=== PATIENT | female | born 1945 | race Caucasian/White ===

== ENCOUNTER → 2016-07-13 | Outpatient (CLI) | payer MEDICARE, OTHER ==
--- NOTE | 2016-07-13 14:33 | CR ---
EXAMINATION: Two-view chest (PA and Lateral views). HISTORY: Pain. FINDINGS: The trachea is midline. The cardiomediastinal silhouette is within normal limits. No pulmonary infil trates, effusions or pneumothorax. Mild chronic interstitial prominence. Degenerative changes are noted within the shoulders bilaterally. IMPRESSION: No acute cardiopulmonary process.
--- NOTE | 2016-07-13 16:58 | CR ---
EXAMINATION: Pelvis HISTORY: Pain COMPARISON: None TECHNIQUE: AP view FINDINGS: There is no acute osseous abnormality or fracture identified. SI joints are symmetric with mild anterior osteophytes. Bone mineralization appears normal to mildly osteopenic. Prominent osteo phytes are noted along the superior rims of the hips bilaterally with likely minimal joint space marly rowing. Postsurgical changes are noted within the lower lumbar spine. IMPRESSION: Degenerative changes without acute findings.
== END ==
LOC: MW.DI 13:28
PROVIDERS: ATTEND Emergency Medicine
DX: R10.2 Pelvic and perineal pain (principal); R07.9 Chest pain, unspecified
CPT/HCPCS: 71020; 72170; G0463

== ENCOUNTER → 2016-08-08 | Outpatient (CLI) | payer MEDICARE, OTHER | LOC: MW.CHENT 08:00 | PROVIDERS: ATTEND Otolaryngology | DX: H93.19 Tinnitus, unspecified ear (principal); H90.5 Unspecified sensorineural hearing loss | CPT/HCPCS: 99204 ==

== ENCOUNTER → 2016-08-23 | Outpatient (CLI) | payer MEDICARE, OTHER | LOC: MW.CHFP 10:23 | PROVIDERS: ATTEND Emergency Medicine | DX: N39.0 Urinary tract infection, site not specified (principal); R73.03 Prediabetes; I10 Essential (primary) hypertension | CPT/HCPCS: 81001; 87086; G0463 ==

== ENCOUNTER → 2016-09-18 | Outpatient (CLI) | payer MEDICARE, OTHER ==
--- NOTE | 2016-09-19 09:52 | CR ---
EXAMINATION: Left humerus HISTORY: Pain COMPARISON: None TECHNIQUE: 2 views FINDINGS/IMPRESSION: Advanced osteoarthritic changes are noted within the left shoulder. No fracture or acute osseous abnormality. Bone mineralization is otherwise normal.
== END | disposition home or self-care (01) ==
LOC: MW.CHFP 15:14
PROVIDERS: ATTEND Physician Assistant
DX: M79.622 Pain in left upper arm (principal); M19.012 Primary osteoarthritis, left shoulder
CPT/HCPCS: 73060-26-LT; 73060-LT; 99214

== ENCOUNTER 2016-11-30 08:18 | Day surgery (SDC) | payer MEDICARE, OTHER ==
[~2016-11-30 08:18] MED LIST: Lactated Ringers 1,000 ML IV SCH
[2016-11-30] MEDS ORDERED: Propofol 200 MG/20 ML SDV ONE ×5 (09:02→10:39)
[2016-11-30] MEDS ORDERED: Lidocaine 2% 5 ML SDV ONE (09:02)
[2016-11-30] MEDS ORDERED: fentaNYL 100 MCG/2 ML SDV ONE (09:03)
[2016-11-30] MEDS ORDERED: Midazolam 1 MG/ML 2 ML SDV ONE (09:03)
--- NOTE | 2016-11-30 09:18 | PCM.PREANE ---
Preanesthetic Assessment - Anesthesia/Transfusion/Family Hx Anesthesia History: Prior Anesthesia Without Reaction Other Type of Anesthesia Reaction Comment: Denies any known problem in pst, G- Daughter w leukemia had problems Family History of Anesthesia Reaction: Yes Intubation History: Unknown - Review of Systems General: No Symptoms Pulmonary: No Symptoms Cardiovascular: No Symptoms Gastrointestinal: No Symptoms Neurological: No Symptoms Other: Reports: None - Physical Assessment O2 Sat by Pulse Oximetry: 96 Respiratory Rate: 16 Vital Signs: Last Vital Signs Temp 36.7 C 11/30/16 08:52 Pulse 99 11/30/16 08:52 Resp 16 11/30/16 08:52 BP 138/60 11/30/16 08:52 Pulse Ox 96 11/30/16 08:52 Height: 1.73 m Weight: 87.543 kg ASA Class: 3 Mental Status: Alert & Oriented x3 Airway Class: Mallampati = 2 Dentition: Reports: Partial (fixed upper), [place](s) (multiple upper and lower), Implants (x1 upper right) Thyro-Mental Finger Breadths: 3 Mouth Opening Finger Breadths: 3 ROM/Head Extension: Full Lungs: Clear to Auscultation, Normal Respiratory Effort Cardiovascular: Regular Rate, Regular Rhythm - Allergies Allergies/Adverse Reactions: Allergies Allergy/AdvReac Type Severity Reaction Status Date / Time duloxetine Allergy Dizziness Verified 11/28/16 08:20 hydrochlorothiazide Allergy lowers Verified 11/28/16 14:25 [From Maxzide] potassium meclizine Allergy Other Verified 02/09/15 14:21 metformin Allergy Renal Verified 11/28/16 08:20 Failure Sulfa (Sulfonamide Allergy Hives Verified 02/09/15 14:21 Antibiotics) Thiazides Allergy lowers Verified 11/28/16 14:26 potassium triamterene [From Maxzide] Allergy Other Verified 02/09/15 14:21 Adhesive tape Allergy skin turns Uncoded 11/28/16 14:26 brown meclizine Allergy palpatation Uncoded 11/28/16 14:27 s - Blood Blood Available: No - Anesthesia Plan Pre-Op Medication Ordered: None - Acknowledgements Anesthesia Type Planned: MAC Pt an Appropriate Candidate for the Planned Anesthesia: Yes Alternatives and Risks of Anesthesia Discussed w Pt/Guardian: Yes Pt/Guardian Understands and Agrees with Anesthesia Plan: Yes PreAnesthesia Questionnaire HEENT History: Reports: Other (See Below) Other HEENT History: wears glasses Cardiovascular History: Reports: Heart Murmur, High Cholesterol, [place] Other Cardiovascular History: "had [place] but didnt know I had it, showed on EKG", MVP, bifascicular block with PRWP, h/o palpitations (not recently) Gastrointestinal History: Reports: Colon Polyp, Other (See Below) Other Gastrointestinal History: hx rectal cancer Genitourinary History: Reports: Chronic Renal Insuffiency ACCOUNT COORDINATOR History: Reports: Musculoskeletal History: Reports: Arthritis, Neck Pain, Chronic, Osteoarthritis , Osteoporosis, RA, Other (See Below) (chronic pain syndrome) Neurological History: Reports: Migraines, Other (See Below) (peripheral neuropathy) Psychiatric History: Reports: Anxiety, Depression Endocrine/Metabolic History: Reports: Hypothyroidism, Other (See Below) ( borderline diabetes) Hematologic History: Reports: Other (See Below) Other Hematologic History: "I bleed easily lately" Oncologic (Cancer) History: Reports: Other (See Below) Other Oncologic History: rectal cancer Dermatologic History: Reports: Psoriasis - Past Surgical History Head Surgeries/Procedures: Reports: None HEENT Surgical History: Reports: Tonsillectomy, Other (See Below) Other HEENT Surgeries/Procedures: lashell blepharoplasty GI Surgical History: Reports: Cholecystectomy, Colonoscopy, EGD, Other (See Below) (hemorrhoidectomy, radiation and chemo for anal cancer '03) Other Female Surgeries/Procedures: diagnostic cysto Neurological Surgical History: Reports: Lumbar Spine Other Neurological Surgeries/Procedures: back surgery Musculoskeletal Surgical History: Reports: Knee Replacement, Shoulder Surgery Other Musculoskeletal Surgeries/Procedures:: lashell knee replacement, lashell thumb surgery - SUBSTANCE USE Smoking Status *Q: Never Smoker Second Hand Smoke Exposure: No Days Per Week of Alcohol Use: 0 Number of Drinks Per Day: 0 Total Drinks Per Week: 0 Recreational Drug Use History: No - HOME MEDS Home Medications: Home Meds Furosemide [Lasix] 40 mg PO DAILY 02/02/14 [History] Potassium 20 meq PO DAILY 02/02/14 [History] Pravastatin [Pravachol] 20 mg PO DAILY 02/02/14 [History] Spironolactone [Aldactone] 25 mg PO DAILY 02/02/14 [History] traMADol [Ultram ER] 50 mg PO ASDIRECTED PRN 02/02/14 [History] InFLIXimab [Remicade] 100 mg IV ASDIRECTED 03/04/14 [History] Krill/Om-3/DHA/EPA/Phospho/Ast [Krill Oil 1,000 mg Softgel] 1,000 mg PO BID [History] Lutein/Minerals/Vit A,C & E [Ocuvite] 1 tab PO DAILY 03/04/14 [History] Multivitamin [Multi Vitamin Daily] 1 tab PO DAILY 03/04/14 [History] traZODone HCl [Trazodone HCl] 100 mg PO BEDTIME PRN 03/04/14 [History] Aspirin 81 mg PO DAILY 02/09/15 [History] Cholecalciferol (Vitamin D3) [Vitamin D3] 1,000 units PO DAILY 11/28/16 [History ] Emollient Combination No.10 [Pedro Cream] 1 applic TOP ASDIRECTED 11/28/16 [ History] Emollient Combination No.10 [Biafine] 1 applic TOP ASDIRECTED 11/28/16 [History] Levothyroxine Sodium [Synthroid] 112 mcg PO DAILY 11/28/16 [History] Lidocaine/Prilocaine [Lidocaine-Prilocaine Cream] 1 applic TOP ASDIRECTED PRN [History] Magnesium 200 mg PO DAILY 11/28/16 [History] Omeprazole 20 mg PO DAILY 11/28/16 [History] Ondansetron [Zofran Odt] 8 mg SL ASDIRECTED PRN 11/28/16 [History] Sertraline HCl 100 mg PO DAILY 11/28/16 [History] buPROPion HCl [Wellbutrin Xl] 150 mg PO DAILY 11/28/16 [History] - CURRENT (IN HOUSE) MEDS Current Meds: Current Medications Lactated Ringer's (Ringers, Lactated) 1,000 mls @ 125 mls/hr IV ASDIRECTED ROSLYN Last Admin: 11/30/16 08:46 Dose: 125 mls/hr Discontinued Medications Fentanyl (Sublimaze) Confirm Administered Dose 100 mcg .ROUTE .STK-MED ONE Stop: 11/30/16 09:04 Lidocaine (Xylocaine-Mpf 2%) Confirm Administered Dose 5 ml .ROUTE .STK-MED ONE Stop: 11/30/16 09:03 Midazolam HCl (Versed 1 Mg/Ml) Confirm Administered Dose 2 mg .ROUTE .STK-MED ONE Stop: 11/30/16 09:04 Propofol (Diprivan 20 Ml) Confirm Administered Dose 200 mg .ROUTE .STK-MED ONE Stop: 11/30/16 09:03
--- NOTE | 2016-11-30 11:05 | PCM.OPNOTE ---
- General Post-Op/Procedure Note Date of Surgery/Procedure: 11/30/16 Operative Procedure(s): Colonoscopy with cold rectal polypectomy and cecal biopsies Pre Op Diagnosis: Change in bowel habits. Rectal bleeding. Remote history of squamous cell carcinoma of the anus, treated with radiation therapy. Post-Op Diagnosis: Nonspecific colitis of the cecum. Proctitis. Anesthesia Technique: MAC (ASA III) Primary Surgeon: Ivan Dyer Condition: Good Free Text/Narrative:: Dictation [id number] CPT CODE 17159
[2016-11-30] MEDS ORDERED: Lactated Ringers 1,000 ML IV SCH (11:15)
[2016-11-30 11:27] VITALS: BP 96/48
--- NOTE | 2016-11-30 16:19 | OR ---
SURGEON: Ivan Dyer M.D. DATE OF PROCEDURE: 11/30/2016 OPERATION PERFORMED: Colonoscopy with cecal biopsies and cold rectal polypectomy. ANESTHESIA: MAC. ASA CLASSIFICATION: III. PREOPERATIVE DIAGNOSES: 1. Change in bowel habits. 2. Rectal bleeding. 3. History of squamous cell carcinoma of the anus, treated remotely. POSTOPERATIVE DIAGNOSES: 1. Nonspecific colitis in the cecum. 2. Rectal polyp. 3. Proctitis. DESCRIPTION OF PROCEDURE: The patient was taken to the endoscopy room and positioned on the endoscopy table in the left lateral decubitus position. Time-out was called for appropriate identification of the patient and procedure. Monitored anesthesia care was provided. The colonoscope was inserted into the rectum and advanced with great difficulty to the cecum. Cecum was identified by internal landmarks and external pressure. There was some blood present in the cecum and proximal ascending colon. Biopsies of this area were obtained. The colonoscope was retroflexed to visualize the ascending colon from below, then straightened, and slowly withdrawn. The remainder of the ascending colon, hepatic flexure, transverse colon, splenic flexure, descending colon, and sigmoid colon showed no tumors, polyps, diverticula, angiodysplasia, or evidence of inflammatory bowel disease. One polyp was encountered in the proximal rectum and removed with the cold biopsy forceps. The distal rectum does show significant inflammatory changes consistent with her history of radiation treatment. I did not see any tumor masses. Despite multiple maneuvers, we were never able to retroflex the colonoscope in the rectum. The colonoscope was then removed with the patient having tolerated the procedure well. It should be noted that prior to insertion of the colonoscope at beginning of the procedure, digital rectal examination was done and no masses were noted in the rectum. The patient tolerated the procedure well and was taken to recovery room in stable condition. HALEY / JARED /[id number]
== END 2016-11-30 11:44 | disposition home or self-care (01) ==
LOC: MW.SDS 08:18
PROVIDERS: ATTEND Surgery
PROC: 0DBH8ZX Excision of Cecum, Via Natural or Artificial Opening Endoscopic, Diagnostic (ICD-10-PCS; principal; 2016-11-30)
PROC: 0DBP8ZX Excision of Rectum, Via Natural or Artificial Opening Endoscopic, Diagnostic (ICD-10-PCS; 2016-11-30)
DX: Z12.11 Encounter for screening for malignant neoplasm of colon (principal); D12.8 Benign neoplasm of rectum; Z85.048 Personal history of other malignant neoplasm of rectum, rectosigmoid junction, and anus; R19.4 Change in bowel habit; K92.1 Melena; K62.89 Other specified diseases of anus and rectum; K52.9 Noninfective gastroenteritis and colitis, unspecified; Z86.010 Personal history of colon polyps; I12.9 Hypertensive chronic kidney disease with stage 1 through stage 4 chronic kidney disease, or unspecified chronic kidney disease; N18.9 Chronic kidney disease, unspecified; R73.03 Prediabetes; M54.2 Cervicalgia; F51.04 Psychophysiologic insomnia; G89.4 Chronic pain syndrome; F32.9 Major depressive disorder, single episode, unspecified; R26.81 Unsteadiness on feet; Z98.1 Arthrodesis status; E78.00 Pure hypercholesterolemia, unspecified; I95.9 Hypotension, unspecified; E03.9 Hypothyroidism, unspecified; M51.36 Other intervertebral disc degeneration, lumbar region; M48.06 Spinal stenosis, lumbar region; I34.1 Nonrheumatic mitral (valve) prolapse; R42 Dizziness and giddiness; M16.12 Unilateral primary osteoarthritis, left hip; G62.9 Polyneuropathy, unspecified; L40.50 Arthropathic psoriasis, unspecified; M06.9 Rheumatoid arthritis, unspecified; G47.9 Sleep disorder, unspecified; H93.19 Tinnitus, unspecified ear; Z79.82 Long term (current) use of aspirin; Z79.899 Other long term (current) drug therapy; Z88.2 Allergy status to sulfonamides; Z88.8 Allergy status to other drugs, medicaments and biological substances; Z91.048 Other nonmedicinal substance allergy status; Z98.84 Bariatric surgery status
CPT/HCPCS: 45380; J2250; J3010; J7120; 00810; 88305; J2704

== ENCOUNTER 2018-02-12 18:12 | Observation (INO) | payer MEDICARE, OTHER ==
[2018-02-12] MEDS ORDERED: Ondansetron 4 MG/2 ML SDV IVPUSH ONE ×2 (18:18→19:01)
--- NOTE | 2018-02-12 18:20 | EDM.PDOC ---
<Alvin Ceja - Last Filed: 02/12/18 22:26> ED HPI GENERAL MEDICAL PROBLEM - General Stated Complaint: VOMITING AND LOTS OF GAS Time Seen by Provider: 02/12/18 18:17 Source of Information: Reports: Patient History Limitations: Reports: No Limitations - History of Present Illness INITIAL COMMENTS - FREE TEXT/NARRATIVE: Dr. Ceja taking our patient care at 2030. I then thoroughly briefed on the patient and have reviewed all pertinent labs and radiologic findings. I personally examined the patient and agree with the above. Patient does have leukocytosis as well as a confirmed 9 mm obstructing calculus in the proximal right ureter with moderate hydronephrosis. I did order blood cultures as well as lactate and started the patient on Rocephin as well as gentamicin. Urinalysis is still pending. Urinalysis positive for acute cystitis. As above patient is on antibiotics. I did call Dr. Brunner, urologist and advised of the patient. He is in route to see the patient. Patient admitted observation Dr. Brunner - Related Data Allergies Allergy/AdvReac Type Severity Reaction Status Date / Time duloxetine Allergy Dizziness Verified 02/13/18 07:49 hydrochlorothiazide Allergy lowers Verified 02/13/18 07:49 [From Maxzide] potassium meclizine Allergy Other Verified 02/12/18 18:40 metformin Allergy Renal Verified 02/13/18 07:49 Failure Sulfa (Sulfonamide Allergy Hives Verified 02/13/18 07:49 Antibiotics) Thiazides Allergy lowers Verified 02/13/18 07:49 potassium triamterene [From Maxzide] Allergy Other Verified 02/13/18 07:49 Adhesive tape Allergy skin turns Uncoded 11/28/16 14:26 brown meclizine Allergy palpatation Uncoded 02/12/18 18:40 s Home Meds: Home Meds Furosemide [Lasix] 40 mg PO DAILY 02/02/14 [History] Potassium 20 meq PO DAILY 02/02/14 [History] Pravastatin [Pravachol] 20 mg PO DAILY 02/02/14 [History] Spironolactone [Aldactone] 25 mg PO DAILY 02/02/14 [History] traMADol [Ultram ER] 50 mg PO ASDIRECTED PRN 02/02/14 [History] Krill/Om-3/DHA/EPA/Phospho/Ast [Krill Oil 1,000 mg Softgel] 1,000 mg PO BID [History] traZODone HCl [Trazodone HCl] 100 mg PO BEDTIME PRN 03/04/14 [History] Aspirin 81 mg PO DAILY 02/09/15 [History] Levothyroxine Sodium [Synthroid] 112 mcg PO DAILY 11/28/16 [History] Magnesium 100 mg PO DAILY 11/28/16 [History] Omeprazole 20 mg PO DAILY 11/28/16 [History] Sertraline HCl 100 mg PO DAILY 11/28/16 [History] buPROPion HCl [Wellbutrin Xl] 150 mg PO DAILY 11/28/16 [History] Lactobacillus Acidophilus [Probiotic] 1 cap PO DAILY 02/12/18 [History] Multivit-Min/FA/Lycopene/Lut [Centrum Silver Tablet] 1 each PO DAILY 02/12/18 [ History] Vit A/Vit C/Vit E/Zinc/Copper [Preservision] 2 each PO DAILY 02/12/18 [History] oxyCODONE 5 tab PO ASDIRECTED PRN 02/12/18 [History] ED ROS GENERAL - Review of Systems Review Of Systems: ROS reveals no pertinent complaints other than HPI. ED EXAM, GI/ABD - Physical Exam Exam: See Below Course - Vital Signs Last Recorded V/S: Last Vital Signs Temp 98.6 F 02/14/18 08:00 Pulse 73 02/14/18 08:00 Resp 14 02/14/18 08:00 BP 99/56 L 02/14/18 08:00 Pulse Ox 96 02/14/18 08:00 - Orders/Labs/Meds Labs: Laboratory Tests 02/12/18 02/12/18 02/12/18 Range/Units 18:30 18:30 18:30 WBC 14.05 H (4.0-11.0) K/uL RBC 4.94 (4.30-5.90) M/uL Hgb 14.9 (12.0-16.0) g/dL Hct 43.0 (36.0-46.0) % MCV 87.0 (80.0-98.0) fL MCH 30.2 (27.0-32.0) pg MCHC 34.7 (31.0-37.0) g/dL RDW Std Deviation 45.9 (28.0-62.0) fl RDW Coeff of Kelley 14 (11.0-15.0) % Plt Count 112 L (150-400) K/uL MPV 11.70 (7.40-12.00) fL Neut % (Auto) 91.1 H (48.0-80.0) % Lymph % (Auto) 5.5 L (16.0-40.0) % Harvey % (Auto) 2.7 (0.0-15.0) % Eos % (Auto) 0.6 (0.0-7.0) % Baso % (Auto) 0.1 (0.0-1.5) % Neut # (Auto) 12.8 H (1.4-5.7) K/uL Lymph # (Auto) 0.8 (0.6-2.4) K/uL Harvey # (Auto) 0.4 (0.0-0.8) K/uL Eos # (Auto) 0.1 (0.0-0.7) K/uL Baso # (Auto) 0.0 (0.0-0.1) K/uL Nucleated RBC % 0.0 /100WBC Nucleated RBCs # 0 K/uL Lactate (0.20-2.00) mmol/L Sodium 138 (136-145) mmol/L Potassium 3.9 (3.5-5.1) mmol/L Chloride 102 (98-107) mmol/L Carbon Dioxide 30.8 (21.0-32.0) mmol/L BUN 22 H (7.0-18.0) mg/dL Creatinine 1.5 H (0.6-1.0) mg/dL Est Cr Clr Drug Dosing 34.70 mL/min Estimated GFR (MDRD) 34.2 ml/min Glucose 192 H (74-106) mg/dL Calcium 9.8 (8.5-10.1) mg/dL Total Bilirubin 0.8 (0.2-1.0) mg/dL AST 27 (15-37) IU/L ALT 26 (14-63) IU/L Alkaline Phosphatase 134 H (46-116) U/L Total Protein 8.3 H (6.4-8.2) g/dL Albumin 3.9 (3.4-5.0) g/dL Globulin 4.4 H (2.0-3.5) g/dL Albumin/Globulin Ratio 0.9 L (1.3-2.8) Amylase 38 (25-115) U/L Lipase 198 (73-393) U/L Urine Color Urine Appearance Urine pH (5.0-8.0) Ur Specific Levasy (1.001-1.035) Urine Protein (NEGATIVE) mg/dL Urine Glucose (UA) (NEGATIVE) mg/dL Urine Ketones (NEGATIVE) mg/dL Urine Occult Blood (NEGATIVE) Urine Nitrite (NEGATIVE) Urine Bilirubin (NEGATIVE) Urine Urobilinogen (<2.0) EU/dL Ur Leukocyte Esterase (NEGATIVE) Urine RBC (0-2/HPF) Urine WBC (0-5/HPF) Ur Epithelial Cells (NONE-FEW) Urine Bacteria (NEGATIVE) Urine Mucus (NONE-MOD) 02/12/18 02/12/18 Range/Units 20:40 21:10 WBC (4.0-11.0) K/uL RBC (4.30-5.90) M/uL Hgb (12.0-16.0) g/dL Hct (36.0-46.0) % MCV (80.0-98.0) fL MCH (27.0-32.0) pg MCHC (31.0-37.0) g/dL RDW Std Deviation (28.0-62.0) fl RDW Coeff of Kelley (11.0-15.0) % Plt Count (150-400) K/uL MPV (7.40-12.00) fL Neut % (Auto) (48.0-80.0) % Lymph % (Auto) (16.0-40.0) % Harvey % (Auto) (0.0-15.0) % Eos % (Auto) (0.0-7.0) % Baso % (Auto) (0.0-1.5) % Neut # (Auto) (1.4-5.7) K/uL Lymph # (Auto) (0.6-2.4) K/uL Harvey # (Auto) (0.0-0.8) K/uL Eos # (Auto) (0.0-0.7) K/uL Baso # (Auto) (0.0-0.1) K/uL Nucleated RBC % /100WBC Nucleated RBCs # K/uL Lactate 2.0 (0.20-2.00) mmol/L Sodium (136-145) mmol/L Potassium (3.5-5.1) mmol/L Chloride (98-107) mmol/L Carbon Dioxide (21.0-32.0) mmol/L BUN (7.0-18.0) mg/dL Creatinine (0.6-1.0) mg/dL Est Cr Clr Drug Dosing mL/min Estimated GFR (MDRD) ml/min Glucose (74-106) mg/dL Calcium (8.5-10.1) mg/dL Total Bilirubin (0.2-1.0) mg/dL AST (15-37) IU/L ALT (14-63) IU/L Alkaline Phosphatase (46-116) U/L Total Protein (6.4-8.2) g/dL Albumin (3.4-5.0) g/dL Globulin (2.0-3.5) g/dL Albumin/Globulin Ratio (1.3-2.8) Amylase (25-115) U/L Lipase (73-393) U/L Urine Color YELLOW Urine Appearance CLEAR Urine pH 7.5 (5.0-8.0) Ur Specific Levasy 1.015 (1.001-1.035) Urine Protein NEGATIVE (NEGATIVE) mg/dL Urine Glucose (UA) NEGATIVE (NEGATIVE) mg/dL Urine Ketones NEGATIVE (NEGATIVE) mg/dL Urine Occult Blood SMALL H (NEGATIVE) Urine Nitrite POSITIVE H (NEGATIVE) Urine Bilirubin NEGATIVE (NEGATIVE) Urine Urobilinogen 1.0 (<2.0) EU/dL Ur Leukocyte Esterase MODERATE (NEGATIVE) Urine RBC 0-2 (0-2/HPF) Urine WBC 4-8 (0-5/HPF) Ur Epithelial Cells RARE (NONE-FEW) Urine Bacteria 2+ H (NEGATIVE) Urine Mucus LIGHT (NONE-MOD) Meds: Medications Discontinued Medications Generic Name Dose Route Start Last Admin Trade Name Freq PRN Reason Stop Dose Admin Hydrocodone Bitart/Acetaminophen 1 tab 02/12/18 22:25 02/13/18 21:42 Rio 325-5 Mg PO 1 tab Q4H PRN Administration Pain Bupropion HCl 150 mg 02/13/18 09:00 02/14/18 08:30 Wellbutrin Xl PO 150 mg DAILY ROSLYN Administration Cholecalciferol 1,000 units 02/13/18 09:00 02/14/18 08:30 Vitamin D3 PO 1,000 units DAILY ROSLYN Administration Dexamethasone Confirm 02/13/18 07:18 Dexamethasone Administered 02/13/18 07:19 Dose 20 mg .ROUTE .STK-MED ONE Fentanyl Confirm 02/13/18 07:18 Sublimaze Administered 02/13/18 07:19 Dose 100 mcg .ROUTE .STK-MED ONE Glycopyrrolate Confirm 02/13/18 08:58 Robinul Administered 02/13/18 08:59 Dose 0.2 mg .ROUTE .STK-MED ONE Hydromorphone HCl 1 mg 02/12/18 20:44 02/12/18 20:54 Dilaudid IVPUSH 02/12/18 20:45 1 mg ONETIME ONE Administration Sodium Chloride 1,000 mls @ 999 mls/hr 02/12/18 18:25 02/12/18 18:57 Normal Saline IV 02/12/18 19:25 200 mls/hr STAT ONE Administration Ceftriaxone Sodium/Dextrose 1 50 mls @ 100 mls/hr 02/12/18 20:19 02/12/18 21: 21 gm/ Premix IV 02/12/18 20:48 100 mls/hr ONETIME ONE Administration Gentamicin Sulfate 360 mg/ 109 mls @ 218 mls/hr 02/12/18 21:00 02/12/18 22:09 Sodium Chloride IV 02/12/18 21:29 218 mls/hr ONETIME ONE Administration Lactated Ringer's 1,000 mls @ 100 mls/hr 02/12/18 22:30 02/14/18 02:39 Ringers, Lactated IV 100 mls/hr ASDIRECTED ROSLYN Administration Ciprofloxacin/Dextrose 400 mg/ 200 mls @ 200 mls/hr 02/12/18 23:00 02/13/18 23:28 Premix IV 200 mls/hr Q12H ROSLYN Administration Ciprofloxacin/Dextrose 400 mg/ 200 mls @ 200 mls/hr 02/12/18 22:43 02/13/18 10:00 Premix IV 02/12/18 23:42 Not Given ONCALL ONE Lidocaine HCl Confirm 02/13/18 07:18 Xylocaine-Mpf 1% Administered 02/13/18 07:19 Dose 5 mls @ as directed .ROUTE .STK-MED ONE Ciprofloxacin/Dextrose Confirm 02/13/18 08:30 Cipro In D5w 400 Mg/200 Ml Administered 02/13/18 08:31 Dose 200 mls @ as directed .ROUTE .STK-MED ONE Tobramycin 80 mg/ Dextrose/ 52 mls @ 104 mls/hr 02/14/18 21:00 Water IV Q24H ROSLYN Influenza Virus Vaccine 1 each 02/12/18 23:45 Pharmacy To Dose - Influenza Vaccine IM 02/12/18 23:46 ONETIME ONE Iopamidol Confirm 02/13/18 07:33 Isovue-200 (41%) Administered 02/13/18 07:34 Dose 50 ml .ROUTE .STK-MED ONE Levothyroxine Sodium 112 mcg 02/13/18 08:00 02/14/18 06:35 Levothyroxine PO 112 mcg ACBREAKFAST ROSLYN Administration Midazolam HCl Confirm 02/13/18 07:17 Versed 1 Mg/Ml Administered 02/13/18 07:18 Dose 2 mg .ROUTE .STK-MED ONE Morphine Sulfate 2 mg 02/12/18 19:13 02/12/18 19:28 Morphine IVPUSH 02/12/18 19:14 2 mg ONETIME ONE Administration Neostigmine Methylsulfate Confirm 02/13/18 08:58 Neostigmine Administered 02/13/18 08:59 Dose 5 mg .ROUTE .STK-MED ONE Ondansetron HCl 4 mg 02/12/18 18:18 02/12/18 18:36 Zofran IVPUSH 02/12/18 18:19 4 mg ONETIME ONE Administration Ondansetron HCl 4 mg 02/12/18 19:01 02/12/18 19:09 Zofran IVPUSH 02/12/18 19:02 4 mg ONETIME ONE Administration Ondansetron HCl 4 mg 02/12/18 22:25 Zofran PO Q4H PRN Nausea/Vomiting Ondansetron HCl Confirm 02/13/18 07:18 Zofran Administered 02/13/18 07:19 Dose 4 mg .ROUTE .STK-MED ONE Petrolatum 1 gm 02/12/18 22:45 Aquaphor With Natural Healing TOP ASDIRECTED PRN DRY SKIN Phenylephrine HCl Confirm 02/13/18 08:30 Phenylephrine In Ns 100 Mcg/Ml Administered 02/13/18 08:31 Dose 1 mg .ROUTE .STK-MED ONE Potassium Chloride 20 meq 02/13/18 09:00 02/14/18 08:29 Klor-Con M20 PO 20 meq DAILY ROLSYN Administration Pravastatin Sodium 20 mg 02/13/18 09:00 02/14/18 08:32 Pravachol PO 20 mg DAILY ROSLYN Administration Promethazine HCl 25 mg 02/12/18 19:43 02/12/18 19:48 Phenergan IM 02/12/18 19:44 25 mg ONETIME ONE Administration Propofol Confirm 02/13/18 07:21 Diprivan 20 Ml Administered 02/13/18 07:22 Dose 200 mg .ROUTE .STK-MED ONE Sertraline HCl 100 mg 02/13/18 09:00 02/14/18 08:29 Zoloft PO 100 mg DAILY ROSLYN Administration Spironolactone 25 mg 02/13/18 09:00 02/14/18 08:30 Aldactone PO 25 mg DAILY ROSLYN Administration Departure - Departure Time of Disposition: 22:27 Disposition: Admitted As Inpatient 67 Condition: Fair Clinical Impression: Nephrolithiasis, Acute on chronic renal insufficiency, Flank pain - Discharge Information <Alfred Hameed E - Last Filed: 02/14/18 20:04> ED HPI GENERAL MEDICAL PROBLEM - General Source of Information: Reports: Patient History Limitations: Reports: No Limitations - History of Present Illness INITIAL COMMENTS - FREE TEXT/NARRATIVE: HISTORY AND PHYSICAL: History of present illness: Patient is a 72-year-old female who presents to the emergency room today with complaints of nausea, vomiting and bilateral flank pain for the past 24 hours. She states she feels dehydrated and is concerned she may have "renal failure". She states she has had previous problems with her kidneys and had been admitted for this in the past, although this did not require dialysis. She denies any fever, chills, chest pain, shortness of breath or cough. Denies any abdominal pain, diarrhea, constipation or dysuria. Past medical history of heart murmur, chronic renal insufficiency, osteoarthritis, type 2 diabetes, hypothyroidism and rheumatoid arthritis. Primary care provider is Dr. White Review of systems: As per history of present illness and below otherwise all systems reviewed and negative. Past medical history: As per history of present illness and as reviewed below otherwise noncontributory. Surgical history: As per history of present illness and as reviewed below otherwise noncontributory. Social history: No reported history of drug or alcohol abuse. Family history: As per history of present illness and as reviewed below otherwise noncontributory. Physical exam: General: Well-developed and well-nourished 72-year-old female. Alert and oriented. Nontoxic appearing and in no acute distress. HEENT: Atraumatic, normocephalic, pupils equal and reactive bilaterally, negative for conjunctival pallor or scleral icterus, mucous membranes moist, throat clear, neck supple, nontender, trachea midline. No drooling or trismus noted. No meningeal signs Lungs: Clear to auscultation, breath sounds equal bilaterally, chest nontender. Heart: S1S2, regular rate and rhythm without overt murmur Abdomen: Soft, nondistended, nontender. Negative for masses or hepatosplenomegaly. Bilateral costovertebral tenderness. Pelvis: Stable nontender. Genitourinary: Deferred. Rectal: Deferred. Skin: Intact, warm, dry. No lesions or rashes noted. Extremities: Atraumatic, negative for cords or calf pain. Neurovascular unremarkable. Neuro: Awake, alert, oriented. Cranial nerves II through XII unremarkable. Cerebellum unremarkable. Motor and sensory unremarkable throughout. Exam nonfocal. Notes: Patient continues to complain of nausea after receiving the IV Zofran. Pain is "11/10" to bilateral flank area. New meds ordered. Elevated BUN and Creatinine. Waiting for CT results. Patient states nausea is not any better, will give Phenergan IM. CT shows a 9 mm obstructing stone to the right proximal ureter with moderate hydronephrosis. Small nonobstructing stone inferior pole of the right kidney. This information was shared with the patient. I'm still waiting for urinalysis. She states she will attempt to use the restroom or is willing to do a straight catheter sample. Dr Ceja has agreed to assume care of this patient at 2200. Diagnostics: CBC, CMP, UA, Amylase, Lipase, Abd/Pelvis CT without contrast Therapeutics: IV fluids, Zofran, Morphine Impression: Kidney Stone Definitive disposition and diagnosis as appropriate pending reevaluation and review of above. lower back pain Pain Score (Numeric/FACES): 9 Past Medical History HEENT History: Reports: Other (See Below) Other HEENT History: wears glasses Cardiovascular History: Reports: Heart Murmur, High Cholesterol, [place] Other Cardiovascular History: "had [place] but didnt know I had it, showed on EKG", MVP, bifascicular block with PRWP, h/o palpitations (not recently) Gastrointestinal History: Reports: Colon Polyp, Other (See Below) Other Gastrointestinal History: hx rectal cancer Genitourinary History: Reports: Chronic Renal Insuffiency [employer] History: Reports: Musculoskeletal History: Reports: Arthritis, Neck Pain, Chronic, Osteoarthritis , Osteoporosis, RA, Other (See Below) (chronic pain syndrome) Neurological History: Reports: Migraines, Other (See Below) (peripheral neuropathy) Psychiatric History: Reports: Anxiety, Depression Endocrine/Metabolic History: Reports: Hypothyroidism, Other (See Below) ( borderline diabetes) Hematologic History: Reports: Other (See Below) Other Hematologic History: "I bleed easily lately" Oncologic (Cancer) History: Reports: Other (See Below) Other Oncologic History: rectal cancer Dermatologic History: Reports: Psoriasis - Past Surgical History Head Surgeries/Procedures: Reports: None HEENT Surgical History: Reports: Tonsillectomy, Other (See Below) Other HEENT Surgeries/Procedures: lashell blepharoplasty GI Surgical History: Reports: Cholecystectomy, Colonoscopy, EGD, Other (See Below) (hemorrhoidectomy, radiation and chemo for anal cancer '03) Other Female Surgeries/Procedures: diagnostic cysto Neurological Surgical History: Reports: Lumbar Spine Other Neurological Surgeries/Procedures: back surgery Musculoskeletal Surgical History: Reports: Knee Replacement, Shoulder Surgery Other Musculoskeletal Surgeries/Procedures:: lashell knee replacement, lashell thumb surgery Course - Vital Signs Last Recorded V/S: Last Vital Signs Temp 98.6 F 02/14/18 08:00 Pulse 73 02/14/18 08:00 Resp 14 02/14/18 08:00 BP 99/56 L 02/14/18 08:00 Pulse Ox 96 02/14/18 08:00 - Orders/Labs/Meds Labs: Laboratory Tests 02/12/18 02/12/18 02/12/18 Range/Units 18:30 18:30 18:30 WBC 14.05 H (4.0-11.0) K/uL RBC 4.94 (4.30-5.90) M/uL Hgb 14.9 (12.0-16.0) g/dL Hct 43.0 (36.0-46.0) % MCV 87.0 (80.0-98.0) fL MCH 30.2 (27.0-32.0) pg MCHC 34.7 (31.0-37.0) g/dL RDW Std Deviation 45.9 (28.0-62.0) fl RDW Coeff of Kelley 14 (11.0-15.0) % Plt Count 112 L (150-400) K/uL MPV 11.70 (7.40-12.00) fL Neut % (Auto) 91.1 H (48.0-80.0) % Lymph % (Auto) 5.5 L (16.0-40.0) % Harvey % (Auto) 2.7 (0.0-15.0) % Eos % (Auto) 0.6 (0.0-7.0) % Baso % (Auto) 0.1 (0.0-1.5) % Neut # (Auto) 12.8 H (1.4-5.7) K/uL Lymph # (Auto) 0.8 (0.6-2.4) K/uL Harvey # (Auto) 0.4 (0.0-0.8) K/uL Eos # (Auto) 0.1 (0.0-0.7) K/uL Baso # (Auto) 0.0 (0.0-0.1) K/uL Nucleated RBC % 0.0 /100WBC Nucleated RBCs # 0 K/uL Lactate (0.20-2.00) mmol/L Sodium 138 (136-145) mmol/L Potassium 3.9 (3.5-5.1) mmol/L Chloride 102 (98-107) mmol/L Carbon Dioxide 30.8 (21.0-32.0) mmol/L BUN 22 H (7.0-18.0) mg/dL Creatinine 1.5 H (0.6-1.0) mg/dL Est Cr Clr Drug Dosing 34.70 mL/min Estimated GFR (MDRD) 34.2 ml/min Glucose 192 H (74-106) mg/dL Calcium 9.8 (8.5-10.1) mg/dL Total Bilirubin 0.8 (0.2-1.0) mg/dL AST 27 (15-37) IU/L ALT 26 (14-63) IU/L Alkaline Phosphatase 134 H (46-116) U/L Total Protein 8.3 H (6.4-8.2) g/dL Albumin 3.9 (3.4-5.0) g/dL Globulin 4.4 H (2.0-3.5) g/dL Albumin/Globulin Ratio 0.9 L (1.3-2.8) Amylase 38 (25-115) U/L Lipase 198 (73-393) U/L Urine Color Urine Appearance Urine pH (5.0-8.0) Ur Specific Levasy (1.001-1.035) Urine Protein (NEGATIVE) mg/dL Urine Glucose (UA) (NEGATIVE) mg/dL Urine Ketones (NEGATIVE) mg/dL Urine Occult Blood (NEGATIVE) Urine Nitrite (NEGATIVE) Urine Bilirubin (NEGATIVE) Urine Urobilinogen (<2.0) EU/dL Ur Leukocyte Esterase (NEGATIVE) Urine RBC (0-2/HPF) Urine WBC (0-5/HPF) Ur Epithelial Cells (NONE-FEW) Urine Bacteria (NEGATIVE) Urine Mucus (NONE-MOD) 02/12/18 02/12/18 Range/Units 20:40 21:10 WBC (4.0-11.0) K/uL RBC (4.30-5.90) M/uL Hgb (12.0-16.0) g/dL Hct (36.0-46.0) % MCV (80.0-98.0) fL MCH (27.0-32.0) pg MCHC (31.0-37.0) g/dL RDW Std Deviation (28.0-62.0) fl RDW Coeff of Kelley (11.0-15.0) % Plt Count (150-400) K/uL MPV (7.40-12.00) fL Neut % (Auto) (48.0-80.0) % Lymph % (Auto) (16.0-40.0) % Harvey % (Auto) (0.0-15.0) % Eos % (Auto) (0.0-7.0) % Baso % (Auto) (0.0-1.5) % Neut # (Auto) (1.4-5.7) K/uL Lymph # (Auto) (0.6-2.4) K/uL Harvey # (Auto) (0.0-0.8) K/uL Eos # (Auto) (0.0-0.7) K/uL Baso # (Auto) (0.0-0.1) K/uL Nucleated RBC % /100WBC Nucleated RBCs # K/uL Lactate 2.0 (0.20-2.00) mmol/L Sodium (136-145) mmol/L Potassium (3.5-5.1) mmol/L Chloride (98-107) mmol/L Carbon Dioxide (21.0-32.0) mmol/L BUN (7.0-18.0) mg/dL Creatinine (0.6-1.0) mg/dL Est Cr Clr Drug Dosing mL/min Estimated GFR (MDRD) ml/min Glucose (74-106) mg/dL Calcium (8.5-10.1) mg/dL Total Bilirubin (0.2-1.0) mg/dL AST (15-37) IU/L ALT (14-63) IU/L Alkaline Phosphatase (46-116) U/L Total Protein (6.4-8.2) g/dL Albumin (3.4-5.0) g/dL Globulin (2.0-3.5) g/dL Albumin/Globulin Ratio (1.3-2.8) Amylase (25-115) U/L Lipase (73-393) U/L Urine Color YELLOW Urine Appearance CLEAR Urine pH 7.5 (5.0-8.0) Ur Specific Levasy 1.015 (1.001-1.035) Urine Protein NEGATIVE (NEGATIVE) mg/dL Urine Glucose (UA) NEGATIVE (NEGATIVE) mg/dL Urine Ketones NEGATIVE (NEGATIVE) mg/dL Urine Occult Blood SMALL H (NEGATIVE) Urine Nitrite POSITIVE H (NEGATIVE) Urine Bilirubin NEGATIVE (NEGATIVE) Urine Urobilinogen 1.0 (<2.0) EU/dL Ur Leukocyte Esterase MODERATE (NEGATIVE) Urine RBC 0-2 (0-2/HPF) Urine WBC 4-8 (0-5/HPF) Ur Epithelial Cells RARE (NONE-FEW) Urine Bacteria 2+ H (NEGATIVE) Urine Mucus LIGHT (NONE-MOD)
[2018-02-12] MEDS ORDERED: Sodium Chloride 0.9% 1,000 ML IV ONE (18:25)
[2018-02-12] MEDS ORDERED: Morphine 2 MG/ML Syringe IVPUSH ONE (19:13)
[2018-02-12] MEDS ORDERED: Promethazine 25 MG/ML SDV IM ONE (19:43)
[2018-02-12] MEDS ORDERED: cefTRIAXone 1 GM in Premix Bag 1 BAG IV ONE (20:19)
[2018-02-12] MEDS ORDERED: HYDROmorphone 1 MG/ML Syringe IVPUSH ONE (20:44)
[2018-02-12] MEDS ORDERED: Gentamicin 360 MG in Sodium Chloride 0.9% 100 ML IV ONE (21:00)
[2018-02-12] MEDS ORDERED: Ondansetron 4 MG Tab PO PRN (22:25)
[2018-02-12] MEDS ORDERED: Ciprofloxacin in D5W 400 MG in Premix Bag 1 BAG IV ONE ×2 (22:43)
[2018-02-12] MEDS ORDERED: Petrolatum,White Ointment 50 GM Tube TOP PRN (22:45)
[2018-02-12] MEDS: Lactated Ringers 1,000 ML IV SCH (23:35)
[2018-02-12] MEDS: Ciprofloxacin in D5W 400 MG in Premix Bag 1 BAG IV SCH ×2 (23:40)
--- NOTE | 2018-02-13 03:10 | CONS ---
DATE OF CONSULTATION: DATE OF : 1945 PRIMARY CARE PHYSICIAN: None PCP HISTORY OF PRESENT ILLNESS: A 72-year-old, who presented to the emergency room with significant right-sided flank pain. She has had bilateral hip pains. She also had multiple other complaints. She had a UA that was positive for nitrite, 4 to 8 white blood cells per high power field. She had a CT scan that showed a 7 mm right upper ureteral stone with obstruction. Her white blood count was elevated at 14,000. Serum creatinine is 1.5 with a creatinine clearance of about 37. PAST MEDICAL HISTORY: Medical history is lengthy and significant includes: 1. Depression. 2. Hypothyroidism. 3. Restless legs syndrome. MEDICATIONS: List of medications is reviewed and is rather lengthy, it is all listed. PAST SURGICAL HISTORY: 1. Gallbladder. 2. Bilateral knee replacement. 3. Back fusion. PHYSICAL EXAMINATION: GENERAL: She is alert, somewhat sleepy. I suspect either from the medication or the pain medicine. HEART: Normal sinus rhythm. LUNGS: Clear. ABDOMEN: Mild tenderness over the right CVA. Abdomen is soft otherwise. There is a right upper quadrant scar from cholecystectomy. EXTREMITIES: Restless legs. No edema. DIAGNOSIS: A 7 mm obstructive right upper ureteral stone. PLAN: Cystoscopy, IV antibiotics, and double-J stent placement in the morning. ADINA COLEMAN /[id number]
[2018-02-13] MEDS: Acetaminophen/HYDROcodone 325-5 MG Tab PO PRN ×3 (03:34→21:42)
[2018-02-13] MEDS ORDERED: Midazolam 1 MG/ML 2 ML SDV ONE (07:17)
[2018-02-13] MEDS ORDERED: Ondansetron 4 MG/2 ML SDV ONE (07:18)
[2018-02-13] MEDS ORDERED: fentaNYL 100 MCG/2 ML SDV ONE (07:18)
[2018-02-13] MEDS ORDERED: Dexamethasone 4 MG/ML 5 ML MDV ONE (07:18)
[2018-02-13] MEDS ORDERED: Propofol 200 MG/20 ML SDV ONE (07:21)
[2018-02-13] MEDS ORDERED: Iopamidol 408 MG/ML 50 ML SDV ONE (07:33)
--- NOTE | 2018-02-13 08:05 | PCM.PREANE ---
Preanesthetic Assessment - Anesthesia/Transfusion/Family Hx Anesthesia History: Prior Anesthesia Without Reaction Other Type of Anesthesia Reaction Comment: Denies any known problem in pst, G- Daughter w leukemia had problems Family History of Anesthesia Reaction: No Transfusion History: No Prior Transfusion(s) Intubation History: Unknown - Review of Systems General: No Symptoms Pulmonary: No Symptoms Cardiovascular: No Symptoms Gastrointestinal: Abdominal Pain Neurological: Numbness, Paresthesia Other: Reports: Diabetes, Thyroid Problems, Depression, Anxiety - Physical Assessment NPO Status Date: 02/12/18 O2 Sat by Pulse Oximetry: 96 Respiratory Rate: 20 Vital Signs: Last Vital Signs Temp 37.1 C 02/13/18 04:00 Pulse 100 02/13/18 04:00 Resp 20 02/13/18 04:00 BP 98/56 L 02/13/18 04:00 Pulse Ox 96 02/13/18 04:00 Height: 1.73 m Weight: 81.374 kg ASA Class: 3 Mental Status: Alert & Oriented x3 Airway Class: Mallampati = 2 Dentition: Reports: Normal Dentition ROM/Head Extension: Full Lungs: Clear to Auscultation, Normal Respiratory Effort Cardiovascular: Regular Rate, Regular Rhythm - Lab Values: Laboratory Last Values WBC 14.05 K/uL (4.0-11.0) H 02/12/18 18:30 RBC 4.94 M/uL (4.30-5.90) 02/12/18 18:30 Hgb 14.9 g/dL (12.0-16.0) 02/12/18 18:30 Hct 43.0 % (36.0-46.0) 02/12/18 18:30 MCV 87.0 fL (80.0-98.0) 02/12/18 18:30 MCH 30.2 pg (27.0-32.0) 02/12/18 18:30 MCHC 34.7 g/dL (31.0-37.0) 02/12/18 18:30 RDW Std Deviation 45.9 fl (28.0-62.0) 02/12/18 18:30 RDW Coeff of Kelley 14 % (11.0-15.0) 02/12/18 18:30 Plt Count 112 K/uL (150-400) L 02/12/18 18:30 MPV 11.70 fL (7.40-12.00) 02/12/18 18:30 Neut % (Auto) 91.1 % (48.0-80.0) H 02/12/18 18:30 Lymph % (Auto) 5.5 % (16.0-40.0) L 02/12/18 18:30 Alfalfa % (Auto) 2.7 % (0.0-15.0) 02/12/18 18:30 Eos % (Auto) 0.6 % (0.0-7.0) 02/12/18 18:30 Baso % (Auto) 0.1 % (0.0-1.5) 02/12/18 18:30 Neut # (Auto) 12.8 K/uL (1.4-5.7) H 02/12/18 18:30 Lymph # (Auto) 0.8 K/uL (0.6-2.4) 02/12/18 18:30 Alfalfa # (Auto) 0.4 K/uL (0.0-0.8) 02/12/18 18:30 Eos # (Auto) 0.1 K/uL (0.0-0.7) 02/12/18 18:30 Baso # (Auto) 0.0 K/uL (0.0-0.1) 02/12/18 18:30 Nucleated RBC % 0.0 /100WBC 02/12/18 18:30 Nucleated RBCs # 0 K/uL 02/12/18 18:30 Lactate 2.0 mmol/L (0.20-2.00) 02/12/18 20:40 Sodium 138 mmol/L (136-145) 02/12/18 18:30 Potassium 3.9 mmol/L (3.5-5.1) 02/12/18 18:30 Chloride 102 mmol/L (98-107) 02/12/18 18:30 Carbon Dioxide 30.8 mmol/L (21.0-32.0) 02/12/18 18:30 BUN 22 mg/dL (7.0-18.0) H 02/12/18 18:30 Creatinine 1.5 mg/dL (0.6-1.0) H 02/12/18 18:30 Est Cr Clr Drug Dosing 34.70 mL/min 02/12/18 18:30 Estimated GFR (MDRD) 34.2 ml/min 02/12/18 18:30 Glucose 192 mg/dL (74-106) H 02/12/18 18:30 Calcium 9.8 mg/dL (8.5-10.1) 02/12/18 18:30 Total Bilirubin 0.8 mg/dL (0.2-1.0) 02/12/18 18:30 AST 27 IU/L (15-37) 02/12/18 18:30 ALT 26 IU/L (14-63) 02/12/18 18:30 Alkaline Phosphatase 134 U/L (46-116) H 02/12/18 18:30 Total Protein 8.3 g/dL (6.4-8.2) H 02/12/18 18:30 Albumin 3.9 g/dL (3.4-5.0) 02/12/18 18:30 Globulin 4.4 g/dL (2.0-3.5) H 02/12/18 18:30 Albumin/Globulin Ratio 0.9 (1.3-2.8) L 02/12/18 18:30 Amylase 38 U/L (25-115) 02/12/18 18:30 Lipase 198 U/L (73-393) 02/12/18 18:30 Urine Color YELLOW 02/12/18 21:10 Urine Appearance CLEAR 02/12/18 21:10 Urine pH 7.5 (5.0-8.0) 02/12/18 21:10 Ur Specific [place] 1.015 (1.001-1.035) 02/12/18 21:10 Urine Protein NEGATIVE mg/dL (NEGATIVE) 02/12/18 21:10 Urine Glucose (UA) NEGATIVE mg/dL (NEGATIVE) 02/12/18 21:10 Urine Ketones NEGATIVE mg/dL (NEGATIVE) 02/12/18 21:10 Urine Occult Blood SMALL (NEGATIVE) H 02/12/18 21:10 Urine Nitrite POSITIVE (NEGATIVE) H 02/12/18 21:10 Urine Bilirubin NEGATIVE (NEGATIVE) 02/12/18 21:10 Urine Urobilinogen 1.0 EU/dL (<2.0) 02/12/18 21:10 Ur Leukocyte Esterase MODERATE (NEGATIVE) 02/12/18 21:10 Urine RBC 0-2 (0-2/HPF) 02/12/18 21:10 Urine WBC 4-8 (0-5/HPF) 02/12/18 21:10 Ur Epithelial Cells RARE (NONE-FEW) 02/12/18 21:10 Urine Bacteria 2+ (NEGATIVE) H 02/12/18 21:10 Urine Mucus LIGHT (NONE-MOD) 02/12/18 21:10 - Allergies Allergies/Adverse Reactions: Allergies Allergy/AdvReac Type Severity Reaction Status Date / Time duloxetine Allergy Dizziness Verified 02/13/18 07:49 hydrochlorothiazide Allergy lowers Verified 02/13/18 07:49 [From Maxzide] potassium meclizine Allergy Other Verified 02/12/18 18:40 metformin Allergy Renal Verified 02/13/18 07:49 Failure Sulfa (Sulfonamide Allergy Hives Verified 02/13/18 07:49 Antibiotics) Thiazides Allergy lowers Verified 02/13/18 07:49 potassium triamterene [From Maxzide] Allergy Other Verified 02/13/18 07:49 Adhesive tape Allergy skin turns Uncoded 11/28/16 14:26 brown meclizine Allergy palpatation Uncoded 02/12/18 18:40 s - Anesthesia Plan Pre-Op Medication Ordered: None - Acknowledgements Anesthesia Type Planned: General Anesthesia Pt an Appropriate Candidate for the Planned Anesthesia: Yes Alternatives and Risks of Anesthesia Discussed w Pt/Guardian: Yes Pt/Guardian Understands and Agrees with Anesthesia Plan: Yes Additional Comments: PMH: CKD3 (creat 1.5, CCR-34), anxiety, depression, Psoriatic arthritis and ostroarthritis, DM2, thyroid replacement, GERD, peripheral neuropathy-BLE, 9mm stone in R proximal ureter. PLAN: GET PreAnesthesia Questionnaire HEENT History: Reports: Other (See Below) Other HEENT History: wears glasses Cardiovascular History: Reports: Heart Murmur, High Cholesterol, OK Other Cardiovascular History: "had OK but didnt know I had it, showed on EKG", MVP, bifascicular block with PRWP, h/o palpitations (not recently) Respiratory History: Reports: None Gastrointestinal History: Reports: Colon Polyp, Other (See Below) Other Gastrointestinal History: hx rectal cancer Genitourinary History: Reports: Chronic Renal Insuffiency HEEL PADDER History: Reports: Musculoskeletal History: Reports: Arthritis, Neck Pain, Chronic, Osteoarthritis , Osteoporosis, RA Neurological History: Reports: Migraines, Other (See Below) Psychiatric History: Reports: Anxiety, Depression Endocrine/Metabolic History: Reports: Diabetes, Type II, Hypothyroidism Hematologic History: Reports: Other (See Below) Other Hematologic History: "I bleed easily lately" Oncologic (Cancer) History: Reports: Other (See Below) Other Oncologic History: rectal cancer Dermatologic History: Reports: Psoriasis - Infectious Disease History Infectious Disease History: Reports: Chicken Pox, Measles, Mumps - Past Surgical History Head Surgeries/Procedures: Reports: None HEENT Surgical History: Reports: Tonsillectomy, Other (See Below) Other HEENT Surgeries/Procedures: lashell blepharoplasty GI Surgical History: Reports: Cholecystectomy, Colonoscopy, EGD Other Female Surgeries/Procedures: diagnostic cysto Neurological Surgical History: Reports: Lumbar Spine Other Neurological Surgeries/Procedures: back surgery Musculoskeletal Surgical History: Reports: Knee Replacement, Shoulder Surgery Other Musculoskeletal Surgeries/Procedures:: lashell knee replacement, lashell thumb surgery - SUBSTANCE USE Smoking Status *Q: Never Smoker Second Hand Smoke Exposure: No Recreational Drug Use History: No - HOME MEDS Home Medications: Home Meds Furosemide [Lasix] 40 mg PO DAILY 02/02/14 [History] Potassium 20 meq PO DAILY 02/02/14 [History] Pravastatin [Pravachol] 20 mg PO DAILY 02/02/14 [History] Spironolactone [Aldactone] 25 mg PO DAILY 02/02/14 [History] traMADol [Ultram ER] 50 mg PO ASDIRECTED PRN 02/02/14 [History] Krill/Om-3/DHA/EPA/Phospho/Ast [Krill Oil 1,000 mg Softgel] 1,000 mg PO BID [History] traZODone HCl [Trazodone HCl] 100 mg PO BEDTIME PRN 03/04/14 [History] Aspirin 81 mg PO DAILY 02/09/15 [History] Levothyroxine Sodium [Synthroid] 112 mcg PO DAILY 11/28/16 [History] Magnesium 100 mg PO DAILY 11/28/16 [History] Omeprazole 20 mg PO DAILY 11/28/16 [History] Sertraline HCl 100 mg PO DAILY 11/28/16 [History] buPROPion HCl [Wellbutrin Xl] 150 mg PO DAILY 11/28/16 [History] Lactobacillus Acidophilus [Probiotic] 1 cap PO DAILY 02/12/18 [History] Multivit-Min/FA/Lycopene/Lut [Centrum Silver Tablet] 1 each PO DAILY 02/12/18 [ History] Vit A/Vit C/Vit E/Zinc/Copper [Preservision] 2 each PO DAILY 02/12/18 [History] oxyCODONE 5 tab PO ASDIRECTED PRN 02/12/18 [History] - CURRENT (IN HOUSE) MEDS Current Meds: Current Medications Hydrocodone Bitart/Acetaminophen ([place] 325-5 Mg) 1 tab PO Q4H PRN PRN Reason: Pain Last Admin: 02/13/18 03:34 Dose: 1 tab Bupropion HCl (Wellbutrin Xl) 150 mg PO DAILY [facility] Cholecalciferol (Vitamin D3) 1,000 units PO DAILY [facility] Gentamicin Sulfate (Pharmacy To Dose - Gentamicin) 1 dose .XX ASDIRECTED [facility] Lactated Ringer's (Ringers, Lactated) 1,000 mls @ 100 mls/hr IV ASDIRECTED ROSLYN Last Admin: 02/12/18 23:35 Dose: 100 mls/hr Ciprofloxacin/Dextrose 400 mg/ (Premix) 200 mls @ 200 mls/hr IV Q12H ROSLYN Last Admin: 02/12/18 23:40 Dose: 200 mls/hr Levothyroxine Sodium (Levothyroxine) 112 mcg PO ACBREAKFAST [facility] Ondansetron HCl (Zofran) 4 mg PO Q4H PRN PRN Reason: Nausea/Vomiting Petrolatum (Aquaphor With Natural Healing) 1 gm TOP ASDIRECTED PRN PRN Reason: DRY SKIN Potassium Chloride (Klor-Con M20) 20 meq PO DAILY [facility] Pravastatin Sodium (Pravachol) 20 mg PO DAILY [facility] Sertraline HCl (Zoloft) 100 mg PO DAILY [facility] Spironolactone (Aldactone) 25 mg PO DAILY [facility] Discontinued Medications Dexamethasone (Dexamethasone) Confirm Administered Dose 20 mg .ROUTE .STK-MED ONE Stop: 02/13/18 07:19 Fentanyl (Sublimaze) Confirm Administered Dose 100 mcg .ROUTE .STK-MED ONE Stop: 02/13/18 07:19 Hydromorphone HCl (Dilaudid) 1 mg IVPUSH ONETIME ONE Stop: 02/12/18 20:45 Last Admin: 02/12/18 20:54 Dose: 1 mg Sodium Chloride (Normal Saline) 1,000 mls @ 999 mls/hr IV STAT ONE Stop: 02/12/18 19:25 Last Admin: 02/12/18 18:57 Dose: 200 mls/hr Ceftriaxone Sodium/Dextrose 1 (gm/ Premix) 50 mls @ 100 mls/hr IV ONETIME ONE Stop: 02/12/18 20:48 Last Admin: 02/12/18 21:21 Dose: 100 mls/hr Gentamicin Sulfate 360 mg/ (Sodium Chloride) 109 mls @ 218 mls/hr IV ONETIME ONE Stop: 02/12/18 21:29 Last Admin: 02/12/18 22:09 Dose: 218 mls/hr Ciprofloxacin/Dextrose 400 mg/ (Premix) 200 mls @ 200 mls/hr IV ONCALL ONE Stop: 02/12/18 23:42 Lidocaine HCl (Xylocaine-Mpf 1%) Confirm Administered Dose 5 mls @ as directed .ROUTE .STK-MED ONE Stop: 02/13/18 07:19 Influenza Virus Vaccine (Pharmacy To Dose - Influenza Vaccine) 1 each IM ONETIME ONE Stop: 02/12/18 23:46 Iopamidol (Isovue-200 (41%)) Confirm Administered Dose 50 ml .ROUTE .STK-MED ONE Stop: 02/13/18 07:34 Midazolam HCl (Versed 1 Mg/Ml) Confirm Administered Dose 2 mg .ROUTE .STK-MED ONE Stop: 02/13/18 07:18 Morphine Sulfate (Morphine) 2 mg IVPUSH ONETIME ONE Stop: 02/12/18 19:14 Last Admin: 02/12/18 19:28 Dose: 2 mg Ondansetron HCl (Zofran) 4 mg IVPUSH ONETIME ONE Stop: 02/12/18 18:19 Last Admin: 02/12/18 18:36 Dose: 4 mg Ondansetron HCl (Zofran) 4 mg IVPUSH ONETIME ONE Stop: 02/12/18 19:02 Last Admin: 02/12/18 19:09 Dose: 4 mg Ondansetron HCl (Zofran) Confirm Administered Dose 4 mg .ROUTE .STK-MED ONE Stop: 02/13/18 07:19 Promethazine HCl (Phenergan) 25 mg IM ONETIME ONE Stop: 02/12/18 19:44 Last Admin: 02/12/18 19:48 Dose: 25 mg Propofol (Diprivan 20 Ml) Confirm Administered Dose 200 mg .ROUTE .K-MED ONE Stop: 02/13/18 07:22
[2018-02-13] MEDS: Levothyroxine 112 MCG Tab PO SCH (08:10)
[2018-02-13] MEDS: Spironolactone 25 MG Tab PO SCH (08:10)
[2018-02-13] MEDS: buPROPion 150 MG Tab.ER PO SCH (08:11)
[2018-02-13] MEDS: Potassium Chloride 20 MEQ Tab.ER PO SCH (08:11)
[2018-02-13] MEDS: Cholecalciferol (Vitamin D3) 1,000 Unit Tab PO SCH (08:11)
[2018-02-13] MEDS: Sertraline 100 MG Tab PO SCH (08:11)
[2018-02-13] MEDS: Pravastatin 40 MG Tab PO SCH (08:11)
[2018-02-13] MEDS ORDERED: Phenylephrine/Normal Saline 100 MCG/ML 10 ML Syringe ONE (08:30)
[2018-02-13] MEDS ORDERED: Ciprofloxacin in D5W 200 ML ONE (08:30)
[2018-02-13] MEDS ORDERED: Neostigmine Methylsulfate 1 MG/ML 5 ML Syringe ONE (08:58)
[2018-02-13] MEDS ORDERED: Glycopyrrolate 0.2 MG/ML SDV ONE (08:58)
--- NOTE | 2018-02-13 09:47 | OR ---
SURGEON: Refugio Brunner M.D. DATE OF PROCEDURE: 02/13/2018 PREOPERATIVE DIAGNOSES: 1. A 7 mm right upper ureteral stone with obstruction. 2. Urinary tract infection. POSTOPERATIVE DIAGNOSES: 1. A 7 mm right upper ureteral stone with obstruction. 2. Urinary tract infection. OPERATION PERFORMED: Cystoscopy and double-J stent placement. DESCRIPTION OF PROCEDURE: The patient was given general anesthesia, placed in dorsolithotomy position, prepped and draped in sterile drapes. Cystourethroscopy was done. Showed a picture most consistent with acute bacterial cystitis. The right ureteral orifice was cannulated with a guidewire all the way up to the stone. Could not pass by the stone alongside the guidewire. A Glidewire was then advanced, which went around the stone all the way into the renal pelvis. The guidewire was then advanced into the renal pelvis. The Glidewire was removed, and a 6-Nepali 26 cm double-J stent was advanced over the guidewire. The material that came in was purulent, and it was with a hydronephrotic drip. The bladder was emptied, and the patient was moved to recovery room in good condition. ADINA / JARED /[id number]
--- NOTE | 2018-02-13 10:17 | PCM.POSTAN ---
POST ANESTHESIA ASSESSMENT - MENTAL STATUS Mental Status: Alert, Oriented - RESPIRATORY Respiratory Status: Respiratory Rate WNL, Airway Patent, O2 Saturation Stable - CARDIOVASCULAR CV Status: Pulse Rate WNL, Blood Pressure Stable - GASTROINTESTINAL GI Status: No Symptoms - POST OP HYDRATION Hydration Status: Adequate & Stable
--- NOTE | 2018-02-13 10:48 | CT ---
EXAM DATE: 02/12/18 PATIENT'S AGE: 72 Patient: SUSY BIRD Facility: [place], [place] Site . Site : 1945 Study: CT Abdomen/Pelvis w/o cont. [id number] 7:21:37 PM Ordering Physician: Doctor Lopez Final Report: INDICATION: Bilateral flank pain, nausea and vomiting TECHNIQUE: CT abdomen and pelvis without contrast. COMPARISON: None FINDINGS: Lower chest: Unremarkable. Liver: Unremarkable. Spleen: Unremarkable. Pancreas: Unremarkable. Gallbladder and bile ducts: The gallbladder is absent. Kidneys: 9 millimeter obstructing calculus proximal right ureter with moderate hydronephrosis. Small nonobstructing calculi inferior pole right kidney. Left renal atrophy with punctate nonobstructing renal calculi. Adrenal glands: Unremarkable. GI tract: Unremarkable. Appendix is normal. Vascular structures: Unremarkable. Lymph nodes: Unremarkable. Miscellaneous: Prevertebral soft tissue thickening. No free air or significant free fluid. Pelvic Organs: Unremarkable. Bones: Posterior spinal fixation hardware L2-L3. IMPRESSION: 9 millimeter obstructing calculus proximal right ureter with moderate hydronephrosis. Small nonobstructing calculi inferior pole right kidney. Left renal atrophy with punctate nonobstructing renal calculi. Dictated by Jermaine Wen MD @ 02/12/2018 7:39:56 PM Please note that all CT scans at this facility use dose modulation, iterative reconstruction, and/or weight-based dosing when appropriate to reduce radiation dose to as low as reasonably achievable. Dictated by: Jermaine Wen MD @ 02/12/2018 19:40:00 (Electronic Signature) Report Signed by Proxy. [facility]ERN[facility]
[2018-02-13] MEDS: Ciprofloxacin in D5W 400 MG in Premix Bag 1 BAG IV SCH ×4 (10:50→23:28)
--- NOTE | 2018-02-13 13:05 | CR ---
EXAMINATION: Right ureteroscopy HISTORY: Stent placement COMPARISON: CT dated 02/12/2018 TECHNIQUE: 2 views FINDINGS/IMPRESSION: Selection of the right renal collecting system is noted with subsequent stent pl acement.
[2018-02-13] MEDS: Lactated Ringers 1,000 ML IV SCH (16:01)
[2018-02-14] MEDS: Lactated Ringers 1,000 ML IV SCH (02:39)
[2018-02-14] MEDS: Levothyroxine 112 MCG Tab PO SCH (06:35)
[2018-02-14 08:03] VITALS: BP 99/56
[2018-02-14] MEDS: Sertraline 100 MG Tab PO SCH (08:29)
[2018-02-14] MEDS: Potassium Chloride 20 MEQ Tab.ER PO SCH (08:29)
[2018-02-14] MEDS: buPROPion 150 MG Tab.ER PO SCH (08:30)
[2018-02-14] MEDS: Spironolactone 25 MG Tab PO SCH (08:30)
[2018-02-14] MEDS: Cholecalciferol (Vitamin D3) 1,000 Unit Tab PO SCH (08:30)
[2018-02-14] MEDS: Pravastatin 40 MG Tab PO SCH (08:32)
--- NOTE | 2018-02-14 10:39 | DISCH ---
DATE OF DISCHARGE: PRIMARY CARE PHYSICIAN: Ronnie PCP HOSPITAL COURSE: The patient is 72 years old. She was seen through the emergency room with sudden onset of right flank pain. UA was strongly suggestive of UTI. She was given Rocephin through the ER and that was maintained for another dose 24 hours later. She also was given tobramycin. She was then maintained on Cipro 400 mg IV q.12 hours. She was taken to the operating room the same day she presented, and cystoscopy with double-J stent placement were done. The picture was most consistent with acute bacterial cystitis in the bladder, and there was a hydronephrotic drip of purulent material out of the renal pelvis. Over the next 2 days, she did well, remained stable, and was sent home on Cipro 500 twice daily for the next 7 days. PLAN: I will see her in 1 week and arrange for her to have ESWL. ADINA COLEMAN /[id number]
[2018-02-14] MEDS ORDERED: WATER IV SCH ×2 (21:00)
[2018-02-14] MEDS ORDERED: DEXTROSE 5% IV SCH ×2 (21:00)
[2018-02-14] MEDS ORDERED: TOBRAMYCIN IV SCH ×2 (21:00)
== END 2018-02-14 11:00 | disposition home or self-care (01) ==
LOC: MW.ED 18:12 → MW.MS 22:24
PROVIDERS: ADMIT Urology; ATTEND Urology
DX: N13.2 Hydronephrosis with renal and ureteral calculous obstruction (principal); N30.00 Acute cystitis without hematuria; B96.20 Unspecified Escherichia coli [E. coli] as the cause of diseases classified elsewhere; N18.3 Chronic kidney disease, stage 3 (moderate); E11.42 Type 2 diabetes mellitus with diabetic polyneuropathy; E03.9 Hypothyroidism, unspecified; E78.00 Pure hypercholesterolemia, unspecified; F32.9 Major depressive disorder, single episode, unspecified; F41.9 Anxiety disorder, unspecified; L40.50 Arthropathic psoriasis, unspecified; K21.9 Gastro-esophageal reflux disease without esophagitis; G25.81 Restless legs syndrome; Z79.82 Long term (current) use of aspirin; Z79.899 Other long term (current) drug therapy; Z88.2 Allergy status to sulfonamides; Z88.8 Allergy status to other drugs, medicaments and biological substances; Z91.048 Other nonmedicinal substance allergy status
CPT/HCPCS: 36415; 52332; 74176; 76000; 80053; 80170; 81001; 82150; 82962; 83605; 83690; 85025; 87040; 87077; 87186; 93005; 96361; 96365; 96367; 96372; 96375; 96376; 99285; A9270; C1769; C2625; J0696; J0744; J1100; J1170; J1580; J2250; J2270; J2370; J2405; J2550; J2704; J3010; J3490; J7030; J7040; J7120; Q9966

== ENCOUNTER 2019-05-04 22:57 | Emergency (ER) | payer MEDICARE, OTHER ==
[2019-05-05] MEDS ORDERED: Ketorolac 15 MG/ML SDV IVPUSH PRN (00:15)
[2019-05-05] MEDS ORDERED: Ketorolac 30 MG/ML SDV IM ONE (00:16)
[2019-05-05 02:49] LABS: POTASSIUM,K 4.2 mmol/L (3.5-5.1)
[2019-05-05 03:32] VITALS: BP 141/75; PULSE 83
--- NOTE | 2019-05-05 03:43 | EDM.PDOC ---
ED HPI GENERAL MEDICAL PROBLEM - General Chief Complaint: Lower Extremity Injury/Pain Stated Complaint: LEFT LEG BLOOD CLOTH Time Seen by Provider: 05/05/19 00:14 Source of Information: Reports: Patient History Limitations: Reports: No Limitations - History of Present Illness Onset: Gradual Duration: Day(s):, Getting Worse Location: Reports: Neck, Chest, Back, Upper Extremity, Left, Upper Extremity, Right, Lower Extremity, Left Quality: Reports: Ache Severity: Moderate Improves with: Reports: None Worsens with: Reports: None Context: Reports: Activity Associated Symptoms: Reports: No Other Symptoms 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 Left Lower Leg Pain Score (Numeric/FACES): 10 - Related Data Allergies Allergy/AdvReac Type Severity Reaction Status Date / Time duloxetine Allergy Dizziness Verified 05/04/19 23:15 hydrochlorothiazide Allergy lowers Verified 05/04/19 23:15 [From Maxzide] potassium metformin Allergy Renal Verified 05/04/19 23:15 Failure Sulfa (Sulfonamide Allergy Hives Verified 05/04/19 23:15 Antibiotics) Thiazides Allergy lowers Verified 05/04/19 23:15 potassium triamterene [From Maxzide] Allergy Other Verified 05/04/19 23:15 Adhesive tape Allergy skin turns Uncoded 05/04/19 23:15 brown meclizine Allergy palpatation Uncoded 05/04/19 23:15 s Home Meds: Home Meds Furosemide [Lasix] 20 mg PO BID 02/02/14 [History] Potassium 10 meq PO BID 02/02/14 [History] Pravastatin [Pravachol] 20 mg PO DAILY 02/02/14 [History] Spironolactone [Aldactone] 25 mg PO DAILY 02/02/14 [History] traMADol [Ultram ER] 50 mg PO BID 02/02/14 [History] Krill/Om-3/DHA/EPA/Phospho/Ast [Krill Oil 1,000 mg Softgel] 1,000 mg PO BID [History] traZODone HCl [Trazodone HCl] 100 mg PO BEDTIME PRN 03/04/14 [History] Aspirin 81 mg PO DAILY 02/09/15 [History] Levothyroxine Sodium [Synthroid] 112 mcg PO QAM 11/28/16 [History] Omeprazole 20 mg PO ASDIRECTED PRN 11/28/16 [History] Sertraline HCl 100 mg PO QAM 11/28/16 [History] buPROPion HCl [Wellbutrin Xl] 150 mg PO DAILY 11/28/16 [History] Lactobacillus Acidophilus [Probiotic] 1 cap PO DAILY 02/12/18 [History] Multivit-Min/FA/Lycopen/Lutein [Centrum Silver Tablet] 1 each PO DAILY 02/12/18 [History] Vit A/Vit C/Vit E/Zinc/Copper [Preservision] 2 each PO DAILY 02/12/18 [History] Past Medical History HEENT History: Reports: Cataract, Other (See Below) Other HEENT History: wears glasses, has upper permanent dental bridge Cardiovascular History: Reports: Arrhythmia, High Cholesterol, [place], Other (See Below) Other Cardiovascular History: states has hx of palpitations and "leaky valve" Respiratory History: Reports: None Gastrointestinal History: Reports: Other (See Below) Other Gastrointestinal History: states had had a cough for 2 years- taking Omeprazole- but "it's not helping. 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: Musculoskeletal History: Reports: Osteoarthritis, Osteoporosis, RA, Other (See Below) Other Musculoskeletal History: hx of Psoriatic arthritis Neurological History: Reports: Concussion, Migraines Other Neuro History: no migraines recently Psychiatric History: Reports: Depression Endocrine/Metabolic History: Reports: Hypothyroidism, Other (See Below) Other Endocrine/Metabolic History: last Hgb A1c was 7.0 Hematologic History: Reports: Other (See Below) Other Hematologic History: "I bleed easily lately" Oncologic (Cancer) History: Reports: Other (See Below) Other Oncologic History: Colorectal Dermatologic History: Reports: Psoriasis, Other (See Below) Other Dermatologic History: has psoriasis on buttocks since radiation therapy - Infectious Disease History Infectious Disease History: Reports: Chicken Pox, Measles, Mumps - Past Surgical History Head Surgeries/Procedures: Reports: None HEENT Surgical History: Reports: Cataract Surgery, Tonsillectomy Other HEENT Surgeries/Procedures: lashell blepharoplasty GI Surgical History: Reports: Cholecystectomy, Colonoscopy Female Surgical History: Reports: Other (See Below) Other Female Surgeries/Procedures: removal of hemorrhagic ovarian cyst Neurological Surgical History: Reports: Other (See Below) Other Neurological Surgeries/Procedures: had a "cage" put in her back Musculoskeletal Surgical History: Reports: Knee Replacement, Shoulder Surgery, Other (See Below) Other Musculoskeletal Surgeries/Procedures:: bilateral TKA, hx of right RTCR, hc of removal of bilateral great toenails Other Oncologic Surgeries/Procedures: had Chemo and radiation therapy Social & Family History - Family History Family Medical History: Noncontributory - Tobacco Use Smoking Status *Q: Never Smoker Second Hand Smoke Exposure: No - Caffeine Use Caffeine Use: Reports: Coffee - Recreational Drug Use Recreational Drug Use: No Review of Systems - Review of Systems Review Of Systems: See Below Constitutional: Reports: No Symptoms Eyes: Reports: No Symptoms Ears: Reports: No Symptoms Nose: Reports: No Symptoms Mouth/Throat: Reports: No Symptoms Respiratory: Reports: No Symptoms Cardiovascular: Reports: No Symptoms GI/Abdominal: Reports: No Symptoms Genitourinary: Reports: No Symptoms Musculoskeletal: Reports: Neck Pain, Shoulder Pain, Arm Pain, Leg Pain, Foot Pain, Joint Pain, Muscle Stiffness Skin: Reports: No Symptoms Neurological: Reports: No Symptoms Psychiatric: Reports: No Symptoms ED EXAM, GENERAL - Physical Exam Exam: See Below Exam Limited By: No Limitations General Appearance: Alert, WD/WN, No Apparent Distress Eye Exam: Bilateral Eye: PERRL Ears: Normal External Exam, Normal Canal, Hearing Grossly Normal, Normal TMs, Hearing Loss Ear Exam: Bilateral Ear: Auricle Normal, Canal Normal Nose: Normal Inspection, Normal Mucosa Throat/Mouth: Normal Inspection, Normal Lips, Normal Teeth, Normal Gums, Normal Oropharynx, Normal Voice, No Airway Compromise Head: Atraumatic, Normocephalic Neck: Normal Inspection, Supple, Non-Tender, Full Range of Motion Respiratory/Chest: No Respiratory Distress, Lungs Clear, Normal Breath Sounds, No Accessory Muscle Use, Chest Non-Tender Cardiovascular: Normal Peripheral Pulses, Regular Rate, Rhythm, No Edema, No JVD , No Murmur, No Rub GI/Abdominal: Normal Bowel Sounds, Soft, Non-Tender, No Organomegaly (Female) Exam: Deferred. No: Normal External Exam Rectal (Female) Exam: Deferred Back Exam: CVA Tenderness (L), Decreased Range of Motion, Paraspinal Tenderness , Vertebral Tenderness Extremities: Normal Inspection, Normal Range of Motion, No Pedal Edema, Leg Pain Neurological: Alert, Oriented, CN II-XII Intact, Normal Cognition Psychiatric: Normal Affect, Normal Mood Skin Exam: Warm, Dry, Intact Course - Vital Signs Last Recorded V/S: Last Vital Signs Temp 96.8 F 05/05/19 03:31 Pulse 83 05/05/19 03:31 Resp 14 05/05/19 03:31 BP 141/75 H 05/05/19 03:31 Pulse Ox 93 L 05/05/19 03:31 - Orders/Labs/Meds Orders: Active Orders 24 hr Category Date Time Status CULTURE URINE [RM] Stat Lab 05/05/19 00:45 Received Labs: Laboratory Tests 05/05/19 05/05/19 05/05/19 Range/Units 00:45 02:25 02:25 WBC 6.86 (4.0-11.0) K/uL RBC 5.09 (4.30-5.90) M/uL Hgb 15.2 (12.0-16.0) g/dL Hct 43.2 (36.0-46.0) % MCV 84.9 (80.0-98.0) fL MCH 29.9 (27.0-32.0) pg MCHC 35.2 (31.0-37.0) g/dL RDW Std Deviation 43.1 (28.0-62.0) fl RDW Coeff of Kelley 14 (11.0-15.0) % Plt Count 114 L (150-400) K/uL MPV 12.50 H (7.40-12.00) fL Neut % (Auto) 44.2 L (48.0-80.0) % Lymph % (Auto) 41.0 H (16.0-40.0) % [place] % (Auto) 10.3 (0.0-15.0) % Eos % (Auto) 3.9 (0.0-7.0) % Baso % (Auto) 0.6 (0.0-1.5) % Neut # (Auto) 3.0 (1.4-5.7) K/uL Lymph # (Auto) 2.8 H (0.6-2.4) K/uL [place] # (Auto) 0.7 (0.0-0.8) K/uL Eos # (Auto) 0.3 (0.0-0.7) K/uL Baso # (Auto) 0.0 (0.0-0.1) K/uL Sodium 139 (136-145) mmol/L Potassium 4.2 (3.5-5.1) mmol/L Chloride 99 (98-107) mmol/L Carbon Dioxide 32.0 (21.0-32.0) mmol/L BUN 19 H (7.0-18.0) mg/dL Creatinine 1.3 H (0.6-1.0) mg/dL Est Cr Clr Drug Dosing 39.46 mL/min Estimated GFR (MDRD) 40.3 ml/min Glucose 157 H (74-106) mg/dL Calcium 9.2 (8.5-10.1) mg/dL Total Bilirubin 0.6 (0.2-1.0) mg/dL AST 40 H (15-37) IU/L ALT 41 (14-63) IU/L Alkaline Phosphatase 149 H (46-116) U/L Total Protein 8.2 (6.4-8.2) g/dL Albumin 3.5 (3.4-5.0) g/dL Globulin 4.7 H (2.6-4.0) g/dL Albumin/Globulin Ratio 0.7 L (0.9-1.6) Urine Color YELLOW Urine Appearance SLT CLOUDY Urine pH 6.5 (5.0-8.0) Ur Specific [place] 1.010 (1.001-1.035) Urine Protein NEGATIVE (NEGATIVE) mg/dL Urine Glucose (UA) NEGATIVE (NEGATIVE) mg/dL Urine Ketones NEGATIVE (NEGATIVE) mg/dL Urine Occult Blood TRACE-INTACT H (NEGATIVE) Urine Nitrite NEGATIVE (NEGATIVE) Urine Bilirubin NEGATIVE (NEGATIVE) Urine Urobilinogen 0.2 (<2.0) EU/dL Ur Leukocyte Esterase TRACE H (NEGATIVE) Urine RBC 0-2 (0-2/HPF) Urine WBC 1-4 (0-5/HPF) Ur Epithelial Cells RARE (NONE-FEW) Urine Bacteria RARE (NEGATIVE) Meds: Medications Discontinued Medications Generic Name Dose Route Start Last Admin Trade Name Freq PRN Reason Stop Dose Admin Ketorolac Tromethamine 30 mg 05/05/19 00:16 05/05/19 01:04 Toradol IM 05/05/19 00:17 30 mg ONETIME ONE Administration Departure - Departure Time of Disposition: 03:42 Disposition: Home, Self-Care 01 Condition: Good Clinical Impression: Osteoarth NOS-other site - Discharge Information Referrals: Joey White MD [Primary Care Provider] - Additional Instructions: The following information is given to patients seen in the emergency department who are being discharged to home. This information is to outline your options for follow-up care. We provide all patients seen in our emergency department with a follow-up referral. The need for follow-up, as well as the timing and circumstances, are variable depending upon the specifics of your emergency department visit. If you don't have a primary care physician on staff, we will provide you with a referral. We always advise you to contact your personal physician following an emergency department visit to inform them of the circumstance of the visit and for follow-up with them and/or the need for any referrals to a consulting specialist. The emergency department will also refer you to a specialist when appropriate. This referral assures that you have the opportunity for followup care with a specialist. All of these measure are taken in an effort to provide you with optimal care, which includes your followup. Under all circumstances we always encourage you to contact your private physician who remains a resource for coordinating your care. When calling for followup care, please make the office aware that this follow-up is from your recent emergency room visit. If for any reason you are refused follow-up, please contact the [facility] emergency department at and ask to speak to the emergency department charge nurse. Sepsis Event Note - Evaluation Sepsis Screening Result: No Definite Risk - Focused Exam Vital Signs: Vital Signs Temp Pulse Resp BP Pulse Ox 05/05/19 03:31 96.8 F 83 14 141/75 H 93 L 05/04/19 23:11 98.5 F 96 20 152/88 H 93 L Date Exam was Performed: 05/05/19 Time Exam was Performed: 03:39 - My Orders Last 24 Hours: My Active Orders 05/05/19 00:45 CULTURE URINE [RM] Stat - Assessment/Plan Last 24 Hours: My Active Orders 05/05/19 00:45 CULTURE URINE [RM] Stat
== END 2019-05-05 03:50 | disposition home or self-care (01) ==
LOC: MW.ED 22:57
DX: M19.90 Unspecified osteoarthritis, unspecified site (principal); M79.662 Pain in left lower leg; F32.9 Major depressive disorder, single episode, unspecified; I25.2 Old myocardial infarction; E78.00 Pure hypercholesterolemia, unspecified; E03.9 Hypothyroidism, unspecified; Z79.82 Long term (current) use of aspirin; Z79.890 Hormone replacement therapy; Z79.899 Other long term (current) drug therapy; Z88.2 Allergy status to sulfonamides; Z88.8 Allergy status to other drugs, medicaments and biological substances; Z91.048 Other nonmedicinal substance allergy status
CPT/HCPCS: 36415; 80053; 81001; 85025; 87086; 96372; 99283; J1885

== ENCOUNTER 2020-12-23 06:50 | Day surgery (SDC) | payer MEDICARE, OTHER ==
[~2020-12-23 06:50] MED LIST changes: +Sodium Chloride 0.9% 10 ML SDV IV PRN; +Sodium Chloride 0.9% 10 ML Syringe FLUSH PRN; +Sodium Chloride 0.9% 2.5 ML Syringe FLUSH PRN
[2020-12-23] MEDS ORDERED: propofoL 50 ML ONE (07:08)
[2020-12-23] MEDS ORDERED: fentaNYL 100 MCG/2 ML SDV ONE (07:17)
--- NOTE | 2020-12-23 07:37 | PCM.PREANE ---
Preanesthetic Assessment - Procedure Proposed Procedure: Colonoscopy - Anesthesia/Transfusion/Family Hx Anesthesia History: Prior Anesthesia Without Reaction Other Type of Anesthesia Reaction Comment: Denies any known problem in pst, G- Daughter w leukemia had problems Transfusion History: No Prior Transfusion(s) Intubation History: Unknown - Review of Systems General: No Symptoms Pulmonary: No Symptoms Cardiovascular: No Symptoms (h/o Q wave AK) Gastrointestinal: No Symptoms (h/o Polyps) Neurological: Difficulty Walking (Weakness on L side without h/o stroke) Other: Reports: Diabetes (NIDDM, takes trulicity), Liver Problems (fatty), Thyroid Problems (hypo) - Physical Assessment NPO Status Date: 12/21/20 NPO Status Time: 16:00 Vital Signs: Last Vital Signs Temp 96.4 F L 12/23/20 07:00 Pulse 91 12/23/20 07:00 Resp 16 12/23/20 07:00 BP 128/73 12/23/20 07:00 Pulse Ox 94 L 12/23/20 07:00 Height: 5 ft 8 in Weight: 90.718 kg ASA Class: 3 Mental Status: Alert & Oriented x3 Dentition: Reports: Implants Thyro-Mental Finger Breadths: 3 Mouth Opening Finger Breadths: 3 ROM/Head Extension: Full Lungs: Clear to Auscultation, Normal Respiratory Effort Cardiovascular: Regular Rate, Regular Rhythm - Allergies Allergies/Adverse Reactions: Allergies Allergy/AdvReac Type Severity Reaction Status Date / Time bupropion Allergy Tremors Verified 12/17/20 15:30 duloxetine Allergy Dizziness Verified 12/17/20 15:30 gabapentin Allergy Other Verified 12/17/20 15:30 hydrochlorothiazide Allergy lowers Verified 05/04/19 23:15 [From Maxzide] potassium metformin Allergy Renal Verified 12/17/20 15:30 Failure metoprolol Allergy Other Verified 12/17/20 15:30 Sulfa (Sulfonamide Allergy Hives Verified 12/17/20 15:30 Antibiotics) Thiazides Allergy lowers Verified 12/17/20 15:30 potassium triamterene [From Maxzide] Allergy Other Verified 12/17/20 15:30 meclizine Allergy palpatation Uncoded 12/17/20 15:30 s - Acknowledgements Anesthesia Type Planned: General Anesthesia Pt an Appropriate Candidate for the Planned Anesthesia: Yes Alternatives and Risks of Anesthesia Discussed w Pt/Guardian: Yes Pt/Guardian Understands and Agrees with Anesthesia Plan: Yes PreAnesthesia Questionnaire HEENT History: Reports: Cataract, Other (See Below) Other HEENT History: wears glasses Cardiovascular History: Reports: Arrhythmia, High Cholesterol, AK, Other (See Below) Other Cardiovascular History: was told she had a previous AK per EKG- no symptoms, was told by 2 Doctors she had a Mitral Valve Prolapse and by 2 Doctors that she did not, was hypertensive before chemotherapy- not since Respiratory History: Reports: None Gastrointestinal History: Reports: Colon Polyp, GERD Genitourinary History: Reports: Renal Calculus, UTI, Recurrent, Other (See Below) Other Genitourinary History: left renal atrophy, 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: Musculoskeletal History: Reports: Osteoarthritis, Osteoporosis, RA, Other (See Below) Other Musculoskeletal History: hx of Psoriatic arthritis, currently has open areas on buttocks from sitting Neurological History: Reports: Concussion, Migraines, Neuropathy, Peripheral Other Neuro History: no migraines recently, states left leg is " to the knee" Psychiatric History: Reports: Depression Endocrine/Metabolic History: Reports: Diabetes, Type II, Hypothyroidism Hematologic History: Reports: None Immunologic History: Reports: None Oncologic (Cancer) History: Reports: Other (See Below) Other Oncologic History: Colorectal Dermatologic History: Reports: Psoriasis, Other (See Below) Other Dermatologic History: open areas on buttocks - Infectious Disease History Infectious Disease History: Reports: Chicken Pox, Measles, Mumps - Past Surgical History Head Surgeries/Procedures: Reports: None HEENT Surgical History: Reports: Cataract Surgery, Oral Surgery, Tonsillectomy Other HEENT Surgeries/Procedures: lashell blepharoplasty, has 6 dental implants Cardiovascular Surgical History: Reports: None Respiratory Surgical History: Reports: None GI Surgical History: Reports: Cholecystectomy, Colonoscopy, EGD Female Surgical History: Reports: D&C, Other (See Below) Other Female Surgeries/Procedures: removal of hemorrhagic ovarian cyst Endocrine Surgical History: Reports: None Neurological Surgical History: Reports: Lumbar Spine, Other (See Below) Other Neurological Surgeries/Procedures: had a "cage" put in her back Musculoskeletal Surgical History: Reports: Knee Replacement, Shoulder Surgery, Other (See Below) Other Musculoskeletal Surgeries/Procedures:: bilateral TKA, hx of right RTCR, hc of removal of bilateral great toenails, hx of tendon transfer both thumbs Other Oncologic Surgeries/Procedures: had Chemo and radiation therapy - SUBSTANCE USE Tobacco Use Status *Q: Never Tobacco User Recreational Drug Use History: No - HOME MEDS Home Medications: Home Meds Furosemide [Lasix] 40 mg PO QPM 02/02/14 [History] Potassium 20 meq PO BID 02/02/14 [History] Spironolactone [Aldactone] 25 mg PO QAM 02/02/14 [History] traZODone HCl [Trazodone HCl] 100 mg PO BEDTIME PRN 03/04/14 [History] Levothyroxine Sodium [Synthroid] 112 mcg PO BEDTIME 11/28/16 [History] Sertraline HCl 100 mg PO QPM 11/28/16 [History] Alendronate [Fosamax] 70 mg PO WEEKLY 12/17/20 [History] Diclofenac Sodium [Voltaren Arthritis Pain] 2 - 4 gm TOP QID PRN 12/17/20 [History] Dulaglutide [Trulicity] 0.75 mg SQ WEEKLY 12/17/20 [History] Emollient Combination No.10 [Pedro Cream] 1 dose TOP ASDIRECTED PRN 12/17/20 [History] Hydrocodone/Acetaminophen [HYDROcodone-Acetaminophen 5-325 MG] 1 tab PO ASDIRECTED PRN 12/17/20 [History] InFLIXimab-DYYB [Inflectra] 100 mg IV WEEKLY 12/17/20 [History] Lidocaine 2.5%, Prilocaine 2.5 1 dose TOP TID PRN 12/17/20 [History] Mirabegron [Myrbetriq] 25 mg PO QAM 12/17/20 [History] Nystatin 1 dose TOP BID PRN 12/17/20 [History] Ondansetron [Zofran Odt] 8 mg SL ASDIRECTED PRN 12/17/20 [History] atorvaSTATin Calcium [Atorvastatin Calcium] 10 mg PO QAM 12/17/20 [History] - CURRENT (IN HOUSE) MEDS Current Meds: Current Medications Lactated Ringer's (Ringers, Lactated) 1,000 mls @ 125 mls/hr IV ASDIRECTED ROSLYN Last Admin: 12/23/20 07:28 Dose: 125 mls/hr Documented by: Sodium Chloride (Sodium Chloride 0.9% 10 Ml Syringe) 10 ml FLUSH ASDIRECTED PRN PRN Reason: Keep Vein Open Sodium Chloride (Sodium Chloride 0.9% 2.5 Ml Syringe) 2.5 ml FLUSH ASDIRECTED PRN PRN Reason: Keep Vein Open Sodium Chloride (Sodium Chloride 0.9% 10 Ml Syringe) 10 ml FLUSH ASDIRECTED PRN PRN Reason: Keep Vein Open Sodium Chloride (Sodium Chloride 0.9% 2.5 Ml Syringe) 2.5 ml FLUSH ASDIRECTED PRN PRN Reason: Keep Vein Open Sodium Chloride (Sodium Chloride 0.9% 10 Ml Sdv) 10 ml IV ASDIRECTED PRN PRN Reason: IV Use Discontinued Medications Fentanyl (Fentanyl 100 Mcg/2 Ml Sdv) Confirm Administered Dose 100 mcg .ROUTE .STK-MED ONE Stop: 12/23/20 07:18 Propofol (Diprivan 50 Ml) Confirm Administered Dose 50 mls @ as directed .ROUTE .STK-MED ONE Stop: 12/23/20 07:09 Lidocaine HCl (Lidocaine 1% 5 Ml Sdv) Confirm Administered Dose 5 ml .ROUTE .STK-MED ONE Stop: 12/23/20 07:18
[2020-12-23] MEDS ORDERED: Propofol 200 MG/20 ML SDV ONE (08:46)
--- NOTE | 2020-12-23 09:04 | PCM.POSTAN ---
POST ANESTHESIA ASSESSMENT - MENTAL STATUS Mental Status: Somnolent - VITAL SIGNS Vital Signs: Last Vital Signs Temp 96.4 F L 12/23/20 07:00 Pulse 91 12/23/20 07:00 Resp 16 12/23/20 07:00 BP 128/73 12/23/20 07:00 Pulse Ox 94 L 12/23/20 07:00 - RESPIRATORY Respiratory Status: Respiratory Rate WNL, Airway Patent, O2 Saturation Stable - CARDIOVASCULAR CV Status: Pulse Rate WNL, Blood Pressure Stable - GASTROINTESTINAL GI Status: No Symptoms - PAIN Free Text/Narrative:: resting comfortably - POST OP HYDRATION Hydration Status: Adequate & Stable
--- NOTE | 2020-12-23 09:11 | PCM.OPNOTE ---
- General Post-Op/Procedure Note Date of Surgery/Procedure: 12/23/20 Operative Procedure(s): Screening colonoscopy Findings: Random biopsies of cecum, ascending, transverse, sigmoid colon, rectum. Transverse colon polyp Pre Op Diagnosis: History of anal cancer, Family history of colon cancer Post-Op Diagnosis: Transverse colon polyp Anesthesia Technique: MAC Primary Surgeon: Radha Main Condition: Good
[2020-12-23 09:30] VITALS: BP 126/58; PULSE 78
--- NOTE | 2020-12-23 09:33 | PCM48HPAN ---
Post Anesthesia Note - EVALUATION WITHIN 48HRS OF ANESTHETIC Vital Signs in Normal Range: Yes Patient Participated in Evaluation: Yes Respiratory Function Stable: Yes Airway Patent: Yes Cardiovascular Function Stable: Yes Hydration Status Stable: Yes Pain Control Satisfactory: Yes Nausea and Vomiting Control Satisfactory: Yes Mental Status Recovered: Yes Vital Signs: Last Vital Signs Temp 97.3 F 12/23/20 09:23 Pulse 78 12/23/20 09:23 Resp 14 12/23/20 09:23 BP 126/58 L 12/23/20 09:23 Pulse Ox 95 12/23/20 09:23 - COMMENTS/OBSERVATIONS Free Text/Narrative:: Pt doing well post-op. VSS. No apparent anesthetic complications. Dr. Howie Taylor
--- NOTE | 2020-12-23 20:12 | OR ---
SURGEON: RADHA MAIN MD DATE OF PROCEDURE: 12/23/2020 PREOPERATIVE DIAGNOSES: 1. Family history of colon cancer. 2. Personal history of anal cancer. POSTOPERATIVE DIAGNOSES: 1. Transverse colon polyp. 2. Excoriated perianal skin. PROCEDURES PERFORMED: Diagnostic colonoscopy with polypectomy and biopsies. PRIMARY SURGEON: Radha Main MD ANESTHESIA: MAC. INSTRUMENT USED: Olympus colonoscope. EXTENT OF THE EXAMINATION: To the cecum. PREPARATION: Good. LIMITATIONS: None. INDICATIONS: The patient is a 75-year-old female, who presents for a repeat colonoscopy. She has a history of anal cancer and has a very strong family history of colon cancer. I explained the need for a diagnostic colonoscopy. We did discuss the procedure, the expected perioperative course, and the risks. She verbalized understanding and wishes to proceed. PROCEDURE IN DETAIL: The patient was brought in the endoscopy suite and placed in the left lateral decubitus position. A time-out was completed, verifying the patient's name, age, date of , allergies, and procedure to be performed. Monitored anesthesia care was induced, and continuous oxygen was provided via a face mask throughout the procedure. After adequate sedation was achieved, a digital rectal exam was performed. The patient had excoriated red skin around the gluteal crease as well as on the anoderm. She does have a history of radiation. There appeared to be some inflammation as well within the anal canal. A well- lubricated colonoscope was inserted in the rectum and advanced under direct visualization carefully to the cecum. The cecum was identified by both visual and anatomic landmarks. A photograph was taken of the cecal cap; however, I was unable to retroflex the scope within the cecum due to looping of the scope more proximally. The scope was then fully withdrawn while examining the color, texture, anatomy, and integrity of the mucosa from the cecum to the anal canal. To rule out any signs of underlying colitis, random biopsies were taken of the cecum, ascending colon, transverse colon, and sigmoid colon and in the rectum. There was some bleeding noted at the transverse colon biopsy. A small amount of pressure was placed over this using the scope, and the bleeding stopped. I carefully inspected the area before moving forward and ensured that hemostasis had been achieved over the course of several minutes. The patient had a small transverse colon polyp in the distal transverse colon. This was removed in a piecemeal fashion using a cold biopsy forceps. It was then sent to Pathology labeled as transverse colon polyp. The scope was brought into the rectum, and I attempted to retroflex it within the rectum, but the rectum itself was stiff and nonmobile. To avoid any damage to the surrounding structures, I made no further attempts at retroflexing the scope. Multiple photographs were taken as I slowly removed the scope from the rectum through the anal canal. Again, the hemorrhoidal tissue appeared irritated, but there was no evidence of acute bleeding or any abnormal-appearing tissue. The scope was removed and the procedure terminated. The cecum to anus time was 7 minutes. The patient tolerated the procedure well and was transferred to the PACU in stable condition. ENDOSCOPIC DIAGNOSES: 1. Transverse colon polyp. 2. Excoriated perianal skin. RECOMMENDATIONS: At the end of the case, a barrier cream was applied to the excoriated-appearing tissues on the gluteal fold and anoderm. I visited with the patient in the postoperative area. I encouraged her to use this cream b.i.d. We will follow up with the patient in clinic in 2 weeks. BRUNO COLEMAN /[id number]
== END 2020-12-23 10:05 | disposition home or self-care (01) ==
LOC: MW.SDS 06:50
PROVIDERS: ATTEND Surgery
DX: Z12.11 Encounter for screening for malignant neoplasm of colon (principal); C21.0 Malignant neoplasm of anus, unspecified; F51.04 Psychophysiologic insomnia; G89.29 Other chronic pain; I12.9 Hypertensive chronic kidney disease with stage 1 through stage 4 chronic kidney disease, or unspecified chronic kidney disease; E78.00 Pure hypercholesterolemia, unspecified; E03.9 Hypothyroidism, unspecified; N18.9 Chronic kidney disease, unspecified; G62.9 Polyneuropathy, unspecified; M06.9 Rheumatoid arthritis, unspecified; E11.42 Type 2 diabetes mellitus with diabetic polyneuropathy; E11.22 Type 2 diabetes mellitus with diabetic chronic kidney disease; Z88.8 Allergy status to other drugs, medicaments and biological substances; Z88.2 Allergy status to sulfonamides; Z79.899 Other long term (current) drug therapy; Z79.890 Hormone replacement therapy; Z90.49 Acquired absence of other specified parts of digestive tract; Z98.890 Other specified postprocedural states
CPT/HCPCS: 45380; J2704; J3010; J7120; 00811; 99100

== ENCOUNTER 2021-03-17 13:04 | Emergency (ER) | payer MEDICARE, OTHER ==
[2021-03-17] MEDS ORDERED: Sodium Chloride 0.9% 2.5 ML Syringe FLUSH PRN (13:51)
[2021-03-17] MEDS ORDERED: Sodium Chloride 0.9% 10 ML Syringe FLUSH PRN (13:51)
--- NOTE | 2021-03-17 13:54 | EDM.PDOC ---
ED HPI GENERAL MEDICAL PROBLEM - General Chief Complaint: Abdominal Pain Stated Complaint: RT STOMACH PAIN Time Seen by Provider: 03/17/21 13:29 - History of Present Illness INITIAL COMMENTS - FREE TEXT/NARRATIVE: History of present illness: [] Patient's been sick since 13 March. She has a cough. She coughs up phlegm. She chokes on liquids it comes up as though it is reflux from her stomach during the night. One time she was choking and her had trouble waking her up. Along with a cough comes a pleuritic pain in the right flank and right lower chest wall. It is worse when she moves and breathes. Patient is weak. She has a headache. She has muscle aches. She had a temperature of 100.4 yesterday. She feels fevers. She is vaccinated for COVID-19, pneumococcus, varicella. This patient was seen and evaluated during the 2019 SARS-CoV-2 novel coronavirus pandemic period. Community viral transmission is ongoing at time of this encounter and the emergency department is operating under pandemic response procedures. Review of systems: As per history of present illness and below otherwise all systems reviewed and negative. Past medical history: As per history of present illness and as reviewed below otherwise noncontributory. Surgical history: As per history of present illness and as reviewed below otherwise noncontributory. Social history: No reported history of drug or alcohol abuse. Family history: As per history of present illness and as reviewed below otherwise noncontributory. Physical exam: Constitutional - well developed, well-nourished and in no acute distress HEENT - normocephalic, no evidence of trauma - external nose and mouth normal - no mass in neck and no JVD - mucosae moist EYES - full EOM, PERRL, no icterus - no evidence of inflammation, injection, or drainage Respiratory - no respiratory distress, equal bilateral expansion, lungs diminished breath sounds throughout without any isolated rales. Cardiovascular - Regular Rhythm with S1 and S2 appreciated and no murmur, gallop or rub. GI - abdomen soft without distension or organomegaly - normal bowel sounds - no guard or rebound Musculoskeletal no gross deformity of long bones or joints - no tenderness, swelling or edema Neurologic - Alert and oriented times four - CN II-XII grossly intact - motor sensory and coordination symmetrically normal Psychiatric - appropriate mood and affect with normal thought content Hematologic - No petechiae or purpura - mucosa appropriate color and sclera not pale - normal nail bed color and refill Integument - no rash or evidence of trauma - normal turgor Diagnostics: [] Therapeutics: [] Impression: [] Plan: [] Definitive disposition and diagnosis as appropriate pending reevaluation and review of above. right flank Pain Score (Numeric/FACES): 11 - Related Data Allergies Allergy/AdvReac Type Severity Reaction Status Date / Time bupropion Allergy Tremors Verified 12/17/20 15:30 duloxetine Allergy Dizziness Verified 12/17/20 15:30 gabapentin Allergy Other Verified 12/17/20 15:30 hydrochlorothiazide Allergy lowers Verified 05/04/19 23:15 [From Maxzide] potassium metformin Allergy Renal Verified 12/17/20 15:30 Failure metoprolol Allergy Other Verified 12/17/20 15:30 Sulfa (Sulfonamide Allergy Hives Verified 12/17/20 15:30 Antibiotics) Thiazides Allergy lowers Verified 12/17/20 15:30 potassium triamterene [From Maxzide] Allergy Other Verified 12/17/20 15:30 meclizine Allergy palpatation Uncoded 12/17/20 15:30 s Home Meds: Home Meds Furosemide [Lasix] 40 mg PO QPM 02/02/14 [History] Potassium 20 meq PO BID 02/02/14 [History] Spironolactone [Aldactone] 25 mg PO QAM 02/02/14 [History] traZODone HCl [Trazodone HCl] 100 mg PO BEDTIME PRN 03/04/14 [History] Levothyroxine Sodium [Synthroid] 112 mcg PO BEDTIME 11/28/16 [History] Sertraline HCl 100 mg PO QPM 11/28/16 [History] Alendronate [Fosamax] 70 mg PO WEEKLY 12/17/20 [History] Diclofenac Sodium [Voltaren Arthritis Pain] 2 - 4 gm TOP QID PRN 12/17/20 [History] Dulaglutide [Trulicity] 0.75 mg SQ WEEKLY 12/17/20 [History] Emollient Combination No.10 [Pedro Cream] 1 dose TOP ASDIRECTED PRN 12/17/20 [History] Hydrocodone/Acetaminophen [HYDROcodone-Acetaminophen 5-325 MG] 1 tab PO ASDIRECTED PRN 12/17/20 [History] InFLIXimab-DYYB [Inflectra] 100 mg IV WEEKLY 12/17/20 [History] Lidocaine 2.5%, Prilocaine 2.5 1 dose TOP TID PRN 12/17/20 [History] Mirabegron [Myrbetriq] 25 mg PO QAM 12/17/20 [History] Nystatin 1 dose TOP BID PRN 12/17/20 [History] Ondansetron [Zofran Odt] 8 mg SL ASDIRECTED PRN 12/17/20 [History] atorvaSTATin Calcium [Atorvastatin Calcium] 10 mg PO QAM 12/17/20 [History] Past Medical History HEENT History: Reports: Cataract, Other (See Below) Other HEENT History: wears glasses Cardiovascular History: Reports: Arrhythmia, High Cholesterol, GA, Other (See Below) Other Cardiovascular History: was told she had a previous GA per EKG- no symptoms, was told by 2 Doctors she had a Mitral Valve Prolapse and by 2 Doctors that she did not, was hypertensive before chemotherapy- not since Respiratory History: Reports: None Gastrointestinal History: Reports: Colon Polyp, GERD Genitourinary History: Reports: Renal Calculus, UTI, Recurrent, Other (See Below) Other Genitourinary History: left renal atrophy, 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 MEDICAL SCRIBE History: Reports: Musculoskeletal History: Reports: Osteoarthritis, Osteoporosis, RA, Other (See Below) Other Musculoskeletal History: hx of Psoriatic arthritis, currently has open areas on buttocks from sitting Neurological History: Reports: Concussion, Migraines, Neuropathy, Peripheral Other Neuro History: no migraines recently, states left leg is " to the knee" Psychiatric History: Reports: Depression Endocrine/Metabolic History: Reports: Diabetes, Type II, Hypothyroidism Hematologic History: Reports: None Immunologic History: Reports: None Oncologic (Cancer) History: Reports: Other (See Below) Other Oncologic History: Colorectal Dermatologic History: Reports: Psoriasis, Other (See Below) Other Dermatologic History: open areas on buttocks - Infectious Disease History Infectious Disease History: Reports: Chicken Pox, Measles, Mumps - Past Surgical History Head Surgeries/Procedures: Reports: None HEENT Surgical History: Reports: Cataract Surgery, Oral Surgery, Tonsillectomy Other HEENT Surgeries/Procedures: lashell blepharoplasty, has 6 dental implants Cardiovascular Surgical History: Reports: None Respiratory Surgical History: Reports: None GI Surgical History: Reports: Cholecystectomy, Colonoscopy, EGD Female Surgical History: Reports: D&C, Other (See Below) Other Female Surgeries/Procedures: removal of hemorrhagic ovarian cyst Endocrine Surgical History: Reports: None Neurological Surgical History: Reports: Lumbar Spine, Other (See Below) Other Neurological Surgeries/Procedures: had a "cage" put in her back Musculoskeletal Surgical History: Reports: Knee Replacement, Shoulder Surgery, Other (See Below) Other Musculoskeletal Surgeries/Procedures:: bilateral TKA, hx of right RTCR, hc of removal of bilateral great toenails, hx of tendon transfer both thumbs Other Oncologic Surgeries/Procedures: had Chemo and radiation therapy Social & Family History - Family History Family Medical History: No Pertinent Family History - Tobacco Use Tobacco Use Status *Q: Never Tobacco User - Caffeine Use Caffeine Use: Reports: Coffee, Tea - Recreational Drug Use Recreational Drug Use: No ED ROS GENERAL - Review of Systems Review Of Systems: Comprehensive ROS is negative, except as noted in HPI. ED EXAM, GENERAL - Physical Exam Exam: See Below Free Text/Narrative:: My physical exam is in the HPI #1 Interpretation EKG Interpretation Comments: EKG done 03/17/2021 at 2:02 PM shows a sinus rhythm heart rate is 79 TX is 317 QRS duration 473 QRS axis -77 there is a borderline prolonged TX interval probable left ventricular hypertrophy and right bundle branch block and left anterior fascicular block. Compared to 02/12/2018 these blocks and repolarization that go along with it were not new. Impression no acute injury Course - Vital Signs Last Recorded V/S: Last Vital Signs Temp 36.9 C 03/17/21 13:17 Pulse 92 03/17/21 16:31 Resp 17 03/17/21 16:31 BP 126/69 03/17/21 16:31 Pulse Ox 93 L 03/17/21 16:31 - Orders/Labs/Meds Orders: Active Orders 24 hr Category Date Time Status Sodium Chloride 0.9% [Saline Flush] Med 03/17/21 13:51 Active 10 ml FLUSH ASDIRECTED PRN Sodium Chloride 0.9% [Saline Flush] Med 03/17/21 13:51 Active 2.5 ml FLUSH ASDIRECTED PRN Saline Lock Insert [OM.PC] Stat Oth 03/17/21 13:51 Ordered Medication Orders Sodium Chloride (Sodium Chloride 0.9% 10 Ml Syringe) 10 ml FLUSH ASDIRECTED PRN PRN Reason: Keep Vein Open Last Admin: 03/17/21 14:10 Dose: 10 ml Documented by: RAJINDER Sodium Chloride (Sodium Chloride 0.9% 2.5 Ml Syringe) 2.5 ml FLUSH ASDIRECTED PRN PRN Reason: Keep Vein Open Last Admin: 03/17/21 14:09 Dose: 2.5 ml Documented by: RAJIDNER Labs: Laboratory Tests 03/17/21 03/17/21 03/17/21 Range/Units 13:27 13:27 13:27 WBC 4.09 (4.0-11.0) K/uL RBC 4.84 (4.30-5.90) M/uL Hgb 14.0 (12.0-16.0) g/dL Hct 41.6 (36.0-46.0) % MCV 86.0 (80.0-98.0) fL MCH 28.9 (27.0-32.0) pg MCHC 33.7 (31.0-37.0) g/dL RDW Std Deviation 48.7 (28.0-62.0) fl RDW Coeff of Kelley 15 (11.0-15.0) % Plt Count 89 L (150-400) K/uL MPV 11.90 (7.40-12.00) fL Neut % (Auto) 28.4 L (48.0-80.0) % Lymph % (Auto) 52.3 H (16.0-40.0) % Chaffee % (Auto) 15.2 H (0.0-15.0) % Eos % (Auto) 3.9 (0.0-7.0) % Baso % (Auto) 0.2 (0.0-1.5) % Neut # (Auto) 1.2 L (1.4-5.7) K/uL Lymph # (Auto) 2.1 (0.6-2.4) K/uL [place]fee # (Auto) 0.6 (0.0-0.8) K/uL Eos # (Auto) 0.2 (0.0-0.7) K/uL Baso # (Auto) 0.0 (0.0-0.1) K/uL Nucleated RBC % 0.0 /100WBC Nucleated RBCs # 0 K/uL D-Dimer, Quantitative 0.98 H (0.0-0.50) mg/L FEU Sodium 136 (136-145) mmol/L Potassium 3.5 (3.5-5.1) mmol/L Chloride 99 (98-107) mmol/L Carbon Dioxide 33.8 H (21.0-32.0) mmol/L BUN 13 (7.0-18.0) mg/dL Creatinine 1.2 H (0.6-1.0) mg/dL Est Cr Clr Drug Dosing 41.49 mL/min Estimated GFR (MDRD) 43.9 ml/min Glucose 148 H (74-106) mg/dL Calcium 8.6 (8.5-10.1) mg/dL Total Bilirubin 0.4 (0.2-1.0) mg/dL AST 57 H (15-37) IU/L ALT 37 (14-63) IU/L Alkaline Phosphatase 111 (46-116) U/L Troponin I < 0.050 (0.000-0.056) ng/mL Total Protein 8.0 (6.4-8.2) g/dL Albumin 2.9 L (3.4-5.0) g/dL Globulin 5.1 H (2.6-4.0) g/dL Albumin/Globulin Ratio 0.6 L (0.9-1.6) Lipase 161 (73-393) U/L Urine Color Urine Appearance Urine pH (5.0-8.0) Ur Specific Griffin (1.001-1.035) Urine Protein (NEGATIVE) mg/dL Urine Glucose (UA) (NEGATIVE) mg/dL Urine Ketones (NEGATIVE) mg/dL Urine Occult Blood (NEGATIVE) Urine Nitrite (NEGATIVE) Urine Bilirubin (NEGATIVE) Urine Urobilinogen (<2.0) EU/dL Ur Leukocyte Esterase (NEGATIVE) Urine RBC (0-2/HPF) Urine WBC (0-5/HPF) Ur Epithelial Cells (NONE-FEW) Urine Bacteria (NEGATIVE) SARS-CoV-2 RNA (DAYNA) (NEGATIVE) 03/17/21 03/17/21 Range/Units 13:28 14:16 WBC (4.0-11.0) K/uL RBC (4.30-5.90) M/uL Hgb (12.0-16.0) g/dL Hct (36.0-46.0) % MCV (80.0-98.0) fL MCH (27.0-32.0) pg MCHC (31.0-37.0) g/dL RDW Std Deviation (28.0-62.0) fl RDW Coeff of Kelley (11.0-15.0) % Plt Count (150-400) K/uL MPV (7.40-12.00) fL Neut % (Auto) (48.0-80.0) % Lymph % (Auto) (16.0-40.0) % Chaffee % (Auto) (0.0-15.0) % Eos % (Auto) (0.0-7.0) % Baso % (Auto) (0.0-1.5) % Neut # (Auto) (1.4-5.7) K/uL Lymph # (Auto) (0.6-2.4) K/uL Chaffee # (Auto) (0.0-0.8) K/uL Eos # (Auto) (0.0-0.7) K/uL Baso # (Auto) (0.0-0.1) K/uL Nucleated RBC % /100WBC Nucleated RBCs # K/uL D-Dimer, Quantitative (0.0-0.50) mg/L FEU Sodium (136-145) mmol/L Potassium (3.5-5.1) mmol/L Chloride (98-107) mmol/L Carbon Dioxide (21.0-32.0) mmol/L BUN (7.0-18.0) mg/dL Creatinine (0.6-1.0) mg/dL Est Cr Clr Drug Dosing mL/min Estimated GFR (MDRD) ml/min Glucose (74-106) mg/dL Calcium (8.5-10.1) mg/dL Total Bilirubin (0.2-1.0) mg/dL AST (15-37) IU/L ALT (14-63) IU/L Alkaline Phosphatase (46-116) U/L Troponin I (0.000-0.056) ng/mL Total Protein (6.4-8.2) g/dL Albumin (3.4-5.0) g/dL Globulin (2.6-4.0) g/dL Albumin/Globulin Ratio (0.9-1.6) Lipase (73-393) U/L Urine Color YELLOW Urine Appearance CLEAR Urine pH 6.5 (5.0-8.0) Ur Specific Griffin 1.010 (1.001-1.035) Urine Protein NEGATIVE (NEGATIVE) mg/dL Urine Glucose (UA) NEGATIVE (NEGATIVE) mg/dL Urine Ketones NEGATIVE (NEGATIVE) mg/dL Urine Occult Blood NEGATIVE (NEGATIVE) Urine Nitrite NEGATIVE (NEGATIVE) Urine Bilirubin NEGATIVE (NEGATIVE) Urine Urobilinogen 0.2 (<2.0) EU/dL Ur Leukocyte Esterase SMALL H (NEGATIVE) Urine RBC 0-1 (0-2/HPF) Urine WBC 2-4 (0-5/HPF) Ur Epithelial Cells FEW (NONE-FEW) Urine Bacteria FEW (NEGATIVE) SARS-CoV-2 RNA (DAYNA) POSITIVE H (NEGATIVE) Meds: Medications Generic Name Dose Route Start Last Admin Trade Name Freq PRN Reason Stop Dose Admin Sodium Chloride 10 ml 03/17/21 13:51 03/17/21 14:10 Sodium Chloride 0.9% 10 Ml Syringe FLUSH 10 ml ASDIRECTED PRN Administration Keep Vein Open Sodium Chloride 2.5 ml 03/17/21 13:51 03/17/21 14:09 Sodium Chloride 0.9% 2.5 Ml Syringe FLUSH 2.5 ml ASDIRECTED PRN Administration Keep Vein Open Discontinued Medications Generic Name Dose Route Start Last Admin Trade Name Freq PRN Reason Stop Dose Admin Iopamidol 100 ml 03/17/21 16:21 03/17/21 16:21 Iopamidol 755 Mg/Ml 500 Ml Multipack Bottle IVPUSH 03/17/21 16:22 100 ml ONETIME STA Administration Departure - Departure Time of Disposition: 17:09 Disposition: Home, Self-Care 01 Condition: Good Clinical Impression: Gastroesophageal reflux disease, Chest pain, COVID-19 - Discharge Information Instructions: COVID-19: Quarantine vs. Isolation - [facility] (04/29/2020), COVID-19: What to Do If You Are Sick- [facility] (07/28/2020), Food Choices for Gastroesophageal Reflux Disease, Adult, [id number] Referrals: Joey White MD [Primary Care Provider] - Forms: ED Department Discharge Additional Instructions: Take omeprazole or pantoprazole or similar proton pump inhibitor type acid moc[place] sewer which is [id number]. Elevate head of bed. Do not eat before dinner. Your paperwork was submitted for consideration for possible monoclonal antibodies. These are experimental and may be able to boost your immune system to help you through this episode. [facility] - [facility] [address] [place] [id number] [facility] [address] [place] [id number] The following information is given to patients seen in the emergency department who are being discharged to home. This information is to outline your options for follow-up care. We provide all patients seen in our emergency department with a follow-up referral. The need for follow-up, as well as the timing and circumstances, are variable depending upon the specifics of your emergency department visit. If you don't have a primary care physician on staff, we will provide you with a referral. We always advise you to contact your personal physician following an emergency department visit to inform them of the circumstance of the visit and for follow-up with them and/or the need for any referrals to a consulting specialist. The emergency department will also refer you to a specialist when appropriate. This referral assures that you have the opportunity for follow-up care with a specialist. All of these measure are taken in an effort to provide you with optimal care, which includes your follow-up. Under all circumstances we always encourage you to contact your private physician who remains a resource for coordinating your care. When calling for follow-up care, please make the office aware that this follow-up is from your recent emergency room visit. If for any reason you are refused follow-up, please contact the [facility] Emergency Department at and asked to speak to the emergency department charge nurse. Sepsis Event Note (ED) - Evaluation Sepsis Screening Result: No Definite Risk - Focused Exam Vital Signs: Vital Signs Temp Pulse Resp BP Pulse Ox 03/17/21 16:31 92 17 126/69 93 L 03/17/21 14:24 82 17 148/83 H 93 L 03/17/21 13:17 36.9 C 85 18 126/72 87 L - My Orders Last 24 Hours: My Active Orders 03/17/21 13:51 Sodium Chloride 0.9% [Saline Flush] 10 ml FLUSH ASDIRECTED PRN Sodium Chloride 0.9% [Saline Flush] 2.5 ml FLUSH ASDIRECTED PRN Saline Lock Insert [OM.PC] Stat - Assessment/Plan Last 24 Hours: My Active Orders 03/17/21 13:51 Sodium Chloride 0.9% [Saline Flush] 10 ml FLUSH ASDIRECTED PRN Sodium Chloride 0.9% [Saline Flush] 2.5 ml FLUSH ASDIRECTED PRN Saline Lock Insert [OM.PC] Stat
[2021-03-17 14:13] LABS: BLOOD UREA NITROGEN,BUN 13 mg/dL (7.0-18.0); CARBON DIOXIDE,CO2 33.8 mmol/L (21.0-32.0); CHLORIDE,CL 99 mmol/L (98-107); GLUCOSE RANDOM 148 mg/dL (74-106); LIPASE 161 U/L (73-393); POTASSIUM,K 3.5 mmol/L (3.5-5.1); SODIUM,NA 136 mmol/L (136-145)
--- NOTE | 2021-03-17 15:08 | CR ---
INDICATION: Chest pain TECHNIQUE: Portable upright AP view of the chest COMPARISON: PA and lateral chest radiograph 07/13/2016 FINDINGS: The lungs are clear. There is no appreciable pleural effusion or pneumothorax. The cardiomediastinal silhouette is normal. Degenerative changes are noted in the glenohumeral joints. IMPRESSION: No acute abnormality. Dictated by Simba Louise MD @ 03/17/2021 3:08:01 PM (Electronically Signed)
[2021-03-17] MEDS ORDERED: Iopamidol 755 MG/ML 500 ML Multipack Bottle IVPUSH STA (16:21)
--- NOTE | 2021-03-17 16:51 | CT ---
INDICATION: Chest pain. Elevated D-dimer. COMPARISON: Chest radiograph from today. CT of the abdomen and pelvis without contrast from 02/12/2018. TECHNIQUE: CT examination of the chest was performed with the uneventful intravenous administration of 75 cc of Isovue 370 while 1.0 and 1.5 mm thick axial sections were obtained through the pulmonary arteries. Please note that all CT scans at this facility use dose modulation, iterative reconstruction, and/or weight-based dosing when appropriate to reduce radiation dose to as low as reasonably achievable. FINDINGS: : There is no sign of pulmonary embolism, with normal enhancement and branching of the pulmonary arteries. The lungs are clear with no sign of significant infiltrate or mass. There is no sign of mediastinal or hilar mass or adenopathy. There is severe triple-vessel coronary calcification along with mild left main coronary calcification. The heart is normal in size. There is age appropriate appearance of the thoracic aorta and ascending great vessels. There is no sign of supraclavicular or axillary mass or adenopathy. The visualized superior liver, spleen, pancreas, left kidney, and adrenals are normal in appearance. There is minimal scoliosis of the thoracic spine convex towards the right. There is moderate, age-appropriate hypertrophic change scattered throughout the thoracic spine. There is mild primary osteoarthritis of both glenohumeral articulations. IMPRESSION: No sign of pulmonary embolism. Severe triple-vessel coronary calcification along with mild left main coronary calcification. The heart is normal in size. Please note that all CT scans at this facility use dose modulation, iterative reconstruction, and/or weight-based dosing when appropriate to reduce radiation dose to as low as reasonably achievable. Dictated by Job Goodwin MD @ 03/17/2021 4:49:42 PM (Electronically Signed)
[2021-03-17 17:23] VITALS: BP 107/62; PULSE 88
== END 2021-03-17 17:31 | disposition home or self-care (01) ==
LOC: MW.ED 13:04
DX: U07.1 COVID-19 (principal); K21.9 Gastro-esophageal reflux disease without esophagitis; E78.00 Pure hypercholesterolemia, unspecified; I25.2 Old myocardial infarction; E11.42 Type 2 diabetes mellitus with diabetic polyneuropathy; E03.9 Hypothyroidism, unspecified; Z88.2 Allergy status to sulfonamides; Z88.8 Allergy status to other drugs, medicaments and biological substances; Z79.899 Other long term (current) drug therapy; Z20.822 Contact with and (suspected) exposure to COVID-19
CPT/HCPCS: 36415; 71045; 71275; 80053; 81001; 83690; 84484; 85025; 85379; 99285; Q9967; U0002

== ENCOUNTER 2021-03-18 18:45 | Emergency (ER) | payer MEDICARE, OTHER | END 2021-03-18 20:15 | disposition left against medical advice (07) | LOC: MW.ED 18:45 | DX: Z53.21 Procedure and treatment not carried out due to patient leaving prior to being seen by health care provider (principal) ==

== ENCOUNTER 2023-01-10 12:40 | Inpatient (IN) | payer MEDICARE, OTHER ==
[2023-01-10] MEDS ORDERED: Aspirin 300 MG Supp RECTAL STA (12:44)
[2023-01-10] MEDS ORDERED: Acetaminophen 650 MG Supp RECTAL STA (12:44)
[2023-01-10] MEDS ORDERED: Sodium Chloride 0.9% 2.5 ML Syringe FLUSH PRN (12:47)
[2023-01-10] MEDS ORDERED: cefTRIAXone 2 GM in Sodium Chloride 0.9% 50 ML IV ONE (12:47)
[2023-01-10] MEDS ORDERED: Sodium Chloride 0.9% 10 ML Syringe FLUSH PRN (12:47)
[2023-01-10] MEDS ORDERED: Sodium Chloride 0.9% 2,000 ML IV ONE (12:47)
[2023-01-10] MEDS ORDERED: Azithromycin 500 MG in Sodium Chloride 0.9% 250 ML IV ONE (12:52)
[2023-01-10] MEDS ORDERED: metroNIDAZOLE/Normal Saline 500 MG in Premix Bag 1 BAG IV ONE (12:53)
[2023-01-10 13:10] LABS: BASE EXCESS ARTERIAL 1.6 (-2.0-3.0); BICARBONATE,ARTERIAL 26 mEq/L (22-26); PCO2 ARTERIAL 38 mmHG (35-45); PO2 ARTERIAL 339 mmHG (80-105)
[2023-01-10 13:58] LABS: BASOPHILS PERCENT AUTO 0.1 % (0.0-1.5); EOSINOPHILS ABSOLUTE AUTO 0.1 K/uL (0.0-0.7); EOSINOPHILS PERCENT AUTO 0.9 % (0.0-7.0); HEMATOCRIT 36.2 % (36.0-46.0); HEMOGLOBIN 11.5 g/dL (12.0-16.0); LYMPHOCYTES ABSOLUTE AUTO 0.6 K/uL (0.6-2.4); LYMPHOCYTES PERCENT AUTO 8.2 % (16.0-40.0); MEAN CORPUSCULAR HEMOGLOBIN 26.6 pg (27.0-32.0); MEAN CORPUSCULAR HGB CONC 31.8 g/dL (31.0-37.0); MEAN CORPUSCULAR VOLUME 83.6 fL (80.0-98.0); MONOCYTES ABSOLUTE AUTO 0.3 K/uL (0.0-0.8); MONOCYTES PERCENT AUTO 3.2 % (0.0-15.0); NEUTROPHILS ABSOLUTE AUTO 6.9 K/uL (1.4-5.7); NEUTROPHILS PERCENT AUTO 87.6 % (48.0-80.0); NRBC ABSOLUTE 0 K/uL; PLATELET COUNT,PLT 71 K/uL (150-400); RED BLOOD CELL COUNT 4.33 M/uL (4.30-5.90); WHITE BLOOD CELL COUNT,WBC 7.84 K/uL (4.0-11.0)
[2023-01-10 14:06] LABS: APPEARANCE,URINE SLT CLOUDY; BILIRUBIN,URINE NEGATIVE (NEGATIVE); COLOR,URINE YELLOW; GLUCOSE,URINE NEGATIVE (NEGATIVE); KETONES,URINE NEGATIVE (NEGATIVE); LEUKOCYTE ESTERASE,URINE SMALL (NEGATIVE); NITRITE,URINE POSITIVE (NEGATIVE); OCCULT BLOOD,URINE MODERATE (NEGATIVE); PROTEIN,URINE NEGATIVE (NEGATIVE); UROBILINOGEN,URINE 0.2 EU/dL (<2.0)
[2023-01-10 14:09] LABS: INR 1.29 (0.86-1.11)
[2023-01-10 14:26] LABS: LACTIC ACID 1.4 mmol/L (0.4-2.0)
[2023-01-10 14:28] LABS: A/G RATIO 0.6 (0.9-1.6); ALANINE AMINOTRANSFERASE,ALT 20 IU/L (14-63); ALBUMIN 2.7 g/dL (3.4-5.0); ALKALINE PHOSPHATASE 94 U/L (46-116); ASPARTATE AMNIOTRANSFERASE,AST 41 IU/L (15-37); BILIRUBIN TOTAL 0.7 mg/dL (0.2-1.0); BLOOD UREA NITROGEN,BUN 23 mg/dL (7.0-18.0); CHLORIDE,CL 103 mmol/L (98-107); CREATININE 1.2 mg/dL (0.6-1.0); GLUCOSE RANDOM 158 mg/dL (74-106); MAGNESIUM 1.4 mg/dL (1.8-2.4); PHOSPHORUS 2.7 mg/dL (2.6-4.7); POTASSIUM,K 3.9 mmol/L (3.5-5.1); SODIUM,NA 138 mmol/L (136-145)
[2023-01-10 14:32] LABS: ESTIMATED GFR 47 mL/min (>60)
[2023-01-10 14:33] LABS: BACTERIA,URINE FEW (NEGATIVE); EPITHELIAL CELLS,URINE OCCASIONAL (NONE-FEW)
[2023-01-10] MEDS ORDERED: Magnesium Sulfate/Water 2 GM in Premix Bag 1 BAG IV ONE (15:18)
[2023-01-10 16:11] LABS: CORONAVIRUS COVID-19 NAA NEGATIVE (NEGATIVE); INFLUENZA A NAA NEGATIVE (NEGATIVE); INFLUENZA B NAA NEGATIVE (NEGATIVE); RESPIRATORY SYNCYTIAL VIR NAA NEGATIVE (NEGATIVE)
[2023-01-10] MEDS ORDERED: Sodium Chloride 0.9% 1,000 ML IV SCH (16:30)
[2023-01-10] MEDS ORDERED: Glucagon,Human Recombinant 1 MG Vial IM PRN (17:42)
[2023-01-10] MEDS ORDERED: 50% Dextrose in Water 50 ML Syringe IVPUSH PRN (17:42)
[2023-01-11] MEDS ORDERED: Piperacillin/Tazobactam 3.375 GM in Sodium Chloride 0.9% 100 ML IV SCH (03:00)
[2023-01-11] MEDS: Piperacillin/Tazobactam 4.5 GM in Sodium Chloride 0.9% 100 ML IV SCH ×3 (03:39→18:23)
[2023-01-11] MEDS: Acetaminophen 325 MG Tab PO PRN (05:46)
[2023-01-11 06:38] LABS: BASOPHILS PERCENT AUTO 0.1 % (0.0-1.5); EOSINOPHILS ABSOLUTE AUTO 0.1 K/uL (0.0-0.7); EOSINOPHILS PERCENT AUTO 0.7 % (0.0-7.0); HEMATOCRIT 32.6 % (36.0-46.0); HEMOGLOBIN 10.3 g/dL (12.0-16.0); LYMPHOCYTES ABSOLUTE AUTO 2.1 K/uL (0.6-2.4); LYMPHOCYTES PERCENT AUTO 14.2 % (16.0-40.0); MEAN CORPUSCULAR HEMOGLOBIN 26.1 pg (27.0-32.0); MEAN CORPUSCULAR HGB CONC 31.6 g/dL (31.0-37.0); MEAN CORPUSCULAR VOLUME 82.5 fL (80.0-98.0); MONOCYTES ABSOLUTE AUTO 1.1 K/uL (0.0-0.8); MONOCYTES PERCENT AUTO 7.6 % (0.0-15.0); NEUTROPHILS ABSOLUTE AUTO 11.7 K/uL (1.4-5.7); NEUTROPHILS PERCENT AUTO 77.4 % (48.0-80.0); NRBC ABSOLUTE 0 K/uL; RED BLOOD CELL COUNT 3.95 M/uL (4.30-5.90); WHITE BLOOD CELL COUNT,WBC 15.09 K/uL (4.0-11.0)
[2023-01-11 07:04] LABS: A/G RATIO 0.6 (0.9-1.6); ALBUMIN 2.4 g/dL (3.4-5.0); BILIRUBIN TOTAL 0.7 mg/dL (0.2-1.0); CALCIUM 7.7 mg/dL (8.5-10.1); CARBON DIOXIDE,CO2 27.2 mmol/L (21.0-32.0); CREATININE 1.2 mg/dL (0.6-1.0); EST CRCL DRUG DOSING (CG) 40.23 mL/min; POTASSIUM,K 3.6 mmol/L (3.5-5.1); PROTEIN TOTAL,TP 6.4 g/dL (6.4-8.2)
[2023-01-11 07:05] LABS: PLATELET COUNT,PLT 62 K/uL (150-400)
[2023-01-11] MEDS: Insulin Aspart 100 Units/ML 3 ML Pen SUBCUT SCH ×3 (08:32→17:27)
[2023-01-11] MEDS ORDERED: Sodium Chloride 0.9% 2.5 ML Syringe FLUSH PRN (08:41)
[2023-01-11] MEDS ORDERED: Docusate Sodium 100 MG Cap PO PRN (08:41)
[2023-01-11] MEDS ORDERED: Ondansetron 4 MG/2 ML SDV IVPUSH PRN (08:41)
[2023-01-11] MEDS ORDERED: Polyethylene Glycol 3350 Powder 17 GM Packet PO PRN (08:41)
[2023-01-11] MEDS ORDERED: Sodium Chloride 0.9% 10 ML Syringe FLUSH PRN (08:41)
[2023-01-11] MEDS ORDERED: DICLOFENAC SODIUM TOP PRN (09:55)
[2023-01-11] MEDS ORDERED: [UNRECOGNIZED DRUG - OTHER] TOP PRN (09:55)
[2023-01-11] MEDS ORDERED: cefTRIAXone 1 GM in Sodium Chloride 0.9% 50 ML IV SCH (13:00)
[2023-01-11] MEDS: Acetaminophen 325 MG Tab PO SCH ×2 (13:14→18:22)
[2023-01-11] MEDS: Azithromycin 500 MG in Sodium Chloride 0.9% 250 ML IV SCH (13:15)
[2023-01-11] MEDS: Sertraline 100 MG Tab PO SCH (18:22)
[2023-01-11] MEDS: Albuterol 0.083% 2.5 MG/3 ML Neb Soln NEB PRN ×2 (18:26→20:41)
[2023-01-11] MEDS: atorvaSTATin 10 MG Tab PO SCH (20:18)
[2023-01-11] MEDS: Levothyroxine 112 MCG Tab PO SCH (20:19)
[2023-01-11] MEDS: Insulin Glargine,Hum.Rec.Anlog 100 UNIT/ML 3 ML Pen SUBCUT SCH (20:34)
[2023-01-12] MEDS: Acetaminophen 325 MG Tab PO PRN
[2023-01-12] MEDS: Benzonatate 100 MG Cap PO PRN ×3 (00:01→20:34)
[2023-01-12] MEDS: Albuterol 0.083% 2.5 MG/3 ML Neb Soln NEB PRN ×5 (00:02→17:55)
[2023-01-12] MEDS: Piperacillin/Tazobactam 4.5 GM in Sodium Chloride 0.9% 100 ML IV SCH ×3 (03:07→18:41)
[2023-01-12] MEDS: Codeine/guaiFENesin 10-100 MG/5 ML Syrup 5 ML Cup PO PRN ×2 (03:38→15:40)
[2023-01-12] MEDS: Omeprazole 20 MG Cap.CR PO SCH (06:30)
[2023-01-12 06:33] LABS: BASOPHILS PERCENT AUTO 0.2 % (0.0-1.5); EOSINOPHILS ABSOLUTE AUTO 0.1 K/uL (0.0-0.7); EOSINOPHILS PERCENT AUTO 0.8 % (0.0-7.0); HEMATOCRIT 32.3 % (36.0-46.0); HEMOGLOBIN 10.5 g/dL (12.0-16.0); LYMPHOCYTES ABSOLUTE AUTO 1.7 K/uL (0.6-2.4); LYMPHOCYTES PERCENT AUTO 15.1 % (16.0-40.0); MEAN CORPUSCULAR HEMOGLOBIN 26.8 pg (27.0-32.0); MEAN CORPUSCULAR HGB CONC 32.5 g/dL (31.0-37.0); MEAN CORPUSCULAR VOLUME 82.4 fL (80.0-98.0); MONOCYTES ABSOLUTE AUTO 0.7 K/uL (0.0-0.8); MONOCYTES PERCENT AUTO 6.3 % (0.0-15.0); NEUTROPHILS ABSOLUTE AUTO 8.5 K/uL (1.4-5.7); NEUTROPHILS PERCENT AUTO 77.6 % (48.0-80.0); NRBC ABSOLUTE 0 K/uL; RED BLOOD CELL COUNT 3.92 M/uL (4.30-5.90); WHITE BLOOD CELL COUNT,WBC 10.92 K/uL (4.0-11.0)
[2023-01-12 06:54] LABS: PLATELET COUNT,PLT 78 K/uL (150-400)
[2023-01-12 06:58] LABS: CALCIUM 7.9 mg/dL (8.5-10.1); CARBON DIOXIDE,CO2 23.7 mmol/L (21.0-32.0); CREATININE 1.4 mg/dL (0.6-1.0); EST CRCL DRUG DOSING (CG) 34.49 mL/min; MAGNESIUM 1.9 mg/dL (1.8-2.4); PHOSPHORUS 2.8 mg/dL (2.6-4.7)
[2023-01-12] MEDS: Insulin Aspart 100 Units/ML 3 ML Pen SUBCUT SCH ×3 (07:36→16:49)
[2023-01-12] MEDS: Acetaminophen 325 MG Tab PO SCH ×3 (08:25→16:47)
[2023-01-12] MEDS: Mirabegron 25 MG Tab.Er PO SCH (09:08)
[2023-01-12] MEDS: Azithromycin 500 MG in Sodium Chloride 0.9% 250 ML IV SCH (14:35)
[2023-01-12] MEDS: Sertraline 100 MG Tab PO SCH (17:55)
[2023-01-12] MEDS: Furosemide 40 MG Tab PO SCH (17:55)
[2023-01-12] MEDS: atorvaSTATin 10 MG Tab PO SCH (20:33)
[2023-01-12] MEDS: Levothyroxine 112 MCG Tab PO SCH (20:34)
[2023-01-12] MEDS: Insulin Glargine,Hum.Rec.Anlog 100 UNIT/ML 3 ML Pen SUBCUT SCH (20:44)
[2023-01-13] MEDS: traZODone 50 MG Tab PO PRN (01:02)
[2023-01-13] MEDS: Piperacillin/Tazobactam 4.5 GM in Sodium Chloride 0.9% 100 ML IV SCH ×3 (02:58→18:05)
[2023-01-13] MEDS: Albuterol 0.083% 2.5 MG/3 ML Neb Soln NEB PRN ×2 (02:58→19:57)
[2023-01-13] MEDS: Codeine/guaiFENesin 10-100 MG/5 ML Syrup 5 ML Cup PO PRN (03:08)
[2023-01-13 05:57] LABS: BASOPHILS PERCENT AUTO 0.1 % (0.0-1.5); EOSINOPHILS PERCENT AUTO 0.5 % (0.0-7.0); HEMATOCRIT 30.6 % (36.0-46.0); HEMOGLOBIN 9.8 g/dL (12.0-16.0); LYMPHOCYTES ABSOLUTE AUTO 1.4 K/uL (0.6-2.4); MEAN CORPUSCULAR HEMOGLOBIN 26.2 pg (27.0-32.0); MEAN CORPUSCULAR VOLUME 81.8 fL (80.0-98.0); MONOCYTES ABSOLUTE AUTO 0.7 K/uL (0.0-0.8); MONOCYTES PERCENT AUTO 8.3 % (0.0-15.0); NEUTROPHILS ABSOLUTE AUTO 6.5 K/uL (1.4-5.7); NEUTROPHILS PERCENT AUTO 75.1 % (48.0-80.0); NRBC ABSOLUTE 0 K/uL; PLATELET COUNT,PLT 73 K/uL (150-400); RED BLOOD CELL COUNT 3.74 M/uL (4.30-5.90); WHITE BLOOD CELL COUNT,WBC 8.69 K/uL (4.0-11.0)
[2023-01-13 06:14] LABS: CALCIUM 7.4 mg/dL (8.5-10.1); CARBON DIOXIDE,CO2 25.5 mmol/L (21.0-32.0); CREATININE 1.1 mg/dL (0.6-1.0); EST CRCL DRUG DOSING (CG) 43.89 mL/min; MAGNESIUM 1.5 mg/dL (1.8-2.4); POTASSIUM,K 3.1 mmol/L (3.5-5.1)
[2023-01-13] MEDS: Insulin Aspart 100 Units/ML 3 ML Pen SUBCUT SCH ×3 (07:01→16:49)
[2023-01-13] MEDS: Acetaminophen 325 MG Tab PO SCH ×3 (07:13→16:53)
[2023-01-13] MEDS: Omeprazole 20 MG Cap.CR PO SCH (07:14)
[2023-01-13] MEDS ORDERED: Potassium Chloride 20 MEQ Tab.ER PO ONE ×2 (07:31→13:00)
[2023-01-13] MEDS ORDERED: Furosemide 40 MG/4 ML VIAL IVPUSH ONE ×2 (07:31→14:30)
[2023-01-13] MEDS: Benzonatate 100 MG Cap PO PRN ×2 (07:52→18:25)
[2023-01-13] MEDS: Mirabegron 25 MG Tab.Er PO SCH (09:00)
[2023-01-13] MEDS: Spironolactone 25 MG Tab PO SCH (09:02)
[2023-01-13] MEDS ORDERED: Magnesium Sulfate/Water 4 GM in Premix Bag 1 BAG IV ONE (09:03)
[2023-01-13] MEDS ORDERED: Potassium Chloride 100 ML IV SCH (09:15)
[2023-01-13 11:29] LABS: CORONAVIRUS COVID-19 NAA NEGATIVE (NEGATIVE); INFLUENZA A NAA NEGATIVE (NEGATIVE); INFLUENZA B NAA NEGATIVE (NEGATIVE)
[2023-01-13] MEDS: Azithromycin 500 MG in Sodium Chloride 0.9% 250 ML IV SCH ×2 (13:48→15:25)
[2023-01-13] MEDS: Sertraline 100 MG Tab PO SCH (18:05)
[2023-01-13] MEDS: Furosemide 40 MG Tab PO SCH (18:05)
[2023-01-13] MEDS: atorvaSTATin 10 MG Tab PO SCH (20:01)
[2023-01-13] MEDS: Levothyroxine 112 MCG Tab PO SCH (20:01)
[2023-01-13] MEDS: Insulin Glargine,Hum.Rec.Anlog 100 UNIT/ML 3 ML Pen SUBCUT SCH (20:30)
[2023-01-13] MEDS ORDERED: Acetaminophen/HYDROcodone 325-10 MG Tab PO PRN (23:34)
[2023-01-14] MEDS: Piperacillin/Tazobactam 4.5 GM in Sodium Chloride 0.9% 100 ML IV SCH ×3 (03:09→18:41)
[2023-01-14] MEDS ORDERED: Acetaminophen/HYDROcodone 325-10 MG Tab PO PRN (03:25)
[2023-01-14] MEDS: Albuterol 0.083% 2.5 MG/3 ML Neb Soln NEB PRN ×2 (04:18→12:05)
[2023-01-14] MEDS: Benzonatate 100 MG Cap PO PRN ×3 (04:18→22:01)
[2023-01-14 05:59] LABS: BASOPHILS PERCENT AUTO 0.4 % (0.0-1.5); EOSINOPHILS ABSOLUTE AUTO 0.3 K/uL (0.0-0.7); EOSINOPHILS PERCENT AUTO 3.2 % (0.0-7.0); HEMATOCRIT 31.3 % (36.0-46.0); HEMOGLOBIN 10.1 g/dL (12.0-16.0); LYMPHOCYTES ABSOLUTE AUTO 2.3 K/uL (0.6-2.4); LYMPHOCYTES PERCENT AUTO 28.4 % (16.0-40.0); MEAN CORPUSCULAR HEMOGLOBIN 26.3 pg (27.0-32.0); MEAN CORPUSCULAR HGB CONC 32.3 g/dL (31.0-37.0); MEAN CORPUSCULAR VOLUME 81.5 fL (80.0-98.0); MONOCYTES ABSOLUTE AUTO 0.7 K/uL (0.0-0.8); MONOCYTES PERCENT AUTO 8.5 % (0.0-15.0); NEUTROPHILS ABSOLUTE AUTO 4.8 K/uL (1.4-5.7); NEUTROPHILS PERCENT AUTO 59.5 % (48.0-80.0); NRBC ABSOLUTE 0 K/uL; PLATELET COUNT,PLT 75 K/uL (150-400); RED BLOOD CELL COUNT 3.84 M/uL (4.30-5.90); WHITE BLOOD CELL COUNT,WBC 8.02 K/uL (4.0-11.0)
[2023-01-14 06:23] LABS: A/G RATIO 0.5 (0.9-1.6); ALBUMIN 2.1 g/dL (3.4-5.0); BILIRUBIN TOTAL 0.8 mg/dL (0.2-1.0); CALCIUM 7.7 mg/dL (8.5-10.1); CARBON DIOXIDE,CO2 26.8 mmol/L (21.0-32.0); CREATININE 1.2 mg/dL (0.6-1.0); EST CRCL DRUG DOSING (CG) 40.23 mL/min; MAGNESIUM 1.6 mg/dL (1.8-2.4); PHOSPHORUS 2.1 mg/dL (2.6-4.7); POTASSIUM,K 3.6 mmol/L (3.5-5.1); PROTEIN TOTAL,TP 6.5 g/dL (6.4-8.2)
[2023-01-14] MEDS: Omeprazole 20 MG Cap.CR PO SCH (06:31)
[2023-01-14] MEDS: Insulin Aspart 100 Units/ML 3 ML Pen SUBCUT SCH ×3 (06:31→18:40)
[2023-01-14] MEDS: Mirabegron 25 MG Tab.Er PO SCH (08:01)
[2023-01-14] MEDS: Spironolactone 25 MG Tab PO SCH (08:01)
[2023-01-14] MEDS: Acetaminophen 325 MG Tab PO SCH ×3 (08:01→18:38)
[2023-01-14] MEDS ORDERED: Magnesium Oxide 400 MG Tab PO ONE (09:02)
[2023-01-14] MEDS ORDERED: Potassium Chloride 20 MEQ Tab.ER PO ONE (09:09)
[2023-01-14] MEDS ORDERED: Phosphorus #1 250 MG Tab PO SCH (10:11)
[2023-01-14] MEDS ORDERED: Albuterol/Ipratropium 3.0-0.5 MG/3 ML Neb Soln NEB ONE (10:21)
[2023-01-14] MEDS: Codeine/guaiFENesin 10-100 MG/5 ML Syrup 5 ML Cup PO PRN ×2 (12:05)
[2023-01-14] MEDS: Azithromycin 500 MG in Sodium Chloride 0.9% 250 ML IV SCH (16:09)
[2023-01-14] MEDS: Furosemide 40 MG Tab PO SCH (18:37)
[2023-01-14] MEDS: Phosphorus #1 250 MG Tab PO SCH ×2 (18:38→23:12)
[2023-01-14] MEDS: Sertraline 100 MG Tab PO SCH (18:40)
[2023-01-14] MEDS ORDERED: Diphenhydramine/Lidocaine/MagAl/Simethicone 119 ML Bottle PO PRN (21:26)
[2023-01-14] MEDS: Insulin Glargine,Hum.Rec.Anlog 100 UNIT/ML 3 ML Pen SUBCUT SCH (22:00)
[2023-01-14] MEDS: atorvaSTATin 10 MG Tab PO SCH (22:01)
[2023-01-14] MEDS: Levothyroxine 112 MCG Tab PO SCH (22:04)
[2023-01-15] MEDS: Acetaminophen 325 MG Tab PO PRN (00:03)
[2023-01-15] MEDS: Albuterol 0.083% 2.5 MG/3 ML Neb Soln NEB PRN ×2 (01:09→06:26)
[2023-01-15] MEDS: Piperacillin/Tazobactam 4.5 GM in Sodium Chloride 0.9% 100 ML IV SCH ×3 (03:00→18:43)
[2023-01-15 06:02] LABS: BASOPHILS PERCENT AUTO 0.5 % (0.0-1.5); EOSINOPHILS ABSOLUTE AUTO 0.3 K/uL (0.0-0.7); HEMATOCRIT 31.3 % (36.0-46.0); HEMOGLOBIN 10.1 g/dL (12.0-16.0); LYMPHOCYTES ABSOLUTE AUTO 1.4 K/uL (0.6-2.4); LYMPHOCYTES PERCENT AUTO 21.7 % (16.0-40.0); MEAN CORPUSCULAR HEMOGLOBIN 26.3 pg (27.0-32.0); MEAN CORPUSCULAR HGB CONC 32.3 g/dL (31.0-37.0); MEAN CORPUSCULAR VOLUME 81.5 fL (80.0-98.0); MONOCYTES ABSOLUTE AUTO 0.6 K/uL (0.0-0.8); MONOCYTES PERCENT AUTO 9.7 % (0.0-15.0); NEUTROPHILS ABSOLUTE AUTO 3.9 K/uL (1.4-5.7); NEUTROPHILS PERCENT AUTO 63.1 % (48.0-80.0); NRBC ABSOLUTE 0 K/uL; PLATELET COUNT,PLT 83 K/uL (150-400); RED BLOOD CELL COUNT 3.84 M/uL (4.30-5.90); WHITE BLOOD CELL COUNT,WBC 6.21 K/uL (4.0-11.0)
[2023-01-15] MEDS: Phosphorus #1 250 MG Tab PO SCH ×3 (06:15→18:13)
[2023-01-15] MEDS: Omeprazole 20 MG Cap.CR PO SCH ×2 (06:16→06:32)
[2023-01-15 06:23] LABS: A/G RATIO 0.5 (0.9-1.6); BILIRUBIN TOTAL 0.6 mg/dL (0.2-1.0); CALCIUM 7.8 mg/dL (8.5-10.1); CARBON DIOXIDE,CO2 27.8 mmol/L (21.0-32.0); EST CRCL DRUG DOSING (CG) 48.28 mL/min; MAGNESIUM 1.5 mg/dL (1.8-2.4); PHOSPHORUS 2.4 mg/dL (2.6-4.7); POTASSIUM,K 3.5 mmol/L (3.5-5.1); PROTEIN TOTAL,TP 6.4 g/dL (6.4-8.2)
[2023-01-15] MEDS: Insulin Aspart 100 Units/ML 3 ML Pen SUBCUT SCH ×3 (06:31→16:59)
[2023-01-15] MEDS ORDERED: Magnesium Sulfate/Water 4 GM in Premix Bag 1 BAG IV ONE (08:18)
[2023-01-15] MEDS: Acetaminophen 325 MG Tab PO SCH ×3 (08:20→16:50)
[2023-01-15] MEDS: Spironolactone 25 MG Tab PO SCH (08:20)
[2023-01-15] MEDS: Mirabegron 25 MG Tab.Er PO SCH (08:21)
[2023-01-15] MEDS: Benzonatate 100 MG Cap PO PRN (08:52)
[2023-01-15] MEDS: [UNRECOGNIZED DRUG - OTHER] PRN (13:37)
[2023-01-15] MEDS: ORAJEL PRN (13:37)
[2023-01-15] MEDS ORDERED: Furosemide 20 MG/2 ML VIAL IVPUSH ONE (15:48)
[2023-01-15] MEDS: Azithromycin 500 MG in Sodium Chloride 0.9% 250 ML IV SCH (17:36)
[2023-01-15] MEDS: Sertraline 100 MG Tab PO SCH (18:12)
[2023-01-15] MEDS: Furosemide 40 MG Tab PO SCH (18:14)
[2023-01-15] MEDS: atorvaSTATin 10 MG Tab PO SCH (21:39)
[2023-01-15] MEDS: Insulin Glargine,Hum.Rec.Anlog 100 UNIT/ML 3 ML Pen SUBCUT SCH (21:40)
[2023-01-15] MEDS: Levothyroxine 112 MCG Tab PO SCH (21:40)
[2023-01-16] MEDS: Phosphorus #1 250 MG Tab PO SCH ×2 (00:29→06:32)
[2023-01-16] MEDS: traZODone 50 MG Tab PO PRN (00:29)
[2023-01-16] MEDS: Piperacillin/Tazobactam 4.5 GM in Sodium Chloride 0.9% 100 ML IV SCH ×3 (03:13→19:27)
[2023-01-16 06:00] LABS: BASOPHILS PERCENT AUTO 0.6 % (0.0-1.5); EOSINOPHILS ABSOLUTE AUTO 0.4 K/uL (0.0-0.7); EOSINOPHILS PERCENT AUTO 6.6 % (0.0-7.0); HEMATOCRIT 32.6 % (36.0-46.0); HEMOGLOBIN 10.3 g/dL (12.0-16.0); LYMPHOCYTES ABSOLUTE AUTO 1.8 K/uL (0.6-2.4); LYMPHOCYTES PERCENT AUTO 29.2 % (16.0-40.0); MEAN CORPUSCULAR HEMOGLOBIN 25.8 pg (27.0-32.0); MEAN CORPUSCULAR HGB CONC 31.6 g/dL (31.0-37.0); MEAN CORPUSCULAR VOLUME 81.7 fL (80.0-98.0); MONOCYTES ABSOLUTE AUTO 0.6 K/uL (0.0-0.8); MONOCYTES PERCENT AUTO 9.1 % (0.0-15.0); NEUTROPHILS ABSOLUTE AUTO 3.4 K/uL (1.4-5.7); NEUTROPHILS PERCENT AUTO 54.5 % (48.0-80.0); NRBC ABSOLUTE 0 K/uL; RED BLOOD CELL COUNT 3.99 M/uL (4.30-5.90); WHITE BLOOD CELL COUNT,WBC 6.17 K/uL (4.0-11.0)
[2023-01-16 06:29] LABS: PLATELET COUNT,PLT 102 K/uL (150-400)
[2023-01-16] MEDS: Omeprazole 20 MG Cap.CR PO SCH (06:32)
[2023-01-16 06:38] LABS: A/G RATIO 0.5 (0.9-1.6); BILIRUBIN TOTAL 0.6 mg/dL (0.2-1.0); CALCIUM 7.7 mg/dL (8.5-10.1); CARBON DIOXIDE,CO2 26.7 mmol/L (21.0-32.0); EST CRCL DRUG DOSING (CG) 48.28 mL/min; MAGNESIUM 1.7 mg/dL (1.8-2.4); POTASSIUM,K 3.6 mmol/L (3.5-5.1); PROTEIN TOTAL,TP 6.3 g/dL (6.4-8.2)
[2023-01-16] MEDS: Insulin Aspart 100 Units/ML 3 ML Pen SUBCUT SCH ×3 (07:17→17:30)
[2023-01-16] MEDS: Spironolactone 25 MG Tab PO SCH (08:06)
[2023-01-16] MEDS: Acetaminophen 325 MG Tab PO SCH ×3 (08:07→17:29)
[2023-01-16] MEDS: Mirabegron 25 MG Tab.Er PO SCH (08:09)
[2023-01-16] MEDS ORDERED: Magnesium Sulfate/Water 2 GM in Premix Bag 1 BAG IV ONE (08:33)
[2023-01-16] MEDS ORDERED: Fluconazole 150 MG Tab PO ONE (10:30)
[2023-01-16] MEDS: Albuterol/Ipratropium 3.0-0.5 MG/3 ML Neb Soln NEB SCH ×2 (10:51→13:52)
[2023-01-16] MEDS: Nystatin Susp 100,000 Unit/ML 5 ML UD Cup PO SCH ×3 (11:50→23:00)
[2023-01-16] MEDS ORDERED: Albuterol/Ipratropium 3.0-0.5 MG/3 ML Neb Soln NEB PRN (15:06)
[2023-01-16] MEDS ORDERED: Furosemide 40 MG/4 ML VIAL IVPUSH ONE (15:07)
[2023-01-16] MEDS: Azithromycin 500 MG in Sodium Chloride 0.9% 250 ML IV SCH (16:15)
[2023-01-16] MEDS: Sertraline 100 MG Tab PO SCH (17:30)
[2023-01-16] MEDS: atorvaSTATin 10 MG Tab PO SCH (20:12)
[2023-01-16] MEDS: Levothyroxine 112 MCG Tab PO SCH (20:12)
[2023-01-16] MEDS: Benzonatate 100 MG Cap PO PRN (20:31)
[2023-01-16] MEDS: Insulin Glargine,Hum.Rec.Anlog 100 UNIT/ML 3 ML Pen SUBCUT SCH (20:33)
[2023-01-16] MEDS: ORAJEL PRN (22:57)
[2023-01-16] MEDS: [UNRECOGNIZED DRUG - OTHER] PRN (22:57)
[2023-01-17] MEDS: Albuterol 0.083% 2.5 MG/3 ML Neb Soln NEB PRN ×2 (02:21→06:03)
[2023-01-17] MEDS: Piperacillin/Tazobactam 4.5 GM in Sodium Chloride 0.9% 100 ML IV SCH ×3 (03:15→18:53)
[2023-01-17] MEDS: Omeprazole 20 MG Cap.CR PO SCH ×2 (05:56→06:33)
[2023-01-17] MEDS: Benzonatate 100 MG Cap PO PRN (05:56)
[2023-01-17] MEDS: Nystatin Susp 100,000 Unit/ML 5 ML UD Cup PO SCH ×3 (05:57→18:49)
[2023-01-17 06:44] LABS: BASOPHILS PERCENT AUTO 0.6 % (0.0-1.5); EOSINOPHILS ABSOLUTE AUTO 0.4 K/uL (0.0-0.7); EOSINOPHILS PERCENT AUTO 5.3 % (0.0-7.0); HEMATOCRIT 35.9 % (36.0-46.0); HEMOGLOBIN 11.4 g/dL (12.0-16.0); LYMPHOCYTES ABSOLUTE AUTO 2.3 K/uL (0.6-2.4); MEAN CORPUSCULAR HEMOGLOBIN 25.9 pg (27.0-32.0); MEAN CORPUSCULAR HGB CONC 31.8 g/dL (31.0-37.0); MEAN CORPUSCULAR VOLUME 81.4 fL (80.0-98.0); MONOCYTES ABSOLUTE AUTO 0.4 K/uL (0.0-0.8); MONOCYTES PERCENT AUTO 6.1 % (0.0-15.0); NRBC ABSOLUTE 0 K/uL; PLATELET COUNT,PLT 150 K/uL (150-400); RED BLOOD CELL COUNT 4.41 M/uL (4.30-5.90); WHITE BLOOD CELL COUNT,WBC 7.16 K/uL (4.0-11.0)
[2023-01-17 07:10] LABS: CALCIUM 8.5 mg/dL (8.5-10.1); EST CRCL DRUG DOSING (CG) 48.28 mL/min; MAGNESIUM 1.7 mg/dL (1.8-2.4); POTASSIUM,K 3.2 mmol/L (3.5-5.1)
[2023-01-17] MEDS: Insulin Aspart 100 Units/ML 3 ML Pen SUBCUT SCH ×3 (07:24→19:14)
[2023-01-17] MEDS ORDERED: Magnesium Sulfate/Water 2 GM in Premix Bag 1 BAG IV ONE (08:18)
[2023-01-17] MEDS: Acetaminophen 325 MG Tab PO SCH ×3 (08:45→17:41)
[2023-01-17] MEDS: Spironolactone 25 MG Tab PO SCH (08:45)
[2023-01-17] MEDS: Potassium Chloride 20 MEQ Tab.ER PO SCH ×2 (08:46→13:13)
[2023-01-17] MEDS: Mirabegron 25 MG Tab.Er PO SCH (08:46)
[2023-01-17] MEDS: Sertraline 100 MG Tab PO SCH (17:40)
[2023-01-17] MEDS: Azithromycin 500 MG in Sodium Chloride 0.9% 250 ML IV SCH (17:40)
[2023-01-17] MEDS: atorvaSTATin 10 MG Tab PO SCH (20:02)
[2023-01-17] MEDS: Levothyroxine 112 MCG Tab PO SCH (20:02)
[2023-01-17] MEDS: Insulin Glargine,Hum.Rec.Anlog 100 UNIT/ML 3 ML Pen SUBCUT SCH (20:04)
[2023-01-18] MEDS: Nystatin Susp 100,000 Unit/ML 5 ML UD Cup PO SCH ×2 (00:27→06:43)
[2023-01-18] MEDS: Piperacillin/Tazobactam 4.5 GM in Sodium Chloride 0.9% 100 ML IV SCH ×2 (03:26→11:33)
[2023-01-18 06:14] LABS: BASOPHILS PERCENT AUTO 0.6 % (0.0-1.5); EOSINOPHILS ABSOLUTE AUTO 0.3 K/uL (0.0-0.7); EOSINOPHILS PERCENT AUTO 5.6 % (0.0-7.0); HEMATOCRIT 33.8 % (36.0-46.0); HEMOGLOBIN 10.8 g/dL (12.0-16.0); LYMPHOCYTES ABSOLUTE AUTO 1.6 K/uL (0.6-2.4); LYMPHOCYTES PERCENT AUTO 30.1 % (16.0-40.0); MEAN CORPUSCULAR VOLUME 81.4 fL (80.0-98.0); MONOCYTES ABSOLUTE AUTO 0.3 K/uL (0.0-0.8); MONOCYTES PERCENT AUTO 5.6 % (0.0-15.0); NEUTROPHILS ABSOLUTE AUTO 3.1 K/uL (1.4-5.7); NEUTROPHILS PERCENT AUTO 58.1 % (48.0-80.0); NRBC ABSOLUTE 0 K/uL; PLATELET COUNT,PLT 119 K/uL (150-400); RED BLOOD CELL COUNT 4.15 M/uL (4.30-5.90); WHITE BLOOD CELL COUNT,WBC 5.38 K/uL (4.0-11.0)
[2023-01-18] MEDS: Omeprazole 20 MG Cap.CR PO SCH (06:43)
[2023-01-18 06:45] LABS: A/G RATIO 0.5 (0.9-1.6); ALBUMIN 2.1 g/dL (3.4-5.0); BILIRUBIN TOTAL 0.6 mg/dL (0.2-1.0); CALCIUM 8.6 mg/dL (8.5-10.1); EST CRCL DRUG DOSING (CG) 48.28 mL/min; POTASSIUM,K 3.8 mmol/L (3.5-5.1); PROTEIN TOTAL,TP 6.7 g/dL (6.4-8.2)
[2023-01-18] MEDS: Insulin Aspart 100 Units/ML 3 ML Pen SUBCUT SCH ×2 (07:30→11:33)
[2023-01-18] MEDS: Spironolactone 25 MG Tab PO SCH (08:53)
[2023-01-18] MEDS: Mirabegron 25 MG Tab.Er PO SCH (08:55)
[2023-01-18] MEDS: Acetaminophen 325 MG Tab PO SCH (08:58)
[2023-01-18] MEDS ORDERED: Fluconazole 150 MG Tab PO ONE (10:30)
[2023-01-18] MEDS ORDERED: Acetaminophen/HYDROcodone 325-5 MG Tab PO ONE (10:40)
[2023-01-18 11:02] VITALS: BP 136/67; PULSE 85
== END 2023-01-18 12:16 | disposition home health service (06) | DRG 871 ==
LOC: MW.ED 12:40 → MW.MS 15:22 → MW.ICU 01-13 06:28 → MW.MS 01-14 15:21
PROVIDERS: ADMIT Internal Medicine; ATTEND Internal Medicine
DX: A41.51 Sepsis due to Escherichia coli [E. coli] (principal); A41.9 Sepsis, unspecified organism; G93.41 Metabolic encephalopathy; J96.01 Acute respiratory failure with hypoxia; J18.9 Pneumonia, unspecified organism; N30.00 Acute cystitis without hematuria; B37.0 Candidal stomatitis; C20 Malignant neoplasm of rectum; N17.9 Acute kidney failure, unspecified; R65.20 Severe sepsis without septic shock; D69.6 Thrombocytopenia, unspecified; M06.9 Rheumatoid arthritis, unspecified; M81.0 Age-related osteoporosis without current pathological fracture; I10 Essential (primary) hypertension; R32 Unspecified urinary incontinence; G43.909 Migraine, unspecified, not intractable, without status migrainosus; F32.A Depression, unspecified; N39.0 Urinary tract infection, site not specified; K74.60 Unspecified cirrhosis of liver; N19 Unspecified kidney failure; E83.42 Hypomagnesemia; M19.90 Unspecified osteoarthritis, unspecified site; E11.42 Type 2 diabetes mellitus with diabetic polyneuropathy; Z98.49 Cataract extraction status, unspecified eye; Z90.49 Acquired absence of other specified parts of digestive tract; Z88.8 Allergy status to other drugs, medicaments and biological substances; Z79.4 Long term (current) use of insulin; Z88.2 Allergy status to sulfonamides; I25.2 Old myocardial infarction; D75.839 Thrombocytosis, unspecified; Z98.890 Other specified postprocedural states; E11.9 Type 2 diabetes mellitus without complications; E03.9 Hypothyroidism, unspecified; E78.00 Pure hypercholesterolemia, unspecified; K21.9 Gastro-esophageal reflux disease without esophagitis; Z79.899 Other long term (current) drug therapy
CPT/HCPCS: 0240U; 0241U; 36415; 36600; 70450; 71045; 71046; 74176; 80048; 80053; 81001; 82803; 82947; 83605; 83735; 83880; 84100; 84484; 85025; 85610; 87040; 87077; 87086; 87088; 87154; 87186; 87324; 87899; 93005; 93306; 94640; 96361; 96365; 96367; 96368; 97162; 97530; 99291; 99292; 93010; 99223; 99232; 99238; A9270-GY; J0456; J0696; J1815-GY; J1940; J2405; J2543; J3475; J3490; J7030; J7050; J7620-GY

== ENCOUNTER 2023-06-05 09:09 | Emergency (ER) | payer MEDICARE, OTHER, BC ==
[2023-06-05] MEDS ORDERED: Benzonatate 100 MG Cap PO ONE (11:32)
[2023-06-05 11:35] LABS: BASOPHILS ABSOLUTE AUTO 0.02 K/uL (0.00-0.20); BASOPHILS PERCENT AUTO 0.4 % (0.0-1.0); EOSINOPHILS ABSOLUTE AUTO 0.26 K/uL (0.00-0.45); EOSINOPHILS PERCENT AUTO 5.4 % (0.0-6.0); HEMATOCRIT 36.7 % (37.0-47.0); HEMOGLOBIN 11.9 g/dL (12.0-16.0); IMMATURE GRAN ABSOLUTE AUTO 0.01 K/uL (0.00-0.05); IMMATURE GRAN PERCENT AUTO 0.2 % (0.0-0.4); LYMPHOCYTES ABSOLUTE AUTO 1.26 K/uL (1.00-4.80); LYMPHOCYTES PERCENT AUTO 26.1 % (24.0-44.0); MEAN CORPUSCULAR HEMOGLOBIN 27.2 pg (28.0-32.0); MEAN CORPUSCULAR HGB CONC 32.4 g/dL (32.0-36.0); MEAN CORPUSCULAR VOLUME 83.8 fL (83.0-99.0); MEAN PLATELET VOLUME 11.1 fL (9.4-12.3); MONOCYTES PERCENT AUTO 8.3 % (0.0-8.0); NEUTROPHILS ABSOLUTE AUTO 2.87 K/uL (1.80-7.70); NEUTROPHILS PERCENT AUTO 59.6 % (41.0-71.0); PLATELET COUNT,PLT 76 K/uL (150-400); RED BLOOD CELL COUNT 4.38 M/uL (4.10-5.30); WHITE BLOOD CELL COUNT,WBC 4.82 K/uL (3.9-11.3)
[2023-06-05 12:13] LABS: POTASSIUM,K 4.1 mmol/L (3.5-5.1)
[2023-06-05 12:16] LABS: A/G RATIO 0.6 (0.9-1.6); ALBUMIN 2.7 g/dL (3.4-5.0); BILIRUBIN TOTAL 0.6 mg/dL (0.2-1.0); CALCIUM 8.7 mg/dL (8.5-10.1); CARBON DIOXIDE,CO2 24.6 mmol/L (21.0-32.0); EST CRCL DRUG DOSING (CG) 48.28 mL/min; PROTEIN TOTAL,TP 7.2 g/dL (6.4-8.2)
[2023-06-05 14:24] VITALS: BP 110/63; PULSE 77
== END 2023-06-05 13:00 | disposition home or self-care (01) ==
LOC: MW.ED 09:09
DX: M25.552 Pain in left hip (principal); E78.00 Pure hypercholesterolemia, unspecified; I25.2 Old myocardial infarction; K21.9 Gastro-esophageal reflux disease without esophagitis; E11.9 Type 2 diabetes mellitus without complications; E03.9 Hypothyroidism, unspecified; Z90.49 Acquired absence of other specified parts of digestive tract; Z79.899 Other long term (current) drug therapy; Z88.8 Allergy status to other drugs, medicaments and biological substances; Z88.1 Allergy status to other antibiotic agents; Z88.5 Allergy status to narcotic agent; Z88.2 Allergy status to sulfonamides; Z88.6 Allergy status to analgesic agent
CPT/HCPCS: 36415; 72131; 73700; 80053; 85025; 99284; A9270; 99283

== ENCOUNTER 2023-10-17 18:41 | Inpatient (IN) | payer MEDICARE, OTHER ==
[2023-10-17] MEDS: Sodium Chloride 0.9% 1,000 ML IV ONE (19:25)
[2023-10-17] MEDS: Ondansetron 4 MG/2 ML SDV IVPUSH ONE (19:26)
[2023-10-17] MEDS: Ketorolac 30 MG/ML SDV IVPUSH ONE (19:26)
[2023-10-17] MEDS: Lidocaine 4% 1 each Patch TOP SCH (19:26)
[2023-10-17] MEDS: fentaNYL 50 MCG/ML SDV IVPUSH ONE (19:26)
[2023-10-17] MEDS: Sodium Chloride 0.9% 2.5 ML Syringe FLUSH PRN (19:27)
[2023-10-17] MEDS: Sodium Chloride 0.9% 10 ML Syringe FLUSH PRN (19:27)
[2023-10-17] MEDS: Orphenadrine 60 MG/2 ML Inj IV ONE (19:27)
[2023-10-17 19:40] LABS: BASOPHILS ABSOLUTE AUTO 0.03 K/uL (0.00-0.20); BASOPHILS PERCENT AUTO 0.3 % (0.0-1.0); EOSINOPHILS ABSOLUTE AUTO 0.45 K/uL (0.00-0.45); EOSINOPHILS PERCENT AUTO 4.6 % (0.0-6.0); HEMATOCRIT 30.3 % (37.0-47.0); HEMOGLOBIN 9.9 g/dL (12.0-16.0); IMMATURE GRAN ABSOLUTE AUTO 0.04 K/uL (0.00-0.05); IMMATURE GRAN PERCENT AUTO 0.4 % (0.0-0.4); LYMPHOCYTES ABSOLUTE AUTO 1.42 K/uL (1.00-4.80); LYMPHOCYTES PERCENT AUTO 14.6 % (24.0-44.0); MEAN CORPUSCULAR HEMOGLOBIN 24.3 pg (28.0-32.0); MEAN CORPUSCULAR HGB CONC 32.7 g/dL (32.0-36.0); MEAN CORPUSCULAR VOLUME 74.4 fL (83.0-99.0); MEAN PLATELET VOLUME 12.1 fL (9.4-12.3); MONOCYTES ABSOLUTE AUTO 0.46 K/uL (0.00-0.80); MONOCYTES PERCENT AUTO 4.7 % (0.0-8.0); NEUTROPHILS ABSOLUTE AUTO 7.34 K/uL (1.80-7.70); NEUTROPHILS PERCENT AUTO 75.4 % (41.0-71.0); PLATELET COUNT,PLT 163 K/uL (150-400); RED BLOOD CELL COUNT 4.07 M/uL (4.10-5.30); WHITE BLOOD CELL COUNT,WBC 9.74 K/uL (3.9-11.3)
[2023-10-17 20:01] LABS: A/G RATIO 0.4 (0.9-1.6); ALBUMIN 2.3 g/dL (3.4-5.0); BILIRUBIN TOTAL 0.5 mg/dL (0.2-1.0); CALCIUM 8.7 mg/dL (8.5-10.1); CARBON DIOXIDE,CO2 24.7 mmol/L (21.0-32.0); CREATININE 1.1 mg/dL (0.6-1.0); EST CRCL DRUG DOSING (CG) 43.2 mL/min; POTASSIUM,K 3.9 mmol/L (3.5-5.1); PROTEIN TOTAL,TP 8.1 g/dL (6.4-8.2)
[2023-10-17 20:47] LABS: BILIRUBIN,URINE NEGATIVE (NEGATIVE); COLOR,URINE YELLOW; GLUCOSE,URINE NEGATIVE (NEGATIVE); KETONES,URINE NEGATIVE (NEGATIVE); LEUKOCYTE ESTERASE,URINE MODERATE (NEGATIVE); NITRITE,URINE NEGATIVE (NEGATIVE); OCCULT BLOOD,URINE SMALL (NEGATIVE); PROTEIN,URINE NEGATIVE (NEGATIVE); UROBILINOGEN,URINE 0.2 EU/dL (<2.0)
[2023-10-17 20:58] LABS: APPEARANCE,URINE HAZY
[2023-10-17 20:59] LABS: EPITHELIAL CELLS,URINE RARE (NONE-FEW)
[2023-10-17 21:00] LABS: BACTERIA,URINE RARE (NEGATIVE)
[2023-10-17] MEDS: cefTRIAXone 1 GM in Sodium Chloride 0.9% 50 ML IV ONE (22:11)
[2023-10-17] MEDS ORDERED: Melatonin 3 MG Tab PO PRN (22:21)
[2023-10-17] MEDS ORDERED: Acetaminophen 650 MG Supp RECTAL PRN (22:21)
[2023-10-17] MEDS ORDERED: 50% Dextrose in Water 50 ML Syringe IVPUSH PRN (22:25)
[2023-10-17] MEDS ORDERED: Glucagon,Human Recombinant 1 MG Vial IM PRN (22:25)
[2023-10-17 23:02] LABS: CALCIUM 8.2 mg/dL (8.5-10.1); CARBON DIOXIDE,CO2 26.5 mmol/L (21.0-32.0); EST CRCL DRUG DOSING (CG) 47.53 mL/min; POTASSIUM,K 3.8 mmol/L (3.5-5.1)
[2023-10-18] MEDS: Levofloxacin/Dextrose 5%-Water 750 MG in Premix Bag 1 BAG IV SCH (00:30)
[2023-10-18] MEDS: Insulin Aspart 100 Units/ML 3 ML Pen SUBCUT SCH (00:38)
[2023-10-18] MEDS: Acetaminophen 325 MG Tab PO PRN (01:14)
[2023-10-18 02:54] LABS: CALCIUM 8.1 mg/dL (8.5-10.1); CARBON DIOXIDE,CO2 28.4 mmol/L (21.0-32.0); EST CRCL DRUG DOSING (CG) 47.53 mL/min; POTASSIUM,K 3.9 mmol/L (3.5-5.1)
[2023-10-18 06:35] LABS: HEMATOCRIT 28.4 % (37.0-47.0); MEAN CORPUSCULAR HEMOGLOBIN 24.3 pg (28.0-32.0); MEAN CORPUSCULAR HGB CONC 31.7 g/dL (32.0-36.0); MEAN CORPUSCULAR VOLUME 76.5 fL (83.0-99.0); MEAN PLATELET VOLUME 11.3 fL (9.4-12.3); PLATELET COUNT,PLT 157 K/uL (150-400); RED BLOOD CELL COUNT 3.71 M/uL (4.10-5.30); WHITE BLOOD CELL COUNT,WBC 7.37 K/uL (3.9-11.3)
[2023-10-18 06:53] LABS: CALCIUM 8.3 mg/dL (8.5-10.1); CARBON DIOXIDE,CO2 26.7 mmol/L (21.0-32.0); EST CRCL DRUG DOSING (CG) 47.53 mL/min; POTASSIUM,K 3.7 mmol/L (3.5-5.1)
[2023-10-18] MEDS: busPIRone 5 MG Tab PO SCH (08:56)
[2023-10-18] MEDS: Morphine 30 MG Tab.ER PO SCH (08:57)
[2023-10-18] MEDS: Cyanocobalamin (Vitamin B12) 500 MCG Tab PO SCH (08:59)
[2023-10-18] MEDS: Cholecalciferol (Vitamin D3) 25 MCG Tab PO SCH (09:00)
[2023-10-18] MEDS ORDERED: busPIRone 15 MG Tab PO SCH (09:00)
[2023-10-18] MEDS: Venlafaxine 37.5 MG Cap.ER PO SCH (09:01)
[2023-10-18] MEDS: atorvaSTATin 10 MG Tab PO SCH (09:01)
[2023-10-18] MEDS ORDERED: traZODone 50 MG Tab PO PRN (09:33)
[2023-10-18] MEDS ORDERED: Naloxone 0.4 MG/ML SDV IVPUSH PRN (09:43)
[2023-10-18] MEDS: HYDROmorphone 0.5 MG/0.5 ML Syringe IVPUSH ONE (10:07)
[2023-10-18] MEDS: Magnesium Sulfate/Water 2 GM in Premix Bag 1 BAG IV ONE (10:11)
[2023-10-18 10:56] LABS: CALCIUM 8.3 mg/dL (8.5-10.1); CARBON DIOXIDE,CO2 25.1 mmol/L (21.0-32.0); CREATININE 1.1 mg/dL (0.6-1.0); EST CRCL DRUG DOSING (CG) 43.2 mL/min; POTASSIUM,K 3.6 mmol/L (3.5-5.1)
[2023-10-18] MEDS: Heparin Sodium 5,000 Units/ML Vial SUBCUT SCH (10:56)
[2023-10-18] MEDS: Cyclobenzaprine 10 MG Tab PO PRN (10:57)
[2023-10-18] MEDS: oxyCODONE 5 MG Tab PO PRN (13:53)
[2023-10-18] MEDS: Nystatin Topical Powder 15 GM Bottle TOP SCH (15:24)
[2023-10-18] MEDS ORDERED: Sertraline 100 MG Tab PO SCH (18:00)
[2023-10-18] MEDS: Ascorbic Acid 500 MG Tab PO SCH (18:18)
[2023-10-18] MEDS: Lidocaine 4% 1 each Patch TOP SCH (18:18)
[2023-10-18] MEDS: Levothyroxine 112 MCG Tab PO SCH (20:01)
[2023-10-19 05:33] LABS: HEMATOCRIT 27.1 % (37.0-47.0); HEMOGLOBIN 8.9 g/dL (12.0-16.0); MEAN CORPUSCULAR HEMOGLOBIN 24.7 pg (28.0-32.0); MEAN CORPUSCULAR HGB CONC 32.8 g/dL (32.0-36.0); MEAN CORPUSCULAR VOLUME 75.1 fL (83.0-99.0); MEAN PLATELET VOLUME 10.9 fL (9.4-12.3); PLATELET COUNT,PLT 144 K/uL (150-400); RED BLOOD CELL COUNT 3.61 M/uL (4.10-5.30); WHITE BLOOD CELL COUNT,WBC 6.55 K/uL (3.9-11.3)
[2023-10-19] MEDS: Benzocaine 20% Topical Spray UD MUCMEM PRN (07:41)
[2023-10-19 08:05] LABS: CALCIUM 8.2 mg/dL (8.5-10.1); CARBON DIOXIDE,CO2 28.4 mmol/L (21.0-32.0); CREATININE 0.9 mg/dL (0.6-1.0); EST CRCL DRUG DOSING (CG) 52.81 mL/min; MAGNESIUM 1.5 mg/dL (1.8-2.4); POTASSIUM,K 3.8 mmol/L (3.5-5.1)
[2023-10-19] MEDS: Polyethylene Glycol 3350 Powder 17 GM Packet PO PRN (10:10)
[2023-10-19] MEDS: Nystatin Susp 100,000 Unit/ML 5 ML UD Cup PO SCH (11:45)
[2023-10-19] MEDS: Magnesium Sulfate/Water 2 GM in Premix Bag 1 BAG IV ONE (12:20)
[2023-10-19] MEDS: Methocarbamol 750 MG Tab PO SCH (12:50)
[2023-10-19] MEDS: Acetaminophen/oxyCODONE 325-10 MG Tab PO SCH (12:50)
[2023-10-19] MEDS: Trospium 20 MG Tab PO SCH (12:52)
[2023-10-19] MEDS: Furosemide 40 MG/4 ML VIAL IVPUSH SCH (15:29)
[2023-10-19] MEDS: Sodium Ferric Gluconate Cmplex 125 MG in Sodium Chloride 0.9% 100 ML IV SCH (16:27)
[2023-10-20 06:05] LABS: HEMATOCRIT 28.1 % (37.0-47.0); MEAN CORPUSCULAR HEMOGLOBIN 24.3 pg (28.0-32.0); MEAN CORPUSCULAR VOLUME 75.7 fL (83.0-99.0); MEAN PLATELET VOLUME 11.1 fL (9.4-12.3); PLATELET COUNT,PLT 163 K/uL (150-400); RED BLOOD CELL COUNT 3.71 M/uL (4.10-5.30); WHITE BLOOD CELL COUNT,WBC 15.31 K/uL (3.9-11.3)
[2023-10-20 06:26] LABS: CALCIUM 8.1 mg/dL (8.5-10.1); CARBON DIOXIDE,CO2 29.5 mmol/L (21.0-32.0); CREATININE 1.2 mg/dL (0.6-1.0); EST CRCL DRUG DOSING (CG) 39.6 mL/min; MAGNESIUM 1.4 mg/dL (1.8-2.4); POTASSIUM,K 3.4 mmol/L (3.5-5.1)
[2023-10-20] MEDS: Ascorbic Acid 500 MG Tab PO SCH (09:05)
[2023-10-20] MEDS: Magnesium Sulfate/Water 2 GM in Premix Bag 1 BAG IV ONE (10:17)
[2023-10-20] MEDS: Potassium Chloride 20 MEQ Tab.ER PO ONE (10:20)
[2023-10-20] MEDS: HYDROmorphone 0.5 MG/0.5 ML Syringe IVPUSH PRN (13:01)
[2023-10-20] MEDS: Piperacillin/Tazobactam 4.5 GM in Sodium Chloride 0.9% 100 ML IV ONE (13:19)
[2023-10-20] MEDS: Sodium Chloride 0.9% 100 ML ONE (14:19)
[2023-10-20] MEDS: Doxycycline 100 MG in Sodium Chloride 0.9% 100 ML IV SCH (14:37)
[2023-10-20] MEDS: Piperacillin/Tazobactam 4.5 GM in Sodium Chloride 0.9% 100 ML IV SCH ×2 (19:12→20:12)
[2023-10-20] MEDS: Furosemide 40 MG/4 ML VIAL IVPUSH SCH (20:45)
[2023-10-21] MEDS: Doxycycline 100 MG in Sodium Chloride 0.9% 100 ML IV SCH (01:37)
[2023-10-21 05:42] LABS: HEMATOCRIT 26.7 % (37.0-47.0); HEMOGLOBIN 8.5 g/dL (12.0-16.0); MEAN CORPUSCULAR HEMOGLOBIN 24.1 pg (28.0-32.0); MEAN CORPUSCULAR HGB CONC 31.8 g/dL (32.0-36.0); MEAN CORPUSCULAR VOLUME 75.6 fL (83.0-99.0); MEAN PLATELET VOLUME 11.3 fL (9.4-12.3); PLATELET COUNT,PLT 152 K/uL (150-400); RED BLOOD CELL COUNT 3.53 M/uL (4.10-5.30)
[2023-10-21 06:01] LABS: CALCIUM 8.1 mg/dL (8.5-10.1); CARBON DIOXIDE,CO2 28.2 mmol/L (21.0-32.0); EST CRCL DRUG DOSING (CG) 47.53 mL/min; MAGNESIUM 1.3 mg/dL (1.8-2.4); POTASSIUM,K 3.6 mmol/L (3.5-5.1)
[2023-10-21] MEDS: Sodium Chloride 1 GM Tab PO SCH (13:40)
[2023-10-21] MEDS: Sennosides 8.6 MG Tab PO SCH (13:40)
[2023-10-21] MEDS: Magnesium Sulfate/Water 2 GM in Premix Bag 1 BAG IV ONE (13:45)
[2023-10-21] MEDS: Polyethylene Glycol 3350 Powder 17 GM Packet PO SCH (13:47)
[2023-10-22 05:47] LABS: BASOPHILS ABSOLUTE AUTO 0.04 K/uL (0.00-0.20); BASOPHILS PERCENT AUTO 0.3 % (0.0-1.0); EOSINOPHILS ABSOLUTE AUTO 0.55 K/uL (0.00-0.45); EOSINOPHILS PERCENT AUTO 4.5 % (0.0-6.0); HEMATOCRIT 27.2 % (37.0-47.0); HEMOGLOBIN 8.7 g/dL (12.0-16.0); IMMATURE GRAN ABSOLUTE AUTO 0.33 K/uL (0.00-0.05); IMMATURE GRAN PERCENT AUTO 2.7 % (0.0-0.4); LYMPHOCYTES ABSOLUTE AUTO 1.38 K/uL (1.00-4.80); LYMPHOCYTES PERCENT AUTO 11.3 % (24.0-44.0); MEAN CORPUSCULAR HEMOGLOBIN 24.2 pg (28.0-32.0); MEAN CORPUSCULAR VOLUME 75.6 fL (83.0-99.0); MEAN PLATELET VOLUME 11.3 fL (9.4-12.3); MONOCYTES ABSOLUTE AUTO 0.61 K/uL (0.00-0.80); NEUTROPHILS ABSOLUTE AUTO 9.31 K/uL (1.80-7.70); NEUTROPHILS PERCENT AUTO 76.2 % (41.0-71.0); PLATELET COUNT,PLT 146 K/uL (150-400); WHITE BLOOD CELL COUNT,WBC 12.22 K/uL (3.9-11.3)
[2023-10-22 06:09] LABS: CARBON DIOXIDE,CO2 29.9 mmol/L (21.0-32.0); CREATININE 0.9 mg/dL (0.6-1.0); EST CRCL DRUG DOSING (CG) 52.81 mL/min; MAGNESIUM 1.3 mg/dL (1.8-2.4); POTASSIUM,K 3.1 mmol/L (3.5-5.1)
[2023-10-22] MEDS: Potassium Chloride 20 MEQ Tab.ER PO ONE (10:10)
[2023-10-22] MEDS: Magnesium Sulfate/Water 2 GM in Premix Bag 1 BAG IV SCH (10:10)
[2023-10-22] MEDS: Potassium Chloride 10 MEQ Tab.ER PO ONE (10:48)
[2023-10-23] MEDS: Albuterol/Ipratropium 3.0-0.5 MG/3 ML Neb Soln NEB PRN (00:44)
[2023-10-23] MEDS: Iopamidol 755 MG/ML 500 ML Multipack Bottle IVPUSH STA (01:40)
[2023-10-23] MEDS: Ondansetron 4 MG/2 ML SDV IVPUSH PRN (02:41)
[2023-10-23 05:30] LABS: BASOPHILS ABSOLUTE AUTO 0.04 K/uL (0.00-0.20); BASOPHILS PERCENT AUTO 0.3 % (0.0-1.0); EOSINOPHILS ABSOLUTE AUTO 0.23 K/uL (0.00-0.45); EOSINOPHILS PERCENT AUTO 1.7 % (0.0-6.0); HEMATOCRIT 28.5 % (37.0-47.0); HEMOGLOBIN 9.1 g/dL (12.0-16.0); IMMATURE GRAN ABSOLUTE AUTO 0.47 K/uL (0.00-0.05); IMMATURE GRAN PERCENT AUTO 3.5 % (0.0-0.4); LYMPHOCYTES ABSOLUTE AUTO 0.46 K/uL (1.00-4.80); LYMPHOCYTES PERCENT AUTO 3.4 % (24.0-44.0); MEAN CORPUSCULAR HEMOGLOBIN 24.5 pg (28.0-32.0); MEAN CORPUSCULAR HGB CONC 31.9 g/dL (32.0-36.0); MEAN CORPUSCULAR VOLUME 76.6 fL (83.0-99.0); MEAN PLATELET VOLUME 11.2 fL (9.4-12.3); MONOCYTES ABSOLUTE AUTO 0.58 K/uL (0.00-0.80); MONOCYTES PERCENT AUTO 4.3 % (0.0-8.0); NEUTROPHILS ABSOLUTE AUTO 11.79 K/uL (1.80-7.70); NEUTROPHILS PERCENT AUTO 86.8 % (41.0-71.0); PLATELET COUNT,PLT 138 K/uL (150-400); RED BLOOD CELL COUNT 3.72 M/uL (4.10-5.30); WHITE BLOOD CELL COUNT,WBC 13.57 K/uL (3.9-11.3)
[2023-10-23 06:08] LABS: A/G RATIO 0.3 (0.9-1.6); ALBUMIN 1.8 g/dL (3.4-5.0); BILIRUBIN TOTAL 0.8 mg/dL (0.2-1.0); CALCIUM 8.4 mg/dL (8.5-10.1); CARBON DIOXIDE,CO2 27.4 mmol/L (21.0-32.0); EST CRCL DRUG DOSING (CG) 47.53 mL/min; MAGNESIUM 1.8 mg/dL (1.8-2.4); POTASSIUM,K 3.3 mmol/L (3.5-5.1); PROTEIN TOTAL,TP 7.1 g/dL (6.4-8.2)
[2023-10-23] MEDS: Doxycycline 100 MG in Sodium Chloride 0.9% 100 ML IV SCH (10:16)
[2023-10-23] MEDS: Potassium Chloride 20 MEQ Tab.ER PO SCH (10:19)
[2023-10-23] MEDS ORDERED: Non-Formulary Medication 1 Each (Semaglutide [Ozempic] 1 MG/0.75 ML Pen.Injctr) SUBCUT SCH (14:30)
[2023-10-23] MEDS: Potassium Chloride 20 MEQ Tab.ER PO ONE (20:54)
[2023-10-24 05:51] LABS: BASOPHILS ABSOLUTE AUTO 0.03 K/uL (0.00-0.20); BASOPHILS PERCENT AUTO 0.3 % (0.0-1.0); EOSINOPHILS PERCENT AUTO 4.7 % (0.0-6.0); HEMATOCRIT 26.6 % (37.0-47.0); HEMOGLOBIN 8.7 g/dL (12.0-16.0); IMMATURE GRAN ABSOLUTE AUTO 0.27 K/uL (0.00-0.05); IMMATURE GRAN PERCENT AUTO 2.6 % (0.0-0.4); LYMPHOCYTES ABSOLUTE AUTO 0.96 K/uL (1.00-4.80); LYMPHOCYTES PERCENT AUTO 9.1 % (24.0-44.0); MEAN CORPUSCULAR HEMOGLOBIN 24.6 pg (28.0-32.0); MEAN CORPUSCULAR HGB CONC 32.7 g/dL (32.0-36.0); MEAN CORPUSCULAR VOLUME 75.1 fL (83.0-99.0); MEAN PLATELET VOLUME 11.2 fL (9.4-12.3); MONOCYTES ABSOLUTE AUTO 0.48 K/uL (0.00-0.80); MONOCYTES PERCENT AUTO 4.6 % (0.0-8.0); NEUTROPHILS ABSOLUTE AUTO 8.29 K/uL (1.80-7.70); NEUTROPHILS PERCENT AUTO 78.7 % (41.0-71.0); PLATELET COUNT,PLT 142 K/uL (150-400); RED BLOOD CELL COUNT 3.54 M/uL (4.10-5.30); WHITE BLOOD CELL COUNT,WBC 10.53 K/uL (3.9-11.3)
[2023-10-24 06:25] LABS: A/G RATIO 0.3 (0.9-1.6); ALBUMIN 1.6 g/dL (3.4-5.0); BILIRUBIN TOTAL 0.7 mg/dL (0.2-1.0); CALCIUM 8.1 mg/dL (8.5-10.1); CARBON DIOXIDE,CO2 27.9 mmol/L (21.0-32.0); EST CRCL DRUG DOSING (CG) 47.53 mL/min; MAGNESIUM 1.4 mg/dL (1.8-2.4); POTASSIUM,K 3.4 mmol/L (3.5-5.1); PROTEIN TOTAL,TP 6.8 g/dL (6.4-8.2)
[2023-10-24] MEDS: Magnesium Sulfate/Water 2 GM in Premix Bag 1 BAG IV ONE (10:41)
[2023-10-24] MEDS: Potassium Chloride 20 MEQ Tab.ER PO ONE (10:41)
[2023-10-24] MEDS: Bisacodyl 10 MG Supp RECTAL ONE (15:18)
[2023-10-24] MEDS: Furosemide 40 MG/4 ML VIAL IVPUSH SCH (20:41)
[2023-10-25 06:20] LABS: BASOPHILS ABSOLUTE AUTO 0.03 K/uL (0.00-0.20); BASOPHILS PERCENT AUTO 0.3 % (0.0-1.0); EOSINOPHILS ABSOLUTE AUTO 0.57 K/uL (0.00-0.45); EOSINOPHILS PERCENT AUTO 6.1 % (0.0-6.0); HEMATOCRIT 27.2 % (37.0-47.0); HEMOGLOBIN 8.8 g/dL (12.0-16.0); IMMATURE GRAN ABSOLUTE AUTO 0.18 K/uL (0.00-0.05); IMMATURE GRAN PERCENT AUTO 1.9 % (0.0-0.4); LYMPHOCYTES PERCENT AUTO 12.8 % (24.0-44.0); MEAN CORPUSCULAR HEMOGLOBIN 24.5 pg (28.0-32.0); MEAN CORPUSCULAR HGB CONC 32.4 g/dL (32.0-36.0); MEAN CORPUSCULAR VOLUME 75.8 fL (83.0-99.0); MEAN PLATELET VOLUME 10.4 fL (9.4-12.3); MONOCYTES ABSOLUTE AUTO 0.39 K/uL (0.00-0.80); MONOCYTES PERCENT AUTO 4.2 % (0.0-8.0); NEUTROPHILS PERCENT AUTO 74.7 % (41.0-71.0); PLATELET COUNT,PLT 145 K/uL (150-400); RED BLOOD CELL COUNT 3.59 M/uL (4.10-5.30); WHITE BLOOD CELL COUNT,WBC 9.37 K/uL (3.9-11.3)
[2023-10-25 06:56] LABS: A/G RATIO 0.3 (0.9-1.6); ALBUMIN 1.6 g/dL (3.4-5.0); BILIRUBIN TOTAL 0.7 mg/dL (0.2-1.0); CALCIUM 8.1 mg/dL (8.5-10.1); CARBON DIOXIDE,CO2 32.8 mmol/L (21.0-32.0); CREATININE 0.9 mg/dL (0.6-1.0); EST CRCL DRUG DOSING (CG) 52.81 mL/min; MAGNESIUM 1.5 mg/dL (1.8-2.4); POTASSIUM,K 3.8 mmol/L (3.5-5.1); PROTEIN TOTAL,TP 6.6 g/dL (6.4-8.2)
[2023-10-25 08:07] LABS: BORDETELLA PARAPERT IS1001 Not Detected (Not Detected)
[2023-10-25] MEDS: Magnesium Oxide 400 MG Tab PO ONE (09:01)
[2023-10-25 11:59] VITALS: BP 125/67; PULSE 96
== END 2023-10-25 12:42 | disposition home health service (06) | DRG 640 ==
LOC: MW.ED 18:41 → MW.MS 21:53
PROVIDERS: ADMIT Family Medicine; ATTEND Family Medicine
DX: E87.1 Hypo-osmolality and hyponatremia (principal); J18.9 Pneumonia, unspecified organism; N30.00 Acute cystitis without hematuria; N17.9 Acute kidney failure, unspecified; R41.0 Disorientation, unspecified; M81.0 Age-related osteoporosis without current pathological fracture; M06.9 Rheumatoid arthritis, unspecified; F32.9 Major depressive disorder, single episode, unspecified; E03.9 Hypothyroidism, unspecified; E78.00 Pure hypercholesterolemia, unspecified; K21.9 Gastro-esophageal reflux disease without esophagitis; Z75.8 Other problems related to medical facilities and other health care; M19.90 Unspecified osteoarthritis, unspecified site; G43.909 Migraine, unspecified, not intractable, without status migrainosus; E11.42 Type 2 diabetes mellitus with diabetic polyneuropathy; Z96.659 Presence of unspecified artificial knee joint; E86.0 Dehydration; E11.22 Type 2 diabetes mellitus with diabetic chronic kidney disease; N18.30 Chronic kidney disease, stage 3 unspecified; I12.9 Hypertensive chronic kidney disease with stage 1 through stage 4 chronic kidney disease, or unspecified chronic kidney disease; R33.9 Retention of urine, unspecified; M62.838 Other muscle spasm; K12.30 Oral mucositis (ulcerative), unspecified; R60.0 Localized edema; M54.9 Dorsalgia, unspecified; G89.29 Other chronic pain; Z85.040 Personal history of malignant carcinoid tumor of rectum; Z98.890 Other specified postprocedural states; Z97.8 Presence of other specified devices; Z88.2 Allergy status to sulfonamides; Z79.4 Long term (current) use of insulin; Z79.899 Other long term (current) drug therapy; Z79.891 Long term (current) use of opiate analgesic; I25.2 Old myocardial infarction; Z86.010 Personal history of colon polyps; Z85.038 Personal history of other malignant neoplasm of large intestine; Z98.49 Cataract extraction status, unspecified eye; Z90.89 Acquired absence of other organs; Z98.1 Arthrodesis status
CPT/HCPCS: 36415; 71045; 72131; 72192; 80053; 81001; 85025; 87086; 87088; 87186; 96361; 96374; 96375; 99285; A9270; J1885; J2360; J2405; J3010; J3490; J7030; 71046; 71046-26; 71275; 71275-26; 80048; 82550; 82947; 83540; 83605; 83735; 83880; 85027; 87040; 87486; 87581; 87633; 87641; 87651-QW; 92526-GN; 92610-GN; 93306; 97110-GP; 97162-GP; 97165-GO; 97530-GP; 99222; 99232; 99233; 99239; J0696; J1170; J1644; J1815-GY; J1940; J1956; J2543; J2916; J3475; J7620-GY; Q9967

== ENCOUNTER 2024-02-23 20:09 | Emergency (ER) | payer MEDICARE, OTHER ==
[2024-02-23 22:07] VITALS: BP 136/80; PULSE 92
== END 2024-02-23 21:05 | disposition home or self-care (01) ==
LOC: MW.ED 20:09
DX: T83.098A Other mechanical complication of other urinary catheter, initial encounter (principal); E11.40 Type 2 diabetes mellitus with diabetic neuropathy, unspecified; E03.9 Hypothyroidism, unspecified; E78.00 Pure hypercholesterolemia, unspecified; I25.2 Old myocardial infarction; Z79.4 Long term (current) use of insulin; Z79.899 Other long term (current) drug therapy; Z88.2 Allergy status to sulfonamides; Z88.8 Allergy status to other drugs, medicaments and biological substances; Z75.8 Other problems related to medical facilities and other health care
CPT/HCPCS: 51702; 99283

== ENCOUNTER 2024-03-08 19:29 | Emergency (ER) | payer MEDICARE, OTHER ==
[2024-03-08 20:12] VITALS: BP 133/74; PULSE 99
== END 2024-03-08 20:33 | disposition home or self-care (01) ==
LOC: MW.ED 19:29
DX: Z46.6 Encounter for fitting and adjustment of urinary device (principal); E78.00 Pure hypercholesterolemia, unspecified; I25.2 Old myocardial infarction; E11.9 Type 2 diabetes mellitus without complications; E03.9 Hypothyroidism, unspecified; Z90.49 Acquired absence of other specified parts of digestive tract; Z79.4 Long term (current) use of insulin; Z79.899 Other long term (current) drug therapy; Z88.8 Allergy status to other drugs, medicaments and biological substances; Z88.2 Allergy status to sulfonamides; Z88.9 Allergy status to unspecified drugs, medicaments and biological substances; Z75.8 Other problems related to medical facilities and other health care
CPT/HCPCS: 51702; 99283

== ENCOUNTER 2024-05-24 11:20 | Emergency (ER) | payer MEDICARE, OTHER ==
[2024-05-24 11:38] VITALS: BP 129/76; PULSE 99
== END 2024-05-24 14:36 | disposition home or self-care (01) ==
LOC: MW.ED 11:20
DX: T83.098A Other mechanical complication of other urinary catheter, initial encounter (principal); Z75.8 Other problems related to medical facilities and other health care; E78.00 Pure hypercholesterolemia, unspecified; K21.9 Gastro-esophageal reflux disease without esophagitis; E11.9 Type 2 diabetes mellitus without complications; E03.9 Hypothyroidism, unspecified; Z90.49 Acquired absence of other specified parts of digestive tract; Z79.4 Long term (current) use of insulin; Z79.899 Other long term (current) drug therapy; Z79.890 Hormone replacement therapy; Z88.8 Allergy status to other drugs, medicaments and biological substances; Z88.2 Allergy status to sulfonamides
CPT/HCPCS: 51702; 99283

== ENCOUNTER 2024-07-07 19:36 | Inpatient (IN) | payer MEDICARE, OTHER ==
[2024-07-07] MEDS ORDERED: Sodium Chloride 0.9% 10 ML Syringe FLUSH PRN (20:27)
[2024-07-07] MEDS ORDERED: Sodium Chloride 0.9% 2.5 ML Syringe FLUSH PRN (20:27)
[2024-07-07] MEDS: Sodium Chloride 0.9% 1,000 ML IV ONE ×2 (20:47→20:49)
[2024-07-07] MEDS: Acetaminophen/oxyCODONE 325-5 MG Tab PO ONE (21:03)
[2024-07-07 21:10] LABS: BASOPHILS ABSOLUTE AUTO 0.02 K/uL (0.00-0.20); BASOPHILS PERCENT AUTO 0.3 % (0.0-1.0); EOSINOPHILS ABSOLUTE AUTO 0.16 K/uL (0.00-0.45); HEMATOCRIT 27.7 % (37.0-47.0); HEMOGLOBIN 8.9 g/dL (12.0-16.0); IMMATURE GRAN ABSOLUTE AUTO 0.05 K/uL (0.00-0.05); IMMATURE GRAN PERCENT AUTO 0.6 % (0.0-0.4); LYMPHOCYTES ABSOLUTE AUTO 0.92 K/uL (1.00-4.80); LYMPHOCYTES PERCENT AUTO 11.6 % (24.0-44.0); MEAN CORPUSCULAR HEMOGLOBIN 24.6 pg (28.0-32.0); MEAN CORPUSCULAR HGB CONC 32.1 g/dL (32.0-36.0); MEAN CORPUSCULAR VOLUME 76.5 fL (83.0-99.0); MONOCYTES ABSOLUTE AUTO 0.76 K/uL (0.00-0.80); MONOCYTES PERCENT AUTO 9.6 % (0.0-8.0); NEUTROPHILS ABSOLUTE AUTO 6.01 K/uL (1.80-7.70); NEUTROPHILS PERCENT AUTO 75.9 % (41.0-71.0); PLATELET COUNT,PLT 108 K/uL (150-400); RED BLOOD CELL COUNT 3.62 M/uL (4.10-5.30); WHITE BLOOD CELL COUNT,WBC 7.92 K/uL (3.9-11.3)
[2024-07-07 21:36] LABS: ALBUMIN 1.9 g/dL (3.4-5.0); BILIRUBIN TOTAL 0.6 mg/dL (0.2-1.0); CALCIUM 8.4 mg/dL (8.5-10.1); CARBON DIOXIDE,CO2 20.6 mmol/L (21.0-32.0); CREATININE 1.2 mg/dL (0.6-1.0); EST CRCL DRUG DOSING (CG) 36.75 mL/min; POTASSIUM,K 4.2 mmol/L (3.5-5.1); PROTEIN TOTAL,TP 7.4 g/dL (6.4-8.2)
[2024-07-07 21:37] LABS: A/G RATIO 0.4 (0.9-1.6)
[2024-07-07 21:41] LABS: LACTIC ACID 1.1 mmol/L (0.4-2.0)
[2024-07-07 22:54] LABS: APPEARANCE,URINE CLOUDY; BILIRUBIN,URINE NEGATIVE (NEGATIVE); COLOR,URINE YELLOW; GLUCOSE,URINE NEGATIVE (NEGATIVE); KETONES,URINE NEGATIVE (NEGATIVE); LEUKOCYTE ESTERASE,URINE LARGE (NEGATIVE); NITRITE,URINE NEGATIVE (NEGATIVE); OCCULT BLOOD,URINE LARGE (NEGATIVE); PROTEIN,URINE 100 mg/dL (NEGATIVE)
[2024-07-07 23:09] LABS: BACTERIA,URINE RARE (NEGATIVE); EPITHELIAL CELLS,URINE RARE (NONE-FEW); WBC,URINE 80-100 (0-5/HPF)
[2024-07-08] MEDS: cefTRIAXone 1 GM in Sodium Chloride 0.9% 50 ML IV ONE (00:21)
[2024-07-08] MEDS: Fluconazole 100 MG Tab PO SCH (00:21)
[2024-07-08] MEDS: Sodium Chloride 0.9% 1,000 ML IV ONE ×2 (00:22→01:34)
[2024-07-08] MEDS: VANCOmycin 2 GM/400 ML 2 GM in Premix Bag 1 BAG IV ONE (01:10)
[2024-07-08] MEDS ORDERED: Ondansetron 4 MG/2 ML SDV IVPUSH PRN (04:14)
[2024-07-08] MEDS: Norepinephrine Bit/D5W Premix 250 ML IV SCH (04:36)
[2024-07-08] MEDS: Sodium Chloride 0.9% 1,000 ML IV SCH (04:38)
[2024-07-08] MEDS: Acetaminophen/oxyCODONE 325-5 MG Tab PO PRN (05:07)
[2024-07-08 06:17] LABS: BASOPHILS ABSOLUTE AUTO 0.02 K/uL (0.00-0.20); BASOPHILS PERCENT AUTO 0.2 % (0.0-1.0); EOSINOPHILS ABSOLUTE AUTO 0.21 K/uL (0.00-0.45); EOSINOPHILS PERCENT AUTO 2.1 % (0.0-6.0); HEMOGLOBIN 9.2 g/dL (12.0-16.0); IMMATURE GRAN ABSOLUTE AUTO 0.05 K/uL (0.00-0.05); IMMATURE GRAN PERCENT AUTO 0.5 % (0.0-0.4); LYMPHOCYTES ABSOLUTE AUTO 1.28 K/uL (1.00-4.80); LYMPHOCYTES PERCENT AUTO 12.5 % (24.0-44.0); MEAN CORPUSCULAR HEMOGLOBIN 25.2 pg (28.0-32.0); MEAN CORPUSCULAR HGB CONC 32.9 g/dL (32.0-36.0); MEAN CORPUSCULAR VOLUME 76.7 fL (83.0-99.0); MEAN PLATELET VOLUME 11.4 fL (9.4-12.3); MONOCYTES ABSOLUTE AUTO 0.78 K/uL (0.00-0.80); MONOCYTES PERCENT AUTO 7.6 % (0.0-8.0); NEUTROPHILS PERCENT AUTO 77.1 % (41.0-71.0); PLATELET COUNT,PLT 124 K/uL (150-400); RED BLOOD CELL COUNT 3.65 M/uL (4.10-5.30); WHITE BLOOD CELL COUNT,WBC 10.24 K/uL (3.9-11.3)
[2024-07-08 06:39] LABS: A/G RATIO 0.4 (0.9-1.6); ALBUMIN 1.8 g/dL (3.4-5.0); BILIRUBIN TOTAL 0.6 mg/dL (0.2-1.0); CALCIUM 7.8 mg/dL (8.5-10.1); CARBON DIOXIDE,CO2 18.8 mmol/L (21.0-32.0); CREATININE 1.1 mg/dL (0.6-1.0); EST CRCL DRUG DOSING (CG) 43.2 mL/min; POTASSIUM,K 4.4 mmol/L (3.5-5.1)
[2024-07-08] MEDS ORDERED: 50% Dextrose in Water 50 ML Syringe IVPUSH PRN (08:42)
[2024-07-08] MEDS ORDERED: Glucagon,Human Recombinant 1 MG Vial IM PRN (08:42)
[2024-07-08 09:50] LABS: CORONAVIRUS COVID-19 NAA POSITIVE (NEGATIVE); INFLUENZA A NAA NEGATIVE (NEGATIVE); INFLUENZA B NAA NEGATIVE (NEGATIVE)
[2024-07-08 10:12] LABS: INR 1.44 (0.86-1.11)
[2024-07-08 10:37] LABS: LACTIC ACID 1.7 mmol/L (0.4-2.0)
[2024-07-08] MEDS: Pantoprazole 40 MG in Sodium Chloride 0.9% 10 ML IVPUSH ONE (10:50)
[2024-07-08] MEDS: Nirmatrelvir/Ritonavir 150 MG/100 MG Dose Pack (Renal Dose) PO SCH (11:28)
[2024-07-08] MEDS: Insulin Aspart 100 Units/ML 3 ML Pen SUBCUT SCH (12:20)
[2024-07-08] MEDS: Heparin Sodium 5,000 Units/ML Vial SUBCUT SCH (12:20)
[2024-07-08] MEDS: Nystatin Topical Powder 15 GM Bottle TOP SCH (14:39)
[2024-07-08] MEDS: Benzonatate 100 MG Cap PO PRN (18:03)
[2024-07-08] MEDS: Levothyroxine 112 MCG Tab PO SCH (20:14)
[2024-07-08] MEDS: Insulin Glargine,Human Rec. Analog 100 Units/ML 3 ML Pen SUBCUT SCH (20:14)
[2024-07-08] MEDS ORDERED: atorvaSTATin 10 MG Tab PO SCH (21:00)
[2024-07-08] MEDS: VANCOmycin 1.5 GM in Sodium Chloride 0.9% 250 ML IV SCH (22:09)
[2024-07-08] MEDS: cefTRIAXone 1 GM in Sodium Chloride 0.9% 50 ML IV SCH (23:54)
[2024-07-09 05:07] LABS: BORDETELLA PARAPERT IS1001 Not Detected (Not Detected)
[2024-07-09 07:20] LABS: BASOPHILS ABSOLUTE AUTO 0.01 K/uL (0.00-0.20); BASOPHILS PERCENT AUTO 0.1 % (0.0-1.0); EOSINOPHILS PERCENT AUTO 1.4 % (0.0-6.0); HEMOGLOBIN 8.3 g/dL (12.0-16.0); IMMATURE GRAN ABSOLUTE AUTO 0.02 K/uL (0.00-0.05); IMMATURE GRAN PERCENT AUTO 0.3 % (0.0-0.4); LYMPHOCYTES ABSOLUTE AUTO 1.01 K/uL (1.00-4.80); LYMPHOCYTES PERCENT AUTO 13.7 % (24.0-44.0); MEAN CORPUSCULAR HEMOGLOBIN 25.1 pg (28.0-32.0); MEAN CORPUSCULAR HGB CONC 33.2 g/dL (32.0-36.0); MEAN CORPUSCULAR VOLUME 75.5 fL (83.0-99.0); MEAN PLATELET VOLUME 10.7 fL (9.4-12.3); MONOCYTES ABSOLUTE AUTO 0.77 K/uL (0.00-0.80); MONOCYTES PERCENT AUTO 10.5 % (0.0-8.0); NEUTROPHILS ABSOLUTE AUTO 5.44 K/uL (1.80-7.70); PLATELET COUNT,PLT 119 K/uL (150-400); RED BLOOD CELL COUNT 3.31 M/uL (4.10-5.30); WHITE BLOOD CELL COUNT,WBC 7.35 K/uL (3.9-11.3)
[2024-07-09 07:24] LABS: A/G RATIO 0.3 (0.9-1.6); ALBUMIN 1.6 g/dL (3.4-5.0); BILIRUBIN TOTAL 0.7 mg/dL (0.2-1.0); CALCIUM 7.6 mg/dL (8.5-10.1); CARBON DIOXIDE,CO2 18.8 mmol/L (21.0-32.0); CREATININE 1.1 mg/dL (0.6-1.0); EST CRCL DRUG DOSING (CG) 43.2 mL/min; MAGNESIUM 1.6 mg/dL (1.8-2.4); PHOSPHORUS 2.9 mg/dL (2.6-4.7); POTASSIUM,K 3.7 mmol/L (3.5-5.1); PROTEIN TOTAL,TP 6.4 g/dL (6.4-8.2); VANCOMYCIN RANDOM 17.5 ug/mL
[2024-07-09] MEDS: Pantoprazole 40 MG Tab.CR PO SCH (07:50)
[2024-07-09] MEDS: Cefepime 2 GM in Sodium Chloride 0.9% 50 ML IV SCH (08:28)
[2024-07-09] MEDS: Sodium Chloride 0.9% 500 ML IV SCH (08:31)
[2024-07-09] MEDS: Piperacillin/Tazobactam 4.5 GM in Sodium Chloride 0.9% 100 ML IV ONE (10:02)
[2024-07-09] MEDS: Piperacillin/Tazobactam 4.5 GM in Sodium Chloride 0.9% 100 ML IV SCH (16:51)
[2024-07-09] MEDS ORDERED: GABAPENTIN TOP PRN (18:00)
[2024-07-09] MEDS ORDERED: BUPIVACAINE TOP PRN (18:00)
[2024-07-09] MEDS ORDERED: CLONIDINE TOP PRN (18:00)
[2024-07-09] MEDS ORDERED: AMITRIPTYLINE TOP PRN (18:00)
[2024-07-09] MEDS ORDERED: KETAMINE TOP PRN (18:00)
[2024-07-09] MEDS: Acetaminophen 500 MG Tab PO PRN (20:42)
[2024-07-09] MEDS: VANCOmycin 1.75 GM/350 ML 1.75 GM in Premix Bag 1 BAG IV SCH (22:03)
[2024-07-10 06:02] LABS: BASOPHILS ABSOLUTE AUTO 0.01 K/uL (0.00-0.20); BASOPHILS PERCENT AUTO 0.1 % (0.0-1.0); EOSINOPHILS ABSOLUTE AUTO 0.16 K/uL (0.00-0.45); EOSINOPHILS PERCENT AUTO 2.2 % (0.0-6.0); HEMATOCRIT 26.4 % (37.0-47.0); HEMOGLOBIN 8.6 g/dL (12.0-16.0); IMMATURE GRAN ABSOLUTE AUTO 0.05 K/uL (0.00-0.05); IMMATURE GRAN PERCENT AUTO 0.7 % (0.0-0.4); LYMPHOCYTES PERCENT AUTO 12.4 % (24.0-44.0); MEAN CORPUSCULAR HEMOGLOBIN 24.2 pg (28.0-32.0); MEAN CORPUSCULAR HGB CONC 32.6 g/dL (32.0-36.0); MEAN CORPUSCULAR VOLUME 74.2 fL (83.0-99.0); MEAN PLATELET VOLUME 11.3 fL (9.4-12.3); MONOCYTES ABSOLUTE AUTO 0.72 K/uL (0.00-0.80); MONOCYTES PERCENT AUTO 9.9 % (0.0-8.0); NEUTROPHILS ABSOLUTE AUTO 5.41 K/uL (1.80-7.70); NEUTROPHILS PERCENT AUTO 74.7 % (41.0-71.0); PLATELET COUNT,PLT 125 K/uL (150-400); RED BLOOD CELL COUNT 3.56 M/uL (4.10-5.30); WHITE BLOOD CELL COUNT,WBC 7.25 K/uL (3.9-11.3)
[2024-07-10 06:37] LABS: A/G RATIO 0.3 (0.9-1.6); ALBUMIN 1.5 g/dL (3.4-5.0); BILIRUBIN TOTAL 0.9 mg/dL (0.2-1.0); CALCIUM 8.2 mg/dL (8.5-10.1); CARBON DIOXIDE,CO2 17.7 mmol/L (21.0-32.0); EST CRCL DRUG DOSING (CG) 47.53 mL/min; MAGNESIUM 1.7 mg/dL (1.8-2.4); POTASSIUM,K 4.1 mmol/L (3.5-5.1); PROTEIN TOTAL,TP 6.4 g/dL (6.4-8.2)
[2024-07-10] MEDS: Magnesium Sulf/Wat 4 GM/100 mL 4 GM in Premix Bag 1 BAG IV ONE (07:48)
[2024-07-10] MEDS: Insulin Glargine,Human Rec. Analog 100 Units/ML 3 ML Pen SUBCUT SCH (13:41)
[2024-07-10 14:24] LABS: CALCIUM 8.2 mg/dL (8.5-10.1); CARBON DIOXIDE,CO2 18.6 mmol/L (21.0-32.0); CREATININE 1.1 mg/dL (0.6-1.0); EST CRCL DRUG DOSING (CG) 43.2 mL/min; POTASSIUM,K 4.2 mmol/L (3.5-5.1)
[2024-07-10] MEDS: VANCOmycin 1 GM in Sodium Chloride 0.9% 250 ML IV SCH ×2 (14:45→17:49)
[2024-07-10] MEDS: Gadoteridol 279.3 MG/ML 20 ML SDV IVPUSH ONE (15:14)
[2024-07-10] MEDS: Piperacillin/Tazobactam 4.5 GM in Sodium Chloride 0.9% 100 ML IV SCH (20:14)
[2024-07-11] MEDS: BUPIVACAINE TOP PRN (02:44)
[2024-07-11] MEDS: GABAPENTIN TOP PRN (02:44)
[2024-07-11] MEDS: AMITRIPTYLINE TOP PRN (02:44)
[2024-07-11] MEDS: KETAMINE TOP PRN (02:44)
[2024-07-11] MEDS: CLONIDINE TOP PRN (02:44)
[2024-07-11 06:03] LABS: BASOPHILS ABSOLUTE AUTO 0.03 K/uL (0.00-0.20); BASOPHILS PERCENT AUTO 0.4 % (0.0-1.0); EOSINOPHILS ABSOLUTE AUTO 0.26 K/uL (0.00-0.45); EOSINOPHILS PERCENT AUTO 3.4 % (0.0-6.0); HEMATOCRIT 24.4 % (37.0-47.0); HEMOGLOBIN 8.1 g/dL (12.0-16.0); IMMATURE GRAN ABSOLUTE AUTO 0.12 K/uL (0.00-0.05); IMMATURE GRAN PERCENT AUTO 1.6 % (0.0-0.4); LYMPHOCYTES ABSOLUTE AUTO 1.29 K/uL (1.00-4.80); LYMPHOCYTES PERCENT AUTO 16.7 % (24.0-44.0); MEAN CORPUSCULAR HEMOGLOBIN 24.6 pg (28.0-32.0); MEAN CORPUSCULAR HGB CONC 33.2 g/dL (32.0-36.0); MEAN CORPUSCULAR VOLUME 74.2 fL (83.0-99.0); MEAN PLATELET VOLUME 10.6 fL (9.4-12.3); MONOCYTES ABSOLUTE AUTO 0.72 K/uL (0.00-0.80); MONOCYTES PERCENT AUTO 9.3 % (0.0-8.0); NEUTROPHILS ABSOLUTE AUTO 5.31 K/uL (1.80-7.70); NEUTROPHILS PERCENT AUTO 68.6 % (41.0-71.0); PLATELET COUNT,PLT 151 K/uL (150-400); RED BLOOD CELL COUNT 3.29 M/uL (4.10-5.30); WHITE BLOOD CELL COUNT,WBC 7.73 K/uL (3.9-11.3)
[2024-07-11 06:27] LABS: A/G RATIO 0.3 (0.9-1.6); ALBUMIN 1.5 g/dL (3.4-5.0); BILIRUBIN TOTAL 0.7 mg/dL (0.2-1.0); CALCIUM 7.9 mg/dL (8.5-10.1); CARBON DIOXIDE,CO2 19.8 mmol/L (21.0-32.0); EST CRCL DRUG DOSING (CG) 47.53 mL/min; MAGNESIUM 1.6 mg/dL (1.8-2.4); POTASSIUM,K 3.5 mmol/L (3.5-5.1); PROTEIN TOTAL,TP 6.4 g/dL (6.4-8.2)
[2024-07-11] MEDS: Magnesium Sulf/Wat 4 GM/100 mL 4 GM in Premix Bag 1 BAG IV ONE (10:10)
[2024-07-11] MEDS: Cefepime 1 GM in Sodium Chloride 0.9% 50 ML IV SCH (22:13)
[2024-07-12] MEDS: Morphine 2 MG/ML SYRINGE IVPUSH PRN (00:44)
[2024-07-12 06:46] LABS: BASOPHILS ABSOLUTE AUTO 0.02 K/uL (0.00-0.20); BASOPHILS PERCENT AUTO 0.3 % (0.0-1.0); EOSINOPHILS ABSOLUTE AUTO 0.27 K/uL (0.00-0.45); EOSINOPHILS PERCENT AUTO 3.5 % (0.0-6.0); HEMATOCRIT 25.3 % (37.0-47.0); HEMOGLOBIN 8.5 g/dL (12.0-16.0); IMMATURE GRAN ABSOLUTE AUTO 0.23 K/uL (0.00-0.05); MEAN CORPUSCULAR HEMOGLOBIN 25.1 pg (28.0-32.0); MEAN CORPUSCULAR HGB CONC 33.6 g/dL (32.0-36.0); MEAN CORPUSCULAR VOLUME 74.6 fL (83.0-99.0); MEAN PLATELET VOLUME 10.4 fL (9.4-12.3); MONOCYTES ABSOLUTE AUTO 0.66 K/uL (0.00-0.80); MONOCYTES PERCENT AUTO 8.6 % (0.0-8.0); NEUTROPHILS ABSOLUTE AUTO 5.17 K/uL (1.80-7.70); NEUTROPHILS PERCENT AUTO 67.6 % (41.0-71.0); PLATELET COUNT,PLT 162 K/uL (150-400); RED BLOOD CELL COUNT 3.39 M/uL (4.10-5.30); WHITE BLOOD CELL COUNT,WBC 7.65 K/uL (3.9-11.3)
[2024-07-12 07:21] LABS: A/G RATIO 0.3 (0.9-1.6); ALBUMIN 1.5 g/dL (3.4-5.0); BILIRUBIN TOTAL 0.7 mg/dL (0.2-1.0); C-REACTIVE PROTEIN 13.58 mg/dL (<0.3); CALCIUM 8.4 mg/dL (8.5-10.1); CARBON DIOXIDE,CO2 24.2 mmol/L (21.0-32.0); EST CRCL DRUG DOSING (CG) 47.53 mL/min; MAGNESIUM 1.5 mg/dL (1.8-2.4); POTASSIUM,K 3.6 mmol/L (3.5-5.1); PROTEIN TOTAL,TP 6.8 g/dL (6.4-8.2)
[2024-07-12] MEDS: Insulin Glargine,Human Rec. Analog 100 Units/ML 3 ML Pen SUBCUT SCH (07:29)
[2024-07-12] MEDS: Magnesium Sulf/Wat 4 GM/100 mL 4 GM in Premix Bag 1 BAG IV ONE ×2 (09:34→13:53)
[2024-07-12] MEDS ORDERED: Magnesium Sulf/Wat 4 GM/100 mL 4 GM in Premix Bag 1 BAG IV ONE (14:00)
[2024-07-13 07:03] LABS: BASOPHILS ABSOLUTE AUTO 0.02 K/uL (0.00-0.20); BASOPHILS PERCENT AUTO 0.2 % (0.0-1.0); EOSINOPHILS PERCENT AUTO 3.6 % (0.0-6.0); HEMATOCRIT 26.5 % (37.0-47.0); HEMOGLOBIN 8.4 g/dL (12.0-16.0); IMMATURE GRAN ABSOLUTE AUTO 0.19 K/uL (0.00-0.05); IMMATURE GRAN PERCENT AUTO 2.3 % (0.0-0.4); LYMPHOCYTES ABSOLUTE AUTO 1.35 K/uL (1.00-4.80); MEAN CORPUSCULAR HEMOGLOBIN 23.9 pg (28.0-32.0); MEAN CORPUSCULAR HGB CONC 31.7 g/dL (32.0-36.0); MEAN CORPUSCULAR VOLUME 75.3 fL (83.0-99.0); MEAN PLATELET VOLUME 10.7 fL (9.4-12.3); MONOCYTES PERCENT AUTO 8.3 % (0.0-8.0); NEUTROPHILS ABSOLUTE AUTO 5.87 K/uL (1.80-7.70); NEUTROPHILS PERCENT AUTO 69.6 % (41.0-71.0); PLATELET COUNT,PLT 166 K/uL (150-400); RED BLOOD CELL COUNT 3.52 M/uL (4.10-5.30); WHITE BLOOD CELL COUNT,WBC 8.43 K/uL (3.9-11.3)
[2024-07-13 07:51] LABS: A/G RATIO 0.3 (0.9-1.6); ALBUMIN 1.5 g/dL (3.4-5.0); BILIRUBIN TOTAL 0.8 mg/dL (0.2-1.0); CALCIUM 8.2 mg/dL (8.5-10.1); CARBON DIOXIDE,CO2 25.5 mmol/L (21.0-32.0); CREATININE 0.8 mg/dL (0.6-1.0); EST CRCL DRUG DOSING (CG) 59.41 mL/min; MAGNESIUM 1.5 mg/dL (1.8-2.4); POTASSIUM,K 3.6 mmol/L (3.5-5.1)
[2024-07-13] MEDS: VANCOmycin 1.25 GM in Sodium Chloride 0.9% 250 ML IV SCH (16:32)
[2024-07-13] MEDS: Acidophilus with Citrus Pectin/L.acidophilus Tab PO SCH (20:22)
[2024-07-13] MEDS: Magnesium Sulf/Wat 2 GM/50 mL 2 GM in Premix Bag 1 BAG IV ONE (20:22)
[2024-07-14 06:48] LABS: BASOPHILS ABSOLUTE AUTO 0.02 K/uL (0.00-0.20); BASOPHILS PERCENT AUTO 0.2 % (0.0-1.0); EOSINOPHILS ABSOLUTE AUTO 0.26 K/uL (0.00-0.45); HEMATOCRIT 24.9 % (37.0-47.0); IMMATURE GRAN ABSOLUTE AUTO 0.16 K/uL (0.00-0.05); IMMATURE GRAN PERCENT AUTO 1.8 % (0.0-0.4); LYMPHOCYTES ABSOLUTE AUTO 1.26 K/uL (1.00-4.80); LYMPHOCYTES PERCENT AUTO 14.4 % (24.0-44.0); MEAN CORPUSCULAR HEMOGLOBIN 24.1 pg (28.0-32.0); MEAN CORPUSCULAR HGB CONC 32.1 g/dL (32.0-36.0); MEAN PLATELET VOLUME 9.7 fL (9.4-12.3); MONOCYTES ABSOLUTE AUTO 0.55 K/uL (0.00-0.80); MONOCYTES PERCENT AUTO 6.3 % (0.0-8.0); NEUTROPHILS ABSOLUTE AUTO 6.52 K/uL (1.80-7.70); NEUTROPHILS PERCENT AUTO 74.3 % (41.0-71.0); PLATELET COUNT,PLT 145 K/uL (150-400); RED BLOOD CELL COUNT 3.32 M/uL (4.10-5.30); WHITE BLOOD CELL COUNT,WBC 8.77 K/uL (3.9-11.3)
[2024-07-14 06:59] LABS: CALCIUM 8.4 mg/dL (8.5-10.1); CARBON DIOXIDE,CO2 25.3 mmol/L (21.0-32.0); CREATININE 0.8 mg/dL (0.6-1.0); EST CRCL DRUG DOSING (CG) 59.41 mL/min; POTASSIUM,K 3.6 mmol/L (3.5-5.1)
[2024-07-14] MEDS: DAPTOMYCIN IVPUSH SCH (13:55)
[2024-07-14] MEDS: SODIUM CHLORIDE 0.9% IVPUSH SCH (13:55)
[2024-07-14] MEDS ORDERED: VANCOmycin 1 GM in Sodium Chloride 0.9% 250 ML IV SCH (16:00)
[2024-07-15] MEDS: Spironolactone 25 MG Tab PO SCH (08:09)
[2024-07-15 09:20] LABS: CALCIUM 8.6 mg/dL (8.5-10.1); CREATININE 0.9 mg/dL (0.6-1.0); EST CRCL DRUG DOSING (CG) 52.81 mL/min; MAGNESIUM 1.8 mg/dL (1.8-2.4); POTASSIUM,K 3.8 mmol/L (3.5-5.1)
[2024-07-15 09:23] LABS: BASOPHILS ABSOLUTE AUTO 0.02 K/uL (0.00-0.20); BASOPHILS PERCENT AUTO 0.3 % (0.0-1.0); EOSINOPHILS ABSOLUTE AUTO 0.14 K/uL (0.00-0.45); EOSINOPHILS PERCENT AUTO 1.9 % (0.0-6.0); HEMATOCRIT 24.9 % (37.0-47.0); HEMOGLOBIN 8.3 g/dL (12.0-16.0); IMMATURE GRAN ABSOLUTE AUTO 0.11 K/uL (0.00-0.05); IMMATURE GRAN PERCENT AUTO 1.5 % (0.0-0.4); LYMPHOCYTES ABSOLUTE AUTO 1.02 K/uL (1.00-4.80); LYMPHOCYTES PERCENT AUTO 13.7 % (24.0-44.0); MEAN CORPUSCULAR HGB CONC 33.3 g/dL (32.0-36.0); MONOCYTES ABSOLUTE AUTO 0.45 K/uL (0.00-0.80); MONOCYTES PERCENT AUTO 6.1 % (0.0-8.0); NEUTROPHILS ABSOLUTE AUTO 5.69 K/uL (1.80-7.70); NEUTROPHILS PERCENT AUTO 76.5 % (41.0-71.0); RED BLOOD CELL COUNT 3.32 M/uL (4.10-5.30); WHITE BLOOD CELL COUNT,WBC 7.43 K/uL (3.9-11.3)
[2024-07-15 09:33] LABS: PLATELET COUNT,PLT 210 K/uL (150-400)
[2024-07-15] MEDS: DAPTOMYCIN IVPUSH SCH (12:44)
[2024-07-15] MEDS: SODIUM CHLORIDE 0.9% IVPUSH SCH (12:44)
[2024-07-15 13:18] LABS: BASOPHILS ABSOLUTE AUTO 0.03 K/uL (0.00-0.20); BASOPHILS PERCENT AUTO 0.3 % (0.0-1.0); EOSINOPHILS ABSOLUTE AUTO 0.19 K/uL (0.00-0.45); EOSINOPHILS PERCENT AUTO 2.1 % (0.0-6.0); HEMATOCRIT 28.5 % (37.0-47.0); HEMOGLOBIN 9.1 g/dL (12.0-16.0); IMMATURE GRAN ABSOLUTE AUTO 0.12 K/uL (0.00-0.05); IMMATURE GRAN PERCENT AUTO 1.3 % (0.0-0.4); LYMPHOCYTES ABSOLUTE AUTO 1.59 K/uL (1.00-4.80); LYMPHOCYTES PERCENT AUTO 17.8 % (24.0-44.0); MEAN CORPUSCULAR HEMOGLOBIN 24.6 pg (28.0-32.0); MEAN CORPUSCULAR HGB CONC 31.9 g/dL (32.0-36.0); MEAN PLATELET VOLUME 10.9 fL (9.4-12.3); MONOCYTES ABSOLUTE AUTO 0.51 K/uL (0.00-0.80); MONOCYTES PERCENT AUTO 5.7 % (0.0-8.0); NEUTROPHILS ABSOLUTE AUTO 6.51 K/uL (1.80-7.70); NEUTROPHILS PERCENT AUTO 72.8 % (41.0-71.0); PLATELET COUNT,PLT 193 K/uL (150-400); WHITE BLOOD CELL COUNT,WBC 8.95 K/uL (3.9-11.3)
[2024-07-15 13:44] LABS: CALCIUM 8.7 mg/dL (8.5-10.1); CARBON DIOXIDE,CO2 25.8 mmol/L (21.0-32.0); CREATININE 0.9 mg/dL (0.6-1.0); EST CRCL DRUG DOSING (CG) 52.81 mL/min; POTASSIUM,K 3.7 mmol/L (3.5-5.1)
[2024-07-17] MEDS: Loperamide 2 MG Cap PO PRN (06:38)
[2024-07-17] MEDS: SODIUM CHLORIDE 0.9% IVPUSH ONE (08:19)
[2024-07-17] MEDS: DAPTOMYCIN IVPUSH ONE (08:19)
[2024-07-17 08:36] VITALS: BP 116/64; PULSE 56
[2024-07-17] MEDS: Loperamide 2 MG Cap PO ONE (09:09)
== END 2024-07-17 09:15 | disposition home health service (06) | DRG 868 ==
LOC: MW.ED 19:36 → MW.ICU 07-08 01:24 → MW.MS 07-10 12:52
PROVIDERS: ADMIT Internal Medicine; ATTEND Internal Medicine
DX: B95.7 Other staphylococcus as the cause of diseases classified elsewhere (principal); R78.81 Bacteremia; M46.46 Discitis, unspecified, lumbar region; J18.9 Pneumonia, unspecified organism; I95.9 Hypotension, unspecified; I25.2 Old myocardial infarction; E78.00 Pure hypercholesterolemia, unspecified; E11.9 Type 2 diabetes mellitus without complications; E03.9 Hypothyroidism, unspecified; Z88.8 Allergy status to other drugs, medicaments and biological substances; Z88.2 Allergy status to sulfonamides; Z79.4 Long term (current) use of insulin; Z79.890 Hormone replacement therapy; Z79.899 Other long term (current) drug therapy; Z90.49 Acquired absence of other specified parts of digestive tract
CPT/HCPCS: 0240U; 36415; 51702; 71046; 71250; 72100; 72158; 73502; 73552; 74176; 80048; 80053; 80202; 81001; 82550; 82947; 83605; 83735; 84100; 84145; 85025; 85610; 85652; 86140; 87040; 87077; 87086; 87186; 87324; 87428; 87486; 87581; 87633; 93306; 96361; 96365; 97163; 99285; 99291; A9270-GY; A9579; J0692; J0696; J0878; J1644; J1815-GY; J2270; J2470; J2543; J3371; J3372; J3475; J3490; J7030; J7040; J7050

== ENCOUNTER 2024-07-20 04:33 | Emergency (ER) | payer MEDICARE, OTHER ==
[2024-07-20 06:02] LABS: APPEARANCE,URINE SLT CLOUDY; BILIRUBIN,URINE NEGATIVE (NEGATIVE); COLOR,URINE YELLOW; GLUCOSE,URINE NEGATIVE (NEGATIVE); KETONES,URINE NEGATIVE (NEGATIVE); LEUKOCYTE ESTERASE,URINE SMALL (NEGATIVE); NITRITE,URINE NEGATIVE (NEGATIVE); OCCULT BLOOD,URINE LARGE (NEGATIVE); PH,URINE 6.5 (5.0-8.0); PROTEIN,URINE 30 mg/dL (NEGATIVE)
[2024-07-20 06:03] LABS: BASOPHILS ABSOLUTE AUTO 0.02 K/uL (0.00-0.20); BASOPHILS PERCENT AUTO 0.2 % (0.0-1.0); EOSINOPHILS ABSOLUTE AUTO 0.15 K/uL (0.00-0.45); EOSINOPHILS PERCENT AUTO 1.7 % (0.0-6.0); HEMOGLOBIN 8.5 g/dL (12.0-16.0); IMMATURE GRAN ABSOLUTE AUTO 0.03 K/uL (0.00-0.05); IMMATURE GRAN PERCENT AUTO 0.3 % (0.0-0.4); LYMPHOCYTES ABSOLUTE AUTO 0.86 K/uL (1.00-4.80); LYMPHOCYTES PERCENT AUTO 9.7 % (24.0-44.0); MEAN CORPUSCULAR HEMOGLOBIN 25.1 pg (28.0-32.0); MEAN CORPUSCULAR HGB CONC 32.7 g/dL (32.0-36.0); MEAN CORPUSCULAR VOLUME 76.7 fL (83.0-99.0); MEAN PLATELET VOLUME 11.8 fL (9.4-12.3); MONOCYTES ABSOLUTE AUTO 0.47 K/uL (0.00-0.80); MONOCYTES PERCENT AUTO 5.3 % (0.0-8.0); NEUTROPHILS ABSOLUTE AUTO 7.35 K/uL (1.80-7.70); NEUTROPHILS PERCENT AUTO 82.8 % (41.0-71.0); PLATELET COUNT,PLT 128 K/uL (150-400); RED BLOOD CELL COUNT 3.39 M/uL (4.10-5.30); WHITE BLOOD CELL COUNT,WBC 8.88 K/uL (3.9-11.3)
[2024-07-20 06:08] LABS: BACTERIA,URINE 4+ (NEGATIVE); EPITHELIAL CELLS,URINE NOT SEEN (NONE-FEW); MUCUS,URINE LIGHT (NONE-MOD); RBC,URINE 30-40 (0-2/HPF)
[2024-07-20 06:11] LABS: INR 1.43 (0.86-1.11); PTT,PARTIAL THROMBOPLSTIN TIME 30.1 SEC (23.9-30.7)
[2024-07-20 06:58] VITALS: PULSE 89
[2024-07-20 07:18] LABS: A/G RATIO 0.3 (0.9-1.6); ALBUMIN 1.7 g/dL (3.4-5.0); BILIRUBIN TOTAL 0.5 mg/dL (0.2-1.0); CALCIUM 8.7 mg/dL (8.5-10.1); CARBON DIOXIDE,CO2 26.8 mmol/L (21.0-32.0); EST CRCL DRUG DOSING (CG) 47.53 mL/min; MAGNESIUM 1.3 mg/dL (1.8-2.4); POTASSIUM,K 4.4 mmol/L (3.5-5.1)
[2024-07-20 08:17] VITALS: BP 119/63
== END 2024-07-20 07:55 | disposition home or self-care (01) ==
LOC: MW.ED 04:33
DX: Z04.3 Encounter for examination and observation following other accident (principal); M54.50 Low back pain, unspecified; G89.29 Other chronic pain; E78.00 Pure hypercholesterolemia, unspecified; I25.2 Old myocardial infarction; E11.42 Type 2 diabetes mellitus with diabetic polyneuropathy; E03.9 Hypothyroidism, unspecified; Z79.899 Other long term (current) drug therapy; Z79.4 Long term (current) use of insulin; Z79.84 Long term (current) use of oral hypoglycemic drugs; Z88.2 Allergy status to sulfonamides; Z88.8 Allergy status to other drugs, medicaments and biological substances; W18.2XXA Fall in (into) shower or empty bathtub, initial encounter; Y92.002 Bathroom of unspecified non-institutional (private) residence as the place of occurrence of the external cause
CPT/HCPCS: 36415; 70450; 70450-26; 71045; 71045-26; 72125; 72125-26; 72128; 72128-26; 72131; 72131-26; 80053; 81001; 83735; 85025; 85610; 85730; 87086; 87088; 87186; 99284

== ENCOUNTER 2024-08-08 17:44 | Emergency (ER) | payer MEDICARE, OTHER ==
[2024-08-08 18:43] LABS: BASOPHILS ABSOLUTE AUTO 0.04 K/uL (0.00-0.20); BASOPHILS PERCENT AUTO 0.4 % (0.0-1.0); EOSINOPHILS ABSOLUTE AUTO 0.14 K/uL (0.00-0.45); EOSINOPHILS PERCENT AUTO 1.5 % (0.0-6.0); HEMATOCRIT 26.2 % (37.0-47.0); HEMOGLOBIN 8.4 g/dL (12.0-16.0); IMMATURE GRAN ABSOLUTE AUTO 0.04 K/uL (0.00-0.05); IMMATURE GRAN PERCENT AUTO 0.4 % (0.0-0.4); LYMPHOCYTES PERCENT AUTO 9.7 % (24.0-44.0); MEAN CORPUSCULAR HEMOGLOBIN 24.1 pg (28.0-32.0); MEAN CORPUSCULAR HGB CONC 32.1 g/dL (32.0-36.0); MEAN CORPUSCULAR VOLUME 75.3 fL (83.0-99.0); MONOCYTES ABSOLUTE AUTO 0.46 K/uL (0.00-0.80); MONOCYTES PERCENT AUTO 4.9 % (0.0-8.0); NEUTROPHILS ABSOLUTE AUTO 7.74 K/uL (1.80-7.70); NEUTROPHILS PERCENT AUTO 83.1 % (41.0-71.0); PLATELET COUNT,PLT 134 K/uL (150-400); RED BLOOD CELL COUNT 3.48 M/uL (4.10-5.30); WHITE BLOOD CELL COUNT,WBC 9.32 K/uL (3.9-11.3)
[2024-08-08 19:10] LABS: A/G RATIO 0.2 (0.9-1.6); ALBUMIN 1.7 g/dL (3.4-5.0); BILIRUBIN TOTAL 0.5 mg/dL (0.2-1.0); CALCIUM 8.4 mg/dL (8.5-10.1); CARBON DIOXIDE,CO2 23.9 mmol/L (21.0-32.0); CREATININE 1.1 mg/dL (0.6-1.0); EST CRCL DRUG DOSING (CG) 43.2 mL/min; POTASSIUM,K 3.9 mmol/L (3.5-5.1); PROTEIN TOTAL,TP 8.8 g/dL (6.4-8.2)
[2024-08-08] MEDS: Ondansetron 4 MG/2 ML SDV IVPUSH ONE (19:20)
[2024-08-08] MEDS: Iopamidol 755 MG/ML 500 ML Multipack Bottle IVPUSH ONE (22:11)
[2024-08-08] MEDS: Sodium Chloride 0.9% 1,000 ML IV ONE (22:40)
[2024-08-09] MEDS ORDERED: droPERidol 2.5 MG/ML SDV IVPUSH ONE (01:16)
[2024-08-09] MEDS ORDERED: Alum Hydrox/Mag Hydrox/Simeth 15 ML, Lidocaine 2% 5 ML PO ONE (01:16)
[2024-08-09 01:41] LABS: BILIRUBIN,URINE NEGATIVE (NEGATIVE); COLOR,URINE YELLOW; GLUCOSE,URINE NEGATIVE (NEGATIVE); KETONES,URINE NEGATIVE (NEGATIVE); LEUKOCYTE ESTERASE,URINE MODERATE (NEGATIVE); NITRITE,URINE NEGATIVE (NEGATIVE); OCCULT BLOOD,URINE TRACE-INTACT (NEGATIVE); PROTEIN,URINE TRACE mg/dL (NEGATIVE)
[2024-08-09 02:08] LABS: APPEARANCE,URINE HAZY; BACTERIA,URINE 3+ (NEGATIVE); EPITHELIAL CELLS,URINE NOT SEEN (NONE-FEW); MUCUS,URINE LIGHT (NONE-MOD)
[2024-08-09] MEDS: Acetaminophen/HYDROcodone 325-5 MG Tab PO ONE (04:44)
[2024-08-09 05:21] VITALS: BP 105/49; PULSE 100
== END 2024-08-09 05:22 | disposition home or self-care (01) ==
LOC: MW.ED 17:44
DX: L89.152 Pressure ulcer of sacral region, stage 2 (principal)
CPT/HCPCS: 36415; 71045; 74177; 80053; 81001; 84484; 85025; 87428; 93005; 96361; 96374; 99285; A9270; J2405; J7030; Q9967; 93010; 99284

== ENCOUNTER 2024-08-11 11:49 | Emergency (ER) | payer MEDICARE, OTHER ==
[2024-08-11] MEDS ORDERED: Sodium Chloride 0.9% 2.5 ML Syringe FLUSH PRN (12:15)
[2024-08-11] MEDS ORDERED: Sodium Chloride 0.9% 10 ML Syringe FLUSH PRN (12:15)
[2024-08-11] MEDS: Acetaminophen 500 MG Tab PO ONE (12:25)
[2024-08-11] MEDS: Sodium Chloride 0.9% 1,000 ML IV ONE ×2 (12:26→17:44)
[2024-08-11 13:22] LABS: BASOPHILS ABSOLUTE AUTO 0.01 K/uL (0.00-0.20); BASOPHILS PERCENT AUTO 0.1 % (0.0-1.0); EOSINOPHILS ABSOLUTE AUTO 0.01 K/uL (0.00-0.45); EOSINOPHILS PERCENT AUTO 0.1 % (0.0-6.0); HEMATOCRIT 22.9 % (37.0-47.0); HEMOGLOBIN 7.6 g/dL (12.0-16.0); IMMATURE GRAN ABSOLUTE AUTO 0.03 K/uL (0.00-0.05); IMMATURE GRAN PERCENT AUTO 0.3 % (0.0-0.4); LYMPHOCYTES ABSOLUTE AUTO 0.96 K/uL (1.00-4.80); LYMPHOCYTES PERCENT AUTO 10.4 % (24.0-44.0); MEAN CORPUSCULAR HEMOGLOBIN 24.4 pg (28.0-32.0); MEAN CORPUSCULAR HGB CONC 33.2 g/dL (32.0-36.0); MEAN CORPUSCULAR VOLUME 73.6 fL (83.0-99.0); MONOCYTES ABSOLUTE AUTO 0.51 K/uL (0.00-0.80); MONOCYTES PERCENT AUTO 5.5 % (0.0-8.0); NEUTROPHILS ABSOLUTE AUTO 7.75 K/uL (1.80-7.70); NEUTROPHILS PERCENT AUTO 83.6 % (41.0-71.0); PLATELET COUNT,PLT 85 K/uL (150-400); RED BLOOD CELL COUNT 3.11 M/uL (4.10-5.30); WHITE BLOOD CELL COUNT,WBC 9.27 K/uL (3.9-11.3)
[2024-08-11 13:58] LABS: CORONAVIRUS COVID-19 NAA NEGATIVE (NEGATIVE); INFLUENZA A NAA NEGATIVE (NEGATIVE); INFLUENZA B NAA NEGATIVE (NEGATIVE); RESPIRATORY SYNCYTIAL VIR NAA NEGATIVE (NEGATIVE)
[2024-08-11] MEDS ORDERED: DAPTOMYCIN IVPUSH SCH (14:00)
[2024-08-11] MEDS ORDERED: SODIUM CHLORIDE 0.9% IVPUSH SCH (14:00)
[2024-08-11] MEDS: DAPTOMYCIN IVPUSH ONE (14:40)
[2024-08-11] MEDS: SODIUM CHLORIDE 0.9% IVPUSH ONE (14:40)
[2024-08-11] MEDS: Acetaminophen/oxyCODONE 325-10 MG Tab PO ONE (17:38)
[2024-08-11 19:31] LABS: LACTIC ACID 1.3 mmol/L (0.4-2.0)
[2024-08-11 22:18] LABS: CALCIUM 7.7 mg/dL (8.5-10.1); EST CRCL DRUG DOSING (CG) 47.53 mL/min; POTASSIUM,K 3.7 mmol/L (3.5-5.1)
[2024-08-11 22:55] LABS: CARBON DIOXIDE,CO2 19.6 mmol/L (21.0-32.0)
[2024-08-11 23:11] LABS: APPEARANCE,URINE CLOUDY; BILIRUBIN,URINE NEGATIVE (NEGATIVE); COLOR,URINE YELLOW; GLUCOSE,URINE NEGATIVE (NEGATIVE); KETONES,URINE NEGATIVE (NEGATIVE); LEUKOCYTE ESTERASE,URINE LARGE (NEGATIVE); NITRITE,URINE NEGATIVE (NEGATIVE); OCCULT BLOOD,URINE SMALL (NEGATIVE); PH,URINE 8.5 (5.0-8.0); PROTEIN,URINE TRACE mg/dL (NEGATIVE); UROBILINOGEN,URINE 0.2 EU/dL (<2.0)
[2024-08-11 23:18] LABS: AMORPHOUS SEDIMENT,URINE FEW (NEGATIVE); BACTERIA,URINE 3+ (NEGATIVE); EPITHELIAL CELLS,URINE FEW (NONE-FEW); RBC,URINE 0-5 (0-2/HPF); WBC,URINE 20-30 (0-5/HPF)
[2024-08-11] MEDS: Azithromycin 500 MG in Sodium Chloride 0.9% 250 ML IV ONE (23:36)
[2024-08-12] MEDS: Sodium Chloride 0.9% 1,000 ML IV ONE (00:07)
[2024-08-12] MEDS: cefTRIAXone 1 GM in Sodium Chloride 0.9% 50 ML IV ONE (00:41)
[2024-08-12 03:27] LABS: BILIRUBIN TOTAL 0.4 mg/dL (0.2-1.0); CALCIUM 7.9 mg/dL (8.5-10.1); CARBON DIOXIDE,CO2 14.5 mmol/L (21.0-32.0); EST CRCL DRUG DOSING (CG) 47.53 mL/min; MAGNESIUM 1.5 mg/dL (1.8-2.4); POTASSIUM,K 3.8 mmol/L (3.5-5.1); PROTEIN TOTAL,TP 7.6 g/dL (6.4-8.2)
[2024-08-12 05:45] LABS: A/G RATIO 0.3 (0.9-1.6); ALBUMIN 1.5 g/dL (3.4-5.0)
[2024-08-12 06:59] VITALS: BP 94/46; PULSE 78
== END 2024-08-12 08:48 ==
LOC: MW.ED 11:49
DX: L89.154 Pressure ulcer of sacral region, stage 4 (principal); J18.9 Pneumonia, unspecified organism; D69.6 Thrombocytopenia, unspecified; D64.9 Anemia, unspecified; N39.0 Urinary tract infection, site not specified; I25.2 Old myocardial infarction; E78.00 Pure hypercholesterolemia, unspecified; K21.9 Gastro-esophageal reflux disease without esophagitis; E11.9 Type 2 diabetes mellitus without complications; E03.9 Hypothyroidism, unspecified; Z90.49 Acquired absence of other specified parts of digestive tract; Z88.2 Allergy status to sulfonamides; Z88.8 Allergy status to other drugs, medicaments and biological substances; Z79.4 Long term (current) use of insulin; Z79.890 Hormone replacement therapy; Z79.899 Other long term (current) drug therapy; Z75.3 Unavailability and inaccessibility of health-care facilities
CPT/HCPCS: 0241U; 36415; 71045; 80048; 80053; 81001; 82947; 83605; 83690; 83735; 85025; 87040; 87086; 87088; 87186; 93005; 96361; 96365; 96367; 96375; 99285; A9270; J0456; J0696; J0878; J7030; J7050; 93010; J3490

== ENCOUNTER 2025-03-27 07:44 | Emergency (ER) | payer MEDICARE, OTHER ==
[2025-03-27 10:45] VITALS: BP 105/49; PULSE 77
== END 2025-03-27 11:57 | disposition home or self-care (01) ==
LOC: MW.ED 07:44
DX: S30.0XXA Contusion of lower back and pelvis, initial encounter (principal); I25.2 Old myocardial infarction; E78.00 Pure hypercholesterolemia, unspecified; E11.9 Type 2 diabetes mellitus without complications; E03.9 Hypothyroidism, unspecified; M19.90 Unspecified osteoarthritis, unspecified site; Z90.49 Acquired absence of other specified parts of digestive tract; Z88.2 Allergy status to sulfonamides; Z88.8 Allergy status to other drugs, medicaments and biological substances; Z88.6 Allergy status to analgesic agent; Z79.4 Long term (current) use of insulin; Z79.890 Hormone replacement therapy; Z79.899 Other long term (current) drug therapy; W01.0XXA Fall on same level from slipping, tripping and stumbling without subsequent striking against object, initial encounter
CPT/HCPCS: 72170; 72170-26; 72220; 72220-26; 99283; 99284

== ENCOUNTER 2025-03-28 13:32 | Emergency (ER) | payer MEDICARE, OTHER ==
[2025-03-28] MEDS ORDERED: Sodium Chloride 0.9% 10 ML Syringe FLUSH PRN (13:45)
[2025-03-28] MEDS ORDERED: Sodium Chloride 0.9% 2.5 ML Syringe FLUSH PRN (13:45)
[2025-03-28] MEDS: Orphenadrine 60 MG/2 ML Inj IV ONE (14:00)
[2025-03-28 14:06] LABS: BASOPHILS ABSOLUTE AUTO 0.02 K/uL (0.00-0.20); BASOPHILS PERCENT AUTO 0.2 % (0.0-1.0); EOSINOPHILS ABSOLUTE AUTO 0.33 K/uL (0.00-0.45); EOSINOPHILS PERCENT AUTO 3.9 % (0.0-6.0); IMMATURE GRAN ABSOLUTE AUTO 0.04 K/uL (0.00-0.05); IMMATURE GRAN PERCENT AUTO 0.5 % (0.0-0.4); LYMPHOCYTES ABSOLUTE AUTO 1.50 K/uL (1.00-4.80); LYMPHOCYTES PERCENT AUTO 17.7 % (24.0-44.0); MONOCYTES ABSOLUTE AUTO 0.71 K/uL (0.00-0.80); MONOCYTES PERCENT AUTO 8.4 % (0.0-8.0); NEUTROPHILS ABSOLUTE AUTO 5.87 K/uL (1.80-7.70); NEUTROPHILS PERCENT AUTO 69.3 % (41.0-71.0); NRBC ABSOLUTE 0.00 K/uL (0.00-0.02); NRBC PERCENT 0.0 /100WBC (0.0-0.2); PLATELET COUNT,PLT 109 K/uL (150-400); RED BLOOD CELL COUNT 4.08 M/uL (4.10-5.30); WHITE BLOOD CELL COUNT,WBC 8.47 K/uL (3.9-11.3)
[2025-03-28 14:26] LABS: A/G RATIO 0.4 (0.9-1.6); ALANINE AMINOTRANSFERASE,ALT 36.0 IU/L (14-63); ASPARTATE AMNIOTRANSFERASE,AST 37.0 IU/L (15-37); BILIRUBIN TOTAL 0.5 mg/dL (0.2-1.0); BLOOD UREA NITROGEN,BUN 18.0 mg/dL (7.0-18.0); CARBON DIOXIDE,CO2 27.0 mmol/L (21.0-32.0); CHLORIDE,CL 95.0 mmol/L (98-107); CREATININE 1.0 mg/dL (0.6-1.0); EST CRCL DRUG DOSING (CG) 46.77 mL/min; ESTIMATED GFR 58.0 mL/min (>60); GLUCOSE RANDOM 152.0 mg/dL (74-106); POTASSIUM,K 3.7 mmol/L (3.5-5.1); PROTEIN TOTAL,TP 8.1 g/dL (6.4-8.2); SODIUM,NA 128.0 mmol/L (136-145)
[2025-03-28] MEDS: Iopamidol 755 MG/ML 500 ML Multipack Bottle IVPUSH STA (15:25)
[2025-03-28 18:40] VITALS: BP 106/83; PULSE 93
[2025-03-28] MEDS: Ondansetron 4 MG Tab.DIS PO ONE (19:23)
== END 2025-03-28 19:29 | disposition home or self-care (01) ==
LOC: MW.ED 13:32
DX: R10.9 Unspecified abdominal pain (principal); K21.9 Gastro-esophageal reflux disease without esophagitis; E11.9 Type 2 diabetes mellitus without complications; E03.9 Hypothyroidism, unspecified; E86.0 Dehydration; Z75.3 Unavailability and inaccessibility of health-care facilities; Z88.2 Allergy status to sulfonamides; Z88.8 Allergy status to other drugs, medicaments and biological substances; Z79.4 Long term (current) use of insulin; Z79.890 Hormone replacement therapy; Z79.899 Other long term (current) drug therapy; Z90.49 Acquired absence of other specified parts of digestive tract
CPT/HCPCS: 36415; 74177; 74177-26; 80053; 83690; 83735; 85025; 96361; 96374; 96375; 99284; 99284-25; A9270-GY; J2360; J3360; J7030; Q9967

== ENCOUNTER 2025-04-03 06:43 | Emergency (ER) | payer MEDICARE, OTHER ==
[2025-04-03] MEDS ORDERED: Sodium Chloride 0.9% 2.5 ML Syringe FLUSH PRN (06:48)
[2025-04-03] MEDS ORDERED: Sodium Chloride 0.9% 10 ML Syringe FLUSH PRN (06:48)
[2025-04-03 07:02] LABS: BASOPHILS ABSOLUTE AUTO 0.03 K/uL (0.00-0.20); BASOPHILS PERCENT AUTO 0.5 % (0.0-1.0); EOSINOPHILS ABSOLUTE AUTO 0.30 K/uL (0.00-0.45); EOSINOPHILS PERCENT AUTO 5.5 % (0.0-6.0); IMMATURE GRAN ABSOLUTE AUTO 0.02 K/uL (0.00-0.05); IMMATURE GRAN PERCENT AUTO 0.4 % (0.0-0.4); LYMPHOCYTES ABSOLUTE AUTO 1.78 K/uL (1.00-4.80); LYMPHOCYTES PERCENT AUTO 32.5 % (24.0-44.0); MONOCYTES ABSOLUTE AUTO 0.38 K/uL (0.00-0.80); MONOCYTES PERCENT AUTO 6.9 % (0.0-8.0); NEUTROPHILS ABSOLUTE AUTO 2.97 K/uL (1.80-7.70); NEUTROPHILS PERCENT AUTO 54.2 % (41.0-71.0); NRBC ABSOLUTE 0.00 K/uL (0.00-0.02); NRBC PERCENT 0.0 /100WBC (0.0-0.2); PLATELET COUNT,PLT 133 K/uL (150-400); RED BLOOD CELL COUNT 4.32 M/uL (4.10-5.30); WHITE BLOOD CELL COUNT,WBC 5.48 K/uL (3.9-11.3)
[2025-04-03 07:07] LABS: INR 1.72 (0.86-1.11)
[2025-04-03 07:25] LABS: PCO2 VENOUS 47.0 mmHG (41-51); PH,VENOUS 7.41 (7.32-7.43)
[2025-04-03 07:26] LABS: BASE EXCESS VENOUS 4.4 (-2.0-3.0); BICARBONATE,VENOUS 30.0 mEq/L (22-29); PO2 VENOUS 33.0 mmHG (35-45)
[2025-04-03 07:33] LABS: A/G RATIO 0.4 (0.9-1.6); ALANINE AMINOTRANSFERASE,ALT 21 IU/L (14-63); ASPARTATE AMNIOTRANSFERASE,AST 32 IU/L (15-37); BILIRUBIN TOTAL 0.5 mg/dL (0.2-1.0); BLOOD UREA NITROGEN,BUN 11 mg/dL (7.0-18.0); CARBON DIOXIDE,CO2 29.3 mmol/L (21.0-32.0); CHLORIDE,CL 100 mmol/L (98-107); CREATININE 1.1 mg/dL (0.6-1.0); GLUCOSE RANDOM 126 mg/dL (74-106); POTASSIUM,K 3.9 mmol/L (3.5-5.1); PRO B-TYPE NATRIUR PEPT,BNPPRO 184 pg/mL (0-450); PROTEIN TOTAL,TP 8.5 g/dL (6.4-8.2); SODIUM,NA 136 mmol/L (136-145)
[2025-04-03 07:34] LABS: ESTIMATED GFR 51 mL/min (>60)
[2025-04-03] MEDS: Iopamidol 755 Mg/ML 100 ML Bottle IVPUSH ONE (08:03)
[2025-04-03 08:51] LABS: APPEARANCE,URINE CLOUDY; GLUCOSE,URINE NEGATIVE (NEGATIVE); OCCULT BLOOD,URINE MODERATE (NEGATIVE)
[2025-04-03 09:00] LABS: AMPHETAMINES SCREEN, URINE NEGATIVE (CUTOFF=500); BUPRENORPHINE SCREEN,URINE NEGATIVE (CUTOFF=10); METHADONE SCREEN, URINE NEGATIVE (CUTOFF=200); METHAMPHETAMINES SCREEN, URINE NEGATIVE (CUTOFF=500); OXYCODONE SCREEN,URINE PRESUMPTIVE POSITIVE (CUT0FF=100); PCP SCREEN,URINE NEGATIVE (CUTOFF=25); THC SCREEN,URINE 20 NG/ML NEGATIVE (CUTOFF=50)
[2025-04-03 09:14] VITALS: BP 118/53
[2025-04-03 09:15] LABS: EPITHELIAL CELLS,URINE RARE (NONE-FEW)
[2025-04-03 12:03] VITALS: PULSE 83
== END 2025-04-03 12:04 | disposition home or self-care (01) ==
LOC: MW.ED 06:43
DX: G89.29 Other chronic pain (principal); M54.50 Low back pain, unspecified; L89.156 Pressure-induced deep tissue damage of sacral region; T83.511A Infection and inflammatory reaction due to indwelling urethral catheter, initial encounter; R26.89 Other abnormalities of gait and mobility; S32.059G Unspecified fracture of fifth lumbar vertebra, subsequent encounter for fracture with delayed healing; E78.00 Pure hypercholesterolemia, unspecified; I25.2 Old myocardial infarction; E03.9 Hypothyroidism, unspecified; E11.42 Type 2 diabetes mellitus with diabetic polyneuropathy; Z79.4 Long term (current) use of insulin; Z88.2 Allergy status to sulfonamides; Z74.01 Bed confinement status; Z51.5 Encounter for palliative care; Z79.890 Hormone replacement therapy; Z79.899 Other long term (current) drug therapy; Z88.8 Allergy status to other drugs, medicaments and biological substances
CPT/HCPCS: 36415; 71045; 71275; 72132; 74177; 80053; 80305; 81001; 82803; 83036; 83605; 83690; 83735; 83880; 84484; 85025; 85610; 85652; 86140; 87086; 93005; 96374; 99285; Q9967; 93010; 99284; J1171

== ENCOUNTER 2025-04-16 06:14 | Inpatient (IN) | payer MEDICARE, OTHER ==
[2025-04-16] MEDS: Ondansetron 4 MG/2 ML SDV IVPUSH ONE (06:47)
[2025-04-16 10:40] LABS: BASOPHILS ABSOLUTE AUTO 0.02 K/uL (0.00-0.20); BASOPHILS PERCENT AUTO 0.1 % (0.0-1.0); EOSINOPHILS ABSOLUTE AUTO 0.00 K/uL (0.00-0.45); EOSINOPHILS PERCENT AUTO 0.0 % (0.0-6.0); IMMATURE GRAN ABSOLUTE AUTO 0.12 K/uL (0.00-0.05); IMMATURE GRAN PERCENT AUTO 0.6 % (0.0-0.4); LYMPHOCYTES ABSOLUTE AUTO 0.70 K/uL (1.00-4.80); LYMPHOCYTES PERCENT AUTO 3.4 % (24.0-44.0); MEAN PLATELET VOLUME 10.9 fL (9.4-12.3); MONOCYTES ABSOLUTE AUTO 0.74 K/uL (0.00-0.80); MONOCYTES PERCENT AUTO 3.6 % (0.0-8.0); NEUTROPHILS ABSOLUTE AUTO 19.14 K/uL (1.80-7.70); NEUTROPHILS PERCENT AUTO 92.3 % (41.0-71.0); NRBC ABSOLUTE 0.00 K/uL (0.00-0.02); NRBC PERCENT 0.0 /100WBC (0.0-0.2); PLATELET COUNT,PLT 137 K/uL (150-400); RED BLOOD CELL COUNT 3.91 M/uL (4.10-5.30); WHITE BLOOD CELL COUNT,WBC 20.72 K/uL (3.9-11.3)
[2025-04-16 11:10] LABS: A/G RATIO 0.3 (0.9-1.6); ALANINE AMINOTRANSFERASE,ALT 33 IU/L (14-63); ASPARTATE AMNIOTRANSFERASE,AST 155 IU/L (15-37); BILIRUBIN TOTAL 0.5 mg/dL (0.2-1.0); BLOOD UREA NITROGEN,BUN 43 mg/dL (7.0-18.0); CARBON DIOXIDE,CO2 23.0 mmol/L (21.0-32.0); CHLORIDE,CL 100 mmol/L (98-107); CREATININE 1.5 mg/dL (0.6-1.0); GLUCOSE RANDOM 172 mg/dL (74-106); POTASSIUM,K 5.0 mmol/L (3.5-5.1); PROTEIN TOTAL,TP 7.6 g/dL (6.4-8.2); SODIUM,NA 132 mmol/L (136-145)
[2025-04-16 11:12] LABS: ESTIMATED GFR 35 mL/min (>60)
[2025-04-16] MEDS: Iopamidol 755 Mg/ML 100 ML Bottle IVPUSH ONE (11:40)
[2025-04-16 12:55] LABS: APPEARANCE,URINE SLT CLOUDY; GLUCOSE,URINE NEGATIVE (NEGATIVE); OCCULT BLOOD,URINE LARGE (NEGATIVE)
[2025-04-16 13:06] LABS: EPITHELIAL CELLS,URINE RARE (NONE-FEW)
[2025-04-16] MEDS ORDERED: Sodium Chloride 0.9% 10 ML Syringe FLUSH PRN (13:31)
[2025-04-16] MEDS ORDERED: Ondansetron 4 MG/2 ML SDV IVPUSH PRN (13:31)
[2025-04-16] MEDS ORDERED: Sodium Chloride 0.9% 2.5 ML Syringe FLUSH PRN (13:31)
[2025-04-16 14:06] LABS: LACTIC ACID 1.8 mmol/L (0.4-2.0)
[2025-04-16] MEDS ORDERED: 50% Dextrose in Water 50 ML Syringe IVPUSH PRN (14:18)
[2025-04-16] MEDS: fentaNYL 25 MCG/HR Transdermal Patch TRDERM SCH (15:05)
[2025-04-16] MEDS: Heparin Sodium 5,000 Units/ML Vial SUBCUT SCH (15:23)
[2025-04-16] MEDS: Nystatin Topical Powder 15 GM Bottle TOP SCH (22:26)
[2025-04-17 05:40] LABS: BASOPHILS ABSOLUTE AUTO 0.02 K/uL (0.00-0.20); BASOPHILS PERCENT AUTO 0.1 % (0.0-1.0); EOSINOPHILS ABSOLUTE AUTO 0.00 K/uL (0.00-0.45); EOSINOPHILS PERCENT AUTO 0.0 % (0.0-6.0); IMMATURE GRAN ABSOLUTE AUTO 0.17 K/uL (0.00-0.05); IMMATURE GRAN PERCENT AUTO 0.9 % (0.0-0.4); LYMPHOCYTES ABSOLUTE AUTO 0.70 K/uL (1.00-4.80); LYMPHOCYTES PERCENT AUTO 3.7 % (24.0-44.0); MONOCYTES ABSOLUTE AUTO 0.76 K/uL (0.00-0.80); MONOCYTES PERCENT AUTO 4.0 % (0.0-8.0); NEUTROPHILS ABSOLUTE AUTO 17.46 K/uL (1.80-7.70); NEUTROPHILS PERCENT AUTO 91.3 % (41.0-71.0); NRBC ABSOLUTE 0.00 K/uL (0.00-0.02); NRBC PERCENT 0.0 /100WBC (0.0-0.2); PLATELET COUNT,PLT 126 K/uL (150-400); RED BLOOD CELL COUNT 3.57 M/uL (4.10-5.30); WHITE BLOOD CELL COUNT,WBC 19.11 K/uL (3.9-11.3)
[2025-04-17 06:21] LABS: A/G RATIO 0.3 (0.9-1.6); ALANINE AMINOTRANSFERASE,ALT 31.0 IU/L (14-63); ASPARTATE AMNIOTRANSFERASE,AST 107.0 IU/L (15-37); BILIRUBIN TOTAL 0.5 mg/dL (0.2-1.0); BLOOD UREA NITROGEN,BUN 41.0 mg/dL (7.0-18.0); CARBON DIOXIDE,CO2 19.2 mmol/L (21.0-32.0); CHLORIDE,CL 106.0 mmol/L (98-107); CREATININE 1.4 mg/dL (0.6-1.0); EST CRCL DRUG DOSING (CG) 33.41 mL/min; GLUCOSE RANDOM 191.0 mg/dL (74-106); PHOSPHORUS 2.9 mg/dL (2.6-4.7); POTASSIUM,K 4.4 mmol/L (3.5-5.1); PROTEIN TOTAL,TP 7.0 g/dL (6.4-8.2); SODIUM,NA 137.0 mmol/L (136-145)
[2025-04-17 06:23] LABS: ESTIMATED GFR 39.0 mL/min (>60)
[2025-04-18 05:54] LABS: BASOPHILS ABSOLUTE AUTO 0.02 K/uL (0.00-0.20); BASOPHILS PERCENT AUTO 0.1 % (0.0-1.0); EOSINOPHILS ABSOLUTE AUTO 0.00 K/uL (0.00-0.45); EOSINOPHILS PERCENT AUTO 0.0 % (0.0-6.0); IMMATURE GRAN ABSOLUTE AUTO 0.11 K/uL (0.00-0.05); IMMATURE GRAN PERCENT AUTO 0.8 % (0.0-0.4); LYMPHOCYTES ABSOLUTE AUTO 0.61 K/uL (1.00-4.80); LYMPHOCYTES PERCENT AUTO 4.3 % (24.0-44.0); MONOCYTES ABSOLUTE AUTO 0.47 K/uL (0.00-0.80); MONOCYTES PERCENT AUTO 3.3 % (0.0-8.0); NEUTROPHILS ABSOLUTE AUTO 12.90 K/uL (1.80-7.70); NEUTROPHILS PERCENT AUTO 91.5 % (41.0-71.0); NRBC ABSOLUTE 0.02 K/uL (0.00-0.02); NRBC PERCENT 0.1 /100WBC (0.0-0.2); PLATELET COUNT,PLT 130 K/uL (150-400); RED BLOOD CELL COUNT 3.12 M/uL (4.10-5.30); WHITE BLOOD CELL COUNT,WBC 14.11 K/uL (3.9-11.3)
[2025-04-18 06:19] LABS: A/G RATIO 0.3 (0.9-1.6); ALANINE AMINOTRANSFERASE,ALT 50.0 IU/L (14-63); ASPARTATE AMNIOTRANSFERASE,AST 172.0 IU/L (15-37); BILIRUBIN TOTAL 0.6 mg/dL (0.2-1.0); BLOOD UREA NITROGEN,BUN 33.0 mg/dL (7.0-18.0); CARBON DIOXIDE,CO2 21.1 mmol/L (21.0-32.0); CHLORIDE,CL 115.0 mmol/L (98-107); CREATININE 1.2 mg/dL (0.6-1.0); EST CRCL DRUG DOSING (CG) 38.98 mL/min; GLUCOSE RANDOM 170.0 mg/dL (74-106); POTASSIUM,K 3.5 mmol/L (3.5-5.1); PROTEIN TOTAL,TP 6.4 g/dL (6.4-8.2); SODIUM,NA 147.0 mmol/L (136-145)
[2025-04-18 06:29] LABS: ESTIMATED GFR 46.0 mL/min (>60)
[2025-04-19 06:10] LABS: BASOPHILS ABSOLUTE AUTO 0.01 K/uL (0.00-0.20); BASOPHILS PERCENT AUTO 0.1 % (0.0-1.0); EOSINOPHILS ABSOLUTE AUTO 0.00 K/uL (0.00-0.45); EOSINOPHILS PERCENT AUTO 0.0 % (0.0-6.0); IMMATURE GRAN ABSOLUTE AUTO 0.09 K/uL (0.00-0.05); IMMATURE GRAN PERCENT AUTO 0.7 % (0.0-0.4); LYMPHOCYTES ABSOLUTE AUTO 1.40 K/uL (1.00-4.80); LYMPHOCYTES PERCENT AUTO 11.1 % (24.0-44.0); MEAN PLATELET VOLUME 11.1 fL (9.4-12.3); MONOCYTES ABSOLUTE AUTO 0.60 K/uL (0.00-0.80); MONOCYTES PERCENT AUTO 4.7 % (0.0-8.0); NEUTROPHILS ABSOLUTE AUTO 10.56 K/uL (1.80-7.70); NEUTROPHILS PERCENT AUTO 83.4 % (41.0-71.0); NRBC ABSOLUTE 0.00 K/uL (0.00-0.02); NRBC PERCENT 0.0 /100WBC (0.0-0.2); PLATELET COUNT,PLT 138 K/uL (150-400); RED BLOOD CELL COUNT 3.01 M/uL (4.10-5.30); WHITE BLOOD CELL COUNT,WBC 12.66 K/uL (3.9-11.3)
[2025-04-19 06:39] LABS: A/G RATIO 0.3 (0.9-1.6); ALANINE AMINOTRANSFERASE,ALT 151.0 IU/L (14-63); ASPARTATE AMNIOTRANSFERASE,AST 487.0 IU/L (15-37); BILIRUBIN TOTAL 0.8 mg/dL (0.2-1.0); BLOOD UREA NITROGEN,BUN 28.0 mg/dL (7.0-18.0); CARBON DIOXIDE,CO2 19.3 mmol/L (21.0-32.0); CHLORIDE,CL 125.0 mmol/L (98-107); CREATININE 1.2 mg/dL (0.6-1.0); EST CRCL DRUG DOSING (CG) 38.98 mL/min; GLUCOSE RANDOM 154.0 mg/dL (74-106); POTASSIUM,K 3.2 mmol/L (3.5-5.1); PROTEIN TOTAL,TP 6.6 g/dL (6.4-8.2); SODIUM,NA 154.0 mmol/L (136-145)
[2025-04-19 06:50] LABS: ESTIMATED GFR 46.0 mL/min (>60)
[2025-04-19] MEDS: LORazepam 2 MG/ML SDV IVPUSH PRN (11:51)
[2025-04-20 07:00] LABS: BASOPHILS ABSOLUTE AUTO 0.01 K/uL (0.00-0.20); BASOPHILS PERCENT AUTO 0.1 % (0.0-1.0); EOSINOPHILS ABSOLUTE AUTO 0.02 K/uL (0.00-0.45); EOSINOPHILS PERCENT AUTO 0.2 % (0.0-6.0); IMMATURE GRAN ABSOLUTE AUTO 0.08 K/uL (0.00-0.05); IMMATURE GRAN PERCENT AUTO 0.7 % (0.0-0.4); LYMPHOCYTES ABSOLUTE AUTO 1.53 K/uL (1.00-4.80); LYMPHOCYTES PERCENT AUTO 12.9 % (24.0-44.0); MONOCYTES ABSOLUTE AUTO 0.41 K/uL (0.00-0.80); MONOCYTES PERCENT AUTO 3.5 % (0.0-8.0); NEUTROPHILS ABSOLUTE AUTO 9.79 K/uL (1.80-7.70); NEUTROPHILS PERCENT AUTO 82.6 % (41.0-71.0); NRBC ABSOLUTE 0.00 K/uL (0.00-0.02); NRBC PERCENT 0.0 /100WBC (0.0-0.2); PLATELET COUNT,PLT 132 K/uL (150-400); RED BLOOD CELL COUNT 2.86 M/uL (4.10-5.30); WHITE BLOOD CELL COUNT,WBC 11.84 K/uL (3.9-11.3)
[2025-04-20 07:07] LABS: A/G RATIO 0.3 (0.9-1.6); ALANINE AMINOTRANSFERASE,ALT 128.0 IU/L (14-63); ASPARTATE AMNIOTRANSFERASE,AST 247.0 IU/L (15-37); BILIRUBIN TOTAL 0.7 mg/dL (0.2-1.0); BLOOD UREA NITROGEN,BUN 25.0 mg/dL (7.0-18.0); CARBON DIOXIDE,CO2 20.8 mmol/L (21.0-32.0); CHLORIDE,CL 133.0 mmol/L (98-107); CREATININE 1.2 mg/dL (0.6-1.0); EST CRCL DRUG DOSING (CG) 38.98 mL/min; GLUCOSE RANDOM 144.0 mg/dL (74-106); POTASSIUM,K 3.0 mmol/L (3.5-5.1); PROTEIN TOTAL,TP 6.3 g/dL (6.4-8.2)
[2025-04-20 07:26] LABS: ESTIMATED GFR 46.0 mL/min (>60); SODIUM,NA 164.0 mmol/L (136-145)
[2025-04-20 08:51] VITALS: PULSE 107
[2025-04-20 12:16] VITALS: BP 132/73
== END 2025-04-20 12:46 | disposition hospice, home (50) | DRG 871 ==
LOC: MW.ED 06:14 → MW.MS 13:28
PROVIDERS: ADMIT Internal Medicine; ATTEND Internal Medicine
DX: R10.9 Unspecified abdominal pain (principal); A41.9 Sepsis, unspecified organism; L89.153 Pressure ulcer of sacral region, stage 3; N17.9 Acute kidney failure, unspecified; M46.26 Osteomyelitis of vertebra, lumbar region; E46 Unspecified protein-calorie malnutrition; Z66 Do not resuscitate; Z51.5 Encounter for palliative care; R62.7 Adult failure to thrive; R52 Pain, unspecified; E11.9 Type 2 diabetes mellitus without complications; E78.00 Pure hypercholesterolemia, unspecified; K21.9 Gastro-esophageal reflux disease without esophagitis; M19.90 Unspecified osteoarthritis, unspecified site; M81.0 Age-related osteoporosis without current pathological fracture; M06.9 Rheumatoid arthritis, unspecified; E11.40 Type 2 diabetes mellitus with diabetic neuropathy, unspecified; F32.A Depression, unspecified; E03.9 Hypothyroidism, unspecified; Z96.659 Presence of unspecified artificial knee joint; I25.2 Old myocardial infarction; Z85.038 Personal history of other malignant neoplasm of large intestine; Z98.49 Cataract extraction status, unspecified eye; Z79.4 Long term (current) use of insulin; Z88.8 Allergy status to other drugs, medicaments and biological substances; Z88.2 Allergy status to sulfonamides; Z79.899 Other long term (current) drug therapy; Z90.49 Acquired absence of other specified parts of digestive tract; Z98.890 Other specified postprocedural states
CPT/HCPCS: 36415; 51702; 71260; 74177; 80053; 81001; 83605; 85025; 87040 ×2; 87077; 87186; 96365; 96375; 96376; 99285; J1171 ×2; J2405; J2543; Q9967; 80202; 82947; 83735; 84100; 87070; 87075; 87205; 99223; 99232; 99239; A9270-GY; J0456; J1644; J1815-GY; J2060; J3373; J3374; J7030; J7050